=== PATIENT | male | born 1935 | race Caucasian/White ===

== ENCOUNTER → 2016-09-16 | Day surgery (SDC) | payer OTHER ==
[2016-09-14 12:28] VITALS: BMI 28.1
[~2016-09-16] MED LIST: HEPARIN NA (PORCINE) 5,000 UNITS/ML 1ML VIAL ONE; LACTATED RINGERS SOLUTION 1,000 ML IV SCH; LIDOCAINE HCL 1%, 10 MG/ML (20ML VIAL) ONE; LIDOCAINE HCL 1%, 10 MG/ML (50 mL VIAL) IJ ONE; MIDAZOLAM HCL 2 MG/2 ML SINGLE DOSE VIAL ONE; ONDANSETRON 4 MG/2 ML VIAL IVPUSH PRN; PROPOFOL 20 ML ONE; ceFAZolin SODIUM 1 GM VIAL IVPB ONE
--- NOTE | 2016-09-16 15:57 | OP ---
Operative Note - Note: Operative Date: 09/16/16 Pre-Operative Diagnosis: LLE claudication Operation: Aortogram, LLE angiogram, SFA orbital atherectomy, DCB angioplasty , with sfa stent placement Findings: mid sfa occlusion Post-Operative Diagnosis: Same as Pre-op Surgeon: Jerzy Kendrick Anesthesia: Fractional Estimated Blood Loss (mls): 50 Operative Report Dictated: Yes
--- NOTE | 2016-09-16 16:00 | HP ---
Admitting History and Physical - Admission Chief Complaint: LLE claudication - Smoking History Smoking history: Former smoker Have you smoked in the past 12 months: No If you are a former smoker, when did you quit?: 15YRS AGO - Alcohol/Substance Use Hx Alcohol Use: No Home Medications - Allergies Allergies/Adverse Reactions: Allergies Allergy/AdvReac Type Severity Reaction Status Date / Time No Known Allergies Allergy Verified 12/08/15 15:23 - Home Medications Home Medications: Ambulatory Orders Apixaban [Eliquis] 5 mg PO BID 09/14/16 Donepezil HCl [Aricept -] 5 mg PO DAILY 09/14/16 Ipratropium/Albuterol Sulfate [Combivent Respimat Inhal [place]] 4 gm IH QID PRN 09/14/16 Lisinopril/Hydrochlorothiazide [Lisinopril-Hctz 20-25 mg Tab] 1 each PO DAILY Metformin HCl [Metformin HCl ER] 1,000 mg PO BID 09/14/16 Metoprolol Tartrate [Lopressor] 50 mg PO BID 09/14/16 Tamsulosin HCl 0.4 mg PO HS 09/14/16 Physical Examination Vital Signs: Vital Signs Temperature 97.6 F 09/16/16 11:02 Pulse Rate 74 09/16/16 11:02 Respiratory Rate 18 09/16/16 11:02 Blood Pressure 100/58 09/16/16 11:02 O2 Sat by Pulse Oximetry (%) 95 09/16/16 11:02 Constitutional: Yes: Well Nourished Eyes: Yes: WNL HENT: Yes: WNL Neck: Yes: WNL Cardiovascular: Yes: WNL Respiratory: Yes: WNL Gastrointestinal: Yes: WNL Extremities: Yes: WNL Edema: No Peripheral Pulses WNL: No Integumentary: Yes: WNL Neurological: Yes: WNL Assessment/Plan LLE claudication 1. For angiogram left lower ext today
[2016-09-16 16:57] VITALS: TEMP 97.5
[2016-09-16 17:52] VITALS: BP 125/45; PULSE 78
--- NOTE | 2016-09-17 09:43 | OP ---
DATE OF OPERATION: 09/16/2016 PREOPERATIVE DIAGNOSIS: Left lower extremity claudication. POSTOPERATIVE DIAGNOSIS: Left lower extremity claudication. PROCEDURE: Aortogram, left lower extremity angiogram, superficial femoral artery orbital atherectomy, superficial femoral artery drug-coated balloon angioplasty, superficial femoral artery stent placement. SURGEON: Jerzy Borden DO ANESTHESIA: Fractional. BLOOD LOSS: 50 mL. INDICATIONS: The patient is an 81-year-old male who has left lower extremity claudication. 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 It was decided he would need an angiogram. The patient was consented for the procedure understanding all risks, benefits, and alternatives and was then taken to the operating room. DESCRIPTION OF PROCEDURE: Once in the operating room, he was laid on the operating room table in a supine manner. The area of the right and left groin was prepped and draped in a sterile surgical manner. We then went ahead and injected 10 mL of lidocaine 2% over the right common femoral artery. Under ultrasound guidance, we visualized the right common femoral artery, and our micropuncture needle was used, and we punctured the artery. Micropuncture wire was inserted, and a traditional 5-Ch[place]an sheath was inserted. A 0.035 floppy guidewire was inserted into the aorta followed by Omni Flush catheter. We then shot an aortogram via hand injection showing that the aorta and the iliac arteries were without any disease. We then used our 0.035 floppy guidewire up and over to the left common femoral artery, and our Omni Flush catheter followed. We then shot an angiogram of the left lower extremity showing that the common femoral artery, the profunda, and the proximal SFA were patent. The [id number] SFA was heavily calcified, and there was an area of occlusion that filled late. The popliteal artery was patent, and the patient had 1-vessel runoff just PT going into the foot. At this point, we placed a 0.035 stiff guidewire down into the SFA. Omni Flush catheter was removed. A 6 x 45 crossover sheath was placed. Then 5000 units of IV heparin was then administered to the patient. We then using our Quick-Cross catheter were able to navigate across our occlusion in the SFA and place our wire in the posterior tibial artery. We then exchanged the wire for a ViperWire. We then used a [employer] orbital atherectomy device and performed orbital atherectomy of the [id number] SFA. We then shot a completion angiogram showing that the SFA was patent but still stenosed. We then went ahead and used a 6 x 10 drug-coated balloon Lutonix balloon and performed angioplasty of the [id number]-sp-jldroa SFA. Balloon was left up for 2 minutes. We then went ahead and shot a completion angiogram showing that the SFA was patent but had recoil. At this point, we placed a 6 x 10 LifeStent in the SFA. Completion angiogram now showed that the SFA was completely patent and there was good, brisk flow, and the patient had good runoff into the foot with the PT. The patient also now had a palpable PT pulse. At this point, we brought our sheath up and over, and StarClose device was successfully deployed in the right common femoral artery. Areas were wet and dried, and Dermabond was placed. The patient tolerated the procedure with no complication. The patient was transferred to the PACU in stable condition. JERZY BORDEN DO [id number]
--- NOTE | 2016-09-20 10:59 | OP ---
DATE OF OPERATION: 09/16/2016 PREOPERATIVE DIAGNOSIS: Left lower extremity claudication. POSTOPERATIVE DIAGNOSIS: Left lower extremity claudication. PROCEDURE: Aortogram, left lower extremity angiogram, superficial femoral artery athrectomy with drug-coated balloon angioplasty with superficial femoral artery stent placement. SURGEON: Jerzy Borden DO ANESTHESIA: Fractional. BLOOD LOSS: 50 mL. INDICATIONS: The patient is an 81-year-old male who complains of severe lumbar claudication. Preoperative ultrasound in the office done shows that he has SFA stenosis/occlusion. It was decided that he would need an angiogram. The patient came in through ambulatory surgery. The patient was consented for the procedure understanding all risks, benefits, and alternatives and was then taken to the operating room. DESCRIPTION OF PROCEDURE: Once in the operating room, he was laid on the operating room table in a supine manner. The area of the right and left groin was prepped and draped in a sterile surgical manner. We then injected 10 mL of lidocaine 2% over the right common femoral artery. We then went ahead and punctured the right common femoral artery using a micropuncture needle. Micropuncture wire was inserted and a traditional 5-Slovenian sheath was inserted. We then placed a 0.035 floppy guidewire up into the aorta under fluoroscopy followed by an Omni Flush catheter. We then shot an aortogram via hand injection showing that the aorta and the iliac arteries were without any disease. We then took our 0.035 floppy guidewire and brought it over to the left common femoral artery followed by the Omni Flush catheter. We then shot a left lower extremity angiogram showing that the common femoral artery, the profunda, and the proximal SFA were patent. The [id number] SFA had an occlusion. We constituted in the distal SFA from collaterals. The patient had 1-vessel runoff, which was the posterior tibial artery going into the foot. The popliteal artery was patent as well. At this point, we placed a 0.035 stiff guidewire into the SFA. We then took out our Omni Flush catheter. We placed a 6 x 45 crossover sheath then 5000 units of IV heparin was administered to the patient. Using a Quick-Cross catheter, we selectively crossed our occlusion in the SFA, and our wire was then exchanged for a ViperWire. We then went ahead and used a [facility] orbital atherectomy device and performed orbital athrectomy of the SFA. We then went ahead and used a 6 x10 Lutonix drug-coated balloon and performed angioplasty of the SFA. Completion angiogram showed that there was a small dissection in the artery. We then went ahead and used a 6 x 10 LifeStent, and that was deployed. Completion angiogram showed that the SFA was now patent with good brisk flow going down into the foot. Using a 6 x 10 balloon, we ballooned the stent in place as well. At this point, we brought our sheath up and over. The patient now had a palpable PT pulses. We brought our sheath up and over, and StarClose device was successfully deployed in the right common femoral artery. Pressure held for 5 minutes. After there was no bleeding, the area was wet and dried, and Dermabond was placed. The patient tolerated the procedure with no complications. The patient was transferred to the PACU in stable condition. JERZY BORDEN DO NP/[id number]
== END | disposition home or self-care (01) ==
LOC: JASU-SURG 05:10
PROVIDERS: ATTEND Surgery Vascular Surgery
PROC: 047L3D1 Dilation of Left Femoral Artery with Intraluminal Device, using Drug-Coated Balloon, Percutaneous Approach (ICD-10-PCS; principal; 2016-09-16 12:30)
DX: I70.212 Atherosclerosis of native arteries of extremities with intermittent claudication, left leg (principal)
CPT/HCPCS: 37227; C1876; C2623; 76000-TC; 94760; J1644

== ENCOUNTER 2017-01-12 12:20 | Inpatient (IN) | payer OTHER ==
--- NOTE | 2017-01-12 13:34 | PDOC ---
History of Present Illness - General Chief Complaint: Shortness of Breath Stated Complaint: SOB Time Seen by Provider: 01/12/17 13:29 - History of Present Illness Initial Comments: 01/12/17 13:35 81 yo M with h/o HTN, NIDDM, COPD, A-fib (on Eliquis) who presents with SOB. Pt. reports increased SOB, and non productive cough beginning yesterday evening. Denies fevers/chills, N/V, chest pain, Méndez, orthopnea, pleuritic chest pain, hemoptysis, increased swelling, weakness, lightheadedness, sensory changes , abdominal pain, urinary complaints. Symtpoms not relieved with duoneb treatment x 4/day. Tobacco cessation 30 years ago. Denies h/o OH, cardiac stentting, CABG. Past History - Past Medical History Allergies/Adverse Reactions: Allergies Allergy/AdvReac Type Severity Reaction Status Date / Time azithromycin Allergy Verified 01/12/17 16:16 Home Medications: Ambulatory Orders Apixaban [Eliquis] 5 mg PO BID 09/14/16 Donepezil HCl [Aricept -] 5 mg PO DAILY 09/14/16 Lisinopril/Hydrochlorothiazide [Lisinopril-Hctz 20-25 mg Tab] 1 each PO DAILY Metformin HCl [Metformin HCl ER] 1,000 mg PO BID 09/14/16 Metoprolol Tartrate [Lopressor] 25 mg PO BID 09/14/16 Tamsulosin HCl 0.4 mg PO HS 09/14/16 Ipratropium/Albuterol Sulfate [Combivent Respimat Inhal [place]] 1 inh IH QID COPD: No Diabetes: Yes Disorders: Yes (BPH) HTN: Yes Hypercholesterolemia: Yes - Surgical History Appendectomy: Yes - Suicide/Smoking/Psychosocial Hx Smoking History: Never smoked Have you smoked in the past 12 months: No If you are a former smoker, when did you quit?: 15YRS AGO Hx Alcohol Use: No Drug/Substance Use Hx: No Substance Use Type: None Review of Systems - Review of Systems Comments:: 01/12/17 14:14 GENERAL/CONSTITUTIONAL: No fever or chills. No weakness. HEAD, EYES, EARS, NOSE AND THROAT: No change in vision. No ear pain or discharge. No sore throat.- CARDIOVASCULAR: + shortness of breath and non productive cough.No chest pain RESPIRATORY: + wheezing. No cough, or hemoptysis. GASTROINTESTINAL: No nausea, vomiting, diarrhea or constipation. GENITOURINARY: No dysuria, frequency, or change in urination. MUSCULOSKELETAL: No joint or muscle swelling or pain. No neck or back pain. SKIN: No rash NEUROLOGIC: No headache, vertigo, loss of consciousness, or change in strength/ sensation. ENDOCRINE: No increased thirst. No abnormal weight change HEMATOLOGIC/LYMPHATIC: No anemia, easy bleeding, or history of blood clots. ALLERGIC/IMMUNOLOGIC: No hives or skin allergy. *Physical Exam - Vital Signs Last Vital Signs Temp Pulse Resp BP Pulse Ox 97.4 F L 97 H 22 134/84 96 01/12/17 12:21 01/12/17 12:21 01/12/17 12:21 01/12/17 12:21 01/12/17 13:06 - Physical Exam Comments: 01/12/17 14:14 GENERAL: Awake, alert, and fully oriented, in no acute distress HEAD: No signs of trauma, normocephalic, atraumatic EYES: PERRLA, EOMI, sclera anicteric, conjunctiva clear ENT:Hearing grossly normal, nares patent, oropharynx clear without exudates. Moist mucosa NECK: Normal ROM, supple, no lymphadenopathy, JVD, or masses LUNGS: Diffuse inspiraory and expiratory rhonci BL. No distress, speaks full sentences. HEART: Irregular rate and rhythm, normal S1 and S2, no murmurs, rubs or gallops , peripheral pulses normal and equal bilaterally. EXTREMITIES : Normal inspection, Normal range of motion, no edema. No clubbing or cyanosis. SKIN: Warm, Dry, normal turgor, no rashes or lesions noted. Heart Score/ECG Review - History History: Slightly suspicious - Electrocardiogram EKG: Non specific repolarization disturbance - Age Age: >/= 65 - Risk Factors Risk Factors Heart Score: Yes Hx Hypertension Based on the list above the patient has:: 1-2 risk factors - Troponin Troponin: </= normal limit - Score Heart Score - Total: 4 - ST and T Early Repolarization: No Non Specific ST-T Wave changes: No - ECG Impressions Normal ECG: No Non-specific ST Elevation: No Ischemic Changes: No Tachycardia: Afib w/controlled rate ED Treatment Course - LABORATORY CBC & Chemistry Diagram: 01/12/17 13:57 01/12/17 13:30 Medical Decision Making - Medical Decision Making 01/12/17 14:42 81 yo M with h/o HTN, NIDDM, COPD, A-fib (on Eliquis) who arrives with increased SOB, non 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 Denies fevers/chills, N/V, chest pain, Méndez, orthopnea, pleuritic chest pain, hemoptysis, increased swelling , weakness, lightheadedness, sensory changes, abdominal pain, urinary complaints. Symtpoms not relieved with duoneb treatment x 4/day. Tobacco cessation 30 years ago. Denies h/o OH, cardiac stentting, CABG. Physical exam with diffuse insp/exp rhonci and irregular rate and rhythm. Temp 97.4. Patient s /s suggestive of COPD exacerbation of viral etiology vs. PNA. Low suspicion of PE in patient, with low risk PE based on well's criteria. No h/o PE/DVT, recent immobilization, malignancy, or clinical s/s. Will consider D-dimer if patient status not improved with treatment. Patient with cardiac risk factors. ACS/OH r/ o. ED Course : EKG: A-fib with controlled rate, absent NICHOLAS, STD, or TWI. CBC, CMP, Sepsis Protocol. 01/12/17 15:17 INR: 1.24 01/12/17 15:17 CMP/CBC: Unremarkable Trop: Neg 01/12/17 15:18 UA; 1 + Blood, WBC 7, RBC 1, Nitrite Neg 01/12/17 15:19 CXR: No acute pathology. 01/12/17 16:38 Breathing continues to be labored with audible bedside wheezing. Heart score with 13 % risk MACE. 01/12/17 16:51 Microblogged Hospitalist 01/12/17 17:12 Duonebs. Admit to Hospitalist Obs *DC/Admit/Observation/Transfer Diagnosis at time of Disposition: COPD exacerbation - Discharge Dispostion Disposition: HOME Condition at time of disposition: Stable Admit: No - Referrals Referrals: Alessandro Cruz MD [Primary Care Provider] - - Patient Instructions Printed Discharge Instructions: DI for Chronic Obstructive Pulmonary Disease Additional Instructions: Please return to the emergency department with any new or worsening symptoms or concerns. Please follow up with your primary care physician within the next one week. Please take Oral Prednisone once per day and Azithromycin two times per day. - Post Discharge Activity - Attestations Physician Attestion: 01/12/17 15:20 I attest to the information provided in this note.
[2017-01-12] MEDS ORDERED: SODIUM CHLORIDE 0.9% 1000 ML INFUS.BAG IV ONE (13:36)
[2017-01-12] MEDS ORDERED: ALBUTEROL SO4 2.5/IPRATROPIUM 0.5 INH SOL 3 ML VIAL.NEB. NEB PRN (14:08)
[2017-01-12 14:10] LABS: VENOUS BLOOD GAS HCO3 28.7 meq/L (19-25); VENOUS PH 7.42 (7.32-7.42)
[2017-01-12] MEDS ORDERED: ALBUTEROL SO4 2.5/IPRATROPIUM 0.5 INH SOL 3 ML VIAL.NEB. NEB ONE ×3 (14:13→21:18)
[2017-01-12 14:25] LABS: BASOPHIL 0.8 % (0-2.0); MCH 31.5 pg (25.7-33.7); MCHC 33.3 g/dl (32.0-35.9); MEAN CELL VOLUME 94.6 fl (80-96); MEAN PLT VOLUME 11.8 fl (7.5-11.1); NEUTROPHILS 47.8 % (42.8-82.8); PLATELET COUNT 121 K/MM3 (134-434); RDW 14.1 % (11.9-15.9)
[2017-01-12] MEDS ORDERED: predniSONE 20 MG TABLET (UD) PO ONE (14:28)
[2017-01-12 14:33] LABS: PH,URINE 6.5 (5.0-8.0); URINE APPEARANCE CLEAR; URINE BILIRUBIN NEGATIVE (NEGATIVE); URINE BLOOD 1+ (NEGATIVE); URINE COLOR LT. YELLOW; URINE GLUCOSE (UA) NEGATIVE (NEGATIVE); URINE KETONE NEGATIVE (NEGATIVE); URINE NITRITE NEGATIVE (NEGATIVE); URINE PROTEIN NEGATIVE (NEGATIVE); URINE UROBILINOGEN 0.2 mg/dL (0.2-1.0)
--- NOTE | 2017-01-12 14:39 | PDOC ---
Attending Attestation - Resident Resident Name: ApolinarJamaalCristian - ED Attending Attestation I have performed the following: I have examined & evaluated the patient, The case was reviewed & discussed with the resident, I agree w/resident's findings & plan, Exceptions are as noted - HPI HPI: 01/12/17 14:23 81 yo M with h/o HTN, NIDDM, COPD, A-fib (on Eliquis) p/w SOB since 01/05. Pt also reports new cough since last night and this prompted him to come in today. Pt has been using albuterol/atrovent Q4hrs with minimal relief. Denies fevers/ chills. Denies CP, LE edema, abd pain, N/V/D, weakness, dizziness, headache. - Physicial Exam PE: 01/12/17 14:40 GENERAL: Awake, alert, and fully oriented, in no acute distress HEAD: No signs of trauma EYES: PERRLA, EOMI, sclera anicteric, conjunctiva clear ENT: Auricles normal inspection, hearing grossly normal, nares patent, oropharynx clear without exudates. Moist mucosa NECK: Normal ROM, supple, no lymphadenopathy, JVD, or masses LUNGS: moderate air movement, diffuse mild wheezing HEART: Regular rate and rhythm, normal S1 and S2, no murmurs, rubs or gallops ABDOMEN: Soft, nontender, normoactive bowel sounds. No guarding, no rebound. No masses EXTREMITIES: Normal range of motion, no edema. No clubbing or cyanosis. No cords, erythema, or tenderness NEUROLOGICAL: Normal speech, cranial nerves intact, negative pronator drift, 5/ 5 strength in all 4 extremities, normal sensation to light touch in all 4 extremities, normal cerebellar exam, normal gait, normal reflexes and tone SKIN: Warm, Dry, normal turgor, no rashes or lesions noted. - Medical Decision Making 01/12/17 14:40 81-year-old male with multiple medical problems presents with shortness of breath for one week, now associated with a cough. Vitals remarkable initially for very mild hypothermia and slight tachycardia to 97. Sepsis protocol was ordered, however remainder patient's vitals are within normal limits. Patient is well-appearing and has diffuse wheezing on exam with moderate air movement. Findings consistent with likely COPD exacerbation plus or minus pneumonia given new cough and borderline vitals. ACS is also a consideration although his EKG is nonischemic. PE is a possibility however the patient is low risk and we have a better reason for his symptoms. Will consider PE if he does not improve with nebs and steroids.
[2017-01-12] MEDS ORDERED: predniSONE 20 MG TABLET (UD) ONE (14:41)
[2017-01-12 14:46] LABS: INR 1.24 (0.82-1.09)
[2017-01-12 14:49] LABS: ACTIVATED PTT 31.8 SECONDS (26.9-34.4)
[2017-01-12 14:55] LABS: ANION GAP 13 (8-16); BILIRUBIN,TOTAL 0.5 mg/dL (0.2-1.0); CALCIUM 9.3 mg/dL (8.5-10.1); CO2 26 mmol/L (21-32); GLUCOSE,RANDOM 94 mg/dL (74-106); SGOT/AST 11 U/L (15-37); SGPT/ALT 21 U/L (12-78); TOT PROT 7.4 g/dl (6.4-8.2)
[2017-01-12 14:58] LABS: ALK PHOS 55 U/L (45-117); CPK 106 IU/L (39-308); TROPONIN I < 0.02 ng/ml (0.00-0.05)
[2017-01-12 15:10] LABS: URINE MUCUS RARE; URINE RBC 7 /hpf (0-3); URINE WBC 1 /hpf (3-5)
[2017-01-12] MEDS ORDERED: MAGNESIUM SULF 50% (8.12 MEQ/2 ML-1 GM VIAL) IVPB ONE (16:48)
[2017-01-12] MEDS ORDERED: MAGNESIUM SULF 50% (8.12 MEQ/2 ML-1 GM VIAL) ONE (17:30)
--- NOTE | 2017-01-12 18:17 | HP ---
CHIEF COMPLAINT: Shortness of breath PCP: Dr. Alessandro Cruz, [address] [place] [address] Cardiology: [facility] HISTORY OF PRESENT ILLNESS: 81 year-old male with a PMH significant for HTN, NIDDM, COPD, atrial fibrillation on Eliquis, PAD s/p LLE angioplasty and stent placement (10/22/16 Dr. Kendrick). Presents to the ED with SOB, wheezing, and non-productive cough. Per granddaughter, who lives with patient and is excellent historian, patient has had episodes of SOB, audible wheezing, and heavy coughing since , worse over the past 24 hours. These symptoms occur at rest and with exertion , and the cough wakens him from sleep. In the past 24 hours patient nebulized at home 4x without relief of symptoms. Patient was hospitalized at [facility] in November 2016 for similar symptoms and treated with azithromycin to which patient developed hives. Patient denies fever, sweats, chills. Denies nausea, vomiting, diarrhea. Denies chest pain, palpitations, lightheadedness, lower extremity edema, orthopnea. He follows at the [facility], last echo or stress unknown. ER course was notable for: (1) ECG afib @ 85bpm (2) CXR unremarkable (3) Flat walking trial: walked 50 feet in ED, HR to 160s, became dyspneic and developed mild mid-chest pressure; maintained O2 sat at baseline 92-93% Recent Travel: No PAST MEDICAL HISTORY: Hypertension NIDDM COPD Atrial fibrillation on Eliquis PAD PAST SURGICAL HISTORY: LLE stent placement (10/2016) Social History: Smoking: quit 15 years ago Alcohol: no Drugs: no Family History: Allergies azithromycin Allergy (Verified 01/12/17 16:16) HOME MEDICATIONS: Home Medications Medication Instructions Recorded Apixaban [Eliquis] 5 mg PO BID 09/14/16 Donepezil HCl [Aricept -] 5 mg PO DAILY 09/14/16 Lisinopril/Hydrochlorothiazide 1 each PO DAILY 09/14/16 [Lisinopril-Hctz 20-25 mg Tab] Metformin HCl [Metformin HCl ER] 1,000 mg PO BID 09/14/16 Metoprolol Tartrate [Lopressor] 25 mg PO BID 09/14/16 Tamsulosin HCl 0.4 mg PO HS 09/14/16 Ipratropium/Albuterol Sulfate 1 inh IH QID 01/12/17 [Combivent Respimat Inhal [place]] REVIEW OF SYSTEMS CONSTITUTIONAL: Absent: fever, chills, diaphoresis, generalized weakness, malaise, loss of appetite, weight change HEENT: Absent: rhinorrhea, nasal congestion, throat pain, throat swelling, difficulty swallowing, mouth swelling, ear pain, eye pain, visual changes CARDIOVASCULAR: Present: chest pressure with walking Absent: syncope, palpitations, irregular heart rate, lightheadedness, peripheral edema RESPIRATORY: Present: cough, wheezing, SOB, TINAJERO Absent: cough, shortness of breath, dyspnea with exertion, orthopnea, wheezing, stridor, hemoptysis GASTROINTESTINAL: Absent: abdominal pain, abdominal distension, nausea, vomiting, diarrhea, constipation, melena, hematochezia GENITOURINARY: Absent: dysuria, frequency, urgency, hesitancy, hematuria, flank pain, genital pain MUSCULOSKELETAL: Absent: myalgia, arthralgia, joint swelling, back pain, neck pain SKIN: Absent: rash, itching, pallor HEMATOLOGIC/IMMUNOLOGIC: Absent: easy bleeding, easy bruising, lymphadenopathy, frequent infections ENDOCRINE: Absent: unexplained weight gain, unexplained weight loss, heat intolerance, cold intolerance NEUROLOGIC: Absent: headache, focal weakness or paresthesias, dizziness, unsteady gait, seizure, mental status changes, bladder or bowel incontinence PSYCHIATRIC: Absent: anxiety, depression, suicidal or homicidal ideation, hallucinations. PHYSICAL EXAMINATION Vital Signs - 24 hr 01/12/17 01/12/17 12:21 13:06 Temperature 97.4 F L Pulse Rate 97 H Respiratory 22 Rate Blood Pressure 134/84 O2 Sat by Pulse 95 96 Oximetry (%) GENERAL: Awake, alert, and fully oriented, in no acute distress. HEAD: Normal with no signs of trauma. EYES: Pupils equal, round and reactive to light, extraocular movements intact, sclera anicteric, conjunctiva clear. No lid lag. EARS, NOSE, THROAT: Ears normal, nares patent, oropharynx clear without exudates. Moist mucous membranes. NECK: Normal range of motion, supple without lymphadenopathy, JVD, or masses. LUNGS: Inspiratory and expiratory wheezing, prolonged expiratory phase; no rhonchi HEART: Irregular; pulse increased from low 100's to 160's with walking ABDOMEN: Soft, nontender, not distended, normoactive bowel sounds, no guarding, no rebound, no masses. MUSCULOSKELETAL: Normal range of motion at all joints. No bony deformities or tenderness. No CVA tenderness. UPPER EXTREMITIES: 2+ pulses, warm, well-perfused. No cyanosis. No clubbing. No peripheral edema. LOWER EXTREMITIES: 2+ pulses, warm, well-perfused. No calf tenderness. No peripheral edema. Varicosities right ankle. NEUROLOGICAL: Cranial nerves II-XII intact. Normal speech. Normal gait. PSYCHIATRIC: Cooperative. Good eye contact. Appropriate mood and affect. SKIN: Warm, dry, normal turgor. Laboratory Results - last 24 hr 01/12/17 01/12/17 01/12/17 13:30 13:30 13:57 WBC 8.0 RBC 4.75 Hgb 15.0 Hct 44.9 MCV 94.6 MCH 31.5 MCHC 33.3 RDW 14.1 Plt Count 121 L MPV 11.8 H Neutrophils % 47.8 Lymphocytes % 28.8 D Monocytes % 11.6 H Eosinophils % 11.0 H D Basophils % 0.8 PT with INR INR PTT (Actin FS) VBG pH POC VBG pCO2 POC VBG pO2 Mixed VBG HCO3 Sodium 137 Potassium 4.3 Chloride 98 Carbon Dioxide 26 Anion Gap 13 BUN 18 Creatinine 1.0 Creat Clearance w eGFR > 60 Random Glucose 94 Lactic Acid Calcium 9.3 Total Bilirubin 0.5 AST 11 L D ALT 21 Alkaline Phosphatase 55 Creatine Kinase 106 Troponin I < 0.02 < 0.02 B-Natriuretic Peptide Total Protein 7.4 Albumin 4.0 Urine Color Urine Appearance Urine pH Ur Specific [place] Urine Protein Urine Glucose (UA) Urine Ketones Urine Blood Urine Nitrite Urine Bilirubin Urine Urobilinogen Urine WBC (Auto) Urine RBC (Auto) Urine Mucus Blood Type Antibody Screen 01/12/17 01/12/17 01/12/17 13:57 13:57 13:57 WBC RBC Hgb Hct MCV MCH MCHC RDW Plt Count MPV Neutrophils % Lymphocytes % Monocytes % Eosinophils % Basophils % PT with INR 14.00 H INR 1.24 H PTT (Actin FS) 31.8 VBG pH POC VBG pCO2 POC VBG pO2 Mixed VBG HCO3 Sodium Potassium Chloride Carbon Dioxide Anion Gap BUN Creatinine Creat Clearance w eGFR Random Glucose Lactic Acid 2.2 H* Calcium Total Bilirubin AST ALT Alkaline Phosphatase Creatine Kinase Troponin I B-Natriuretic Peptide Total Protein Albumin Urine Color Urine Appearance Urine pH Ur Specific [place] Urine Protein Urine Glucose (UA) Urine Ketones Urine Blood Urine Nitrite Urine Bilirubin Urine Urobilinogen Urine WBC (Auto) Urine RBC (Auto) Urine Mucus Blood Type B POSITIVE Antibody Screen Negative 01/12/17 01/12/17 01/12/17 13:57 14:00 14:00 WBC RBC Hgb Hct MCV MCH MCHC RDW Plt Count MPV Neutrophils % Lymphocytes % Monocytes % Eosinophils % Basophils % PT with INR INR PTT (Actin FS) VBG pH 7.42 POC VBG pCO2 45.4 POC VBG pO2 49.3 H Mixed VBG HCO3 28.7 H Sodium Potassium Chloride Carbon Dioxide Anion Gap BUN Creatinine Creat Clearance w eGFR Random Glucose Lactic Acid Calcium Total Bilirubin AST ALT Alkaline Phosphatase Creatine Kinase Troponin I B-Natriuretic Peptide 425.38 Total Protein Albumin Urine Color Lt. yellow Urine Appearance Clear Urine pH 6.5 Ur Specific [place] 1.020 Urine Protein Negative Urine Glucose (UA) Negative Urine Ketones Negative Urine Blood 1+ H Urine Nitrite Negative Urine Bilirubin Negative Urine Urobilinogen 0.2 Urine WBC (Auto) 1 Urine RBC (Auto) 7 Urine Mucus Rare Blood Type Antibody Screen 01/12/17 17:00 WBC RBC Hgb Hct MCV MCH MCHC RDW Plt Count MPV Neutrophils % Lymphocytes % Monocytes % Eosinophils % Basophils % PT with INR INR PTT (Actin FS) VBG pH POC VBG pCO2 POC VBG pO2 Mixed VBG HCO3 Sodium Potassium Chloride Carbon Dioxide Anion Gap BUN Creatinine Creat Clearance w eGFR Random Glucose Lactic Acid 3.4 H* Calcium Total Bilirubin AST ALT Alkaline Phosphatase Creatine Kinase Troponin I B-Natriuretic Peptide Total Protein Albumin Urine Color Urine Appearance Urine pH Ur Specific [place] Urine Protein Urine Glucose (UA) Urine Ketones Urine Blood Urine Nitrite Urine Bilirubin Urine Urobilinogen Urine WBC (Auto) Urine RBC (Auto) Urine Mucus Blood Type Antibody Screen ASSESSMENT/PLAN 81 year-old male with a PMH significant for HTN, NIDDM, COPD, atrial fibrillation on Eliquis, PAD s/p LLE angioplasty and stent placement (10/22/16 Dr. Kendrick). Presents to the ED with SOB, wheezing, and non-productive cough. Shortness of breath, wheezing, cough --likely mutifactorial, COPD exacerbation v. infectious process v. cardiac asthma related to heart failure v. afib with RVR COPD --possibly COPD exacerbation although CXR is unremarkable and patient is not hypercapneic (ABG 7.41/42/75/26.8/95% on 2L) --duonebs --received prednisone 60mg PO in ED; continue --pulmonary consult r/o Community acquired pneumonia --no fever, no leukocytosis, no antibiotics, no infiltrates/consolidations on CXR --no antibiotics for now Afib with RVR --patient states his PCP recently lowered his dose of metoprolol from 25mg BID to daily --will switch to cardiazem 30mg BID due to respiratory issues --troponins x 3 --echo --cardiology consult f/o Heart Failure --echo --Lasix IV 40mg x 1 PAD s/p LLE stent --patient was taken off ASA when started on Eliquis --not on statin Lactic acidosis --likely Type B from albuterol use NIDDM --Novolog sliding scale coverage FEN Fluids: PO intake adequate Electrolytes: replete as indicated Nutrition: NPO for now for possible stress tomorrow DVT prophylaxis: on Eliquis Dispo: continues to require inpatient care. Visit type - Emergency Visit Emergency Visit: Yes ED Registration Date: 01/12/17 Care time: The patient presented to the Emergency Department on the above date and was hospitalized for further evaluation of their emergent condition. - New Patient This patient is new to me today: Yes Date on this admission: 01/13/17 - Critical Care Critical Care patient: No
[2017-01-12 19:14] LABS: URINE LEUK ESTERASE Negative (NEGATIVE)
[2017-01-12 19:26] LABS: ARTERIAL BLD GAS O2 SATURATION 95.3 % (90-98.9); ARTERIAL BLOOD GAS BASE EXCESS 2.4 meq/l (-2-2); ARTERIAL BLOOD GAS HCO3 26.8 meq/L (22-26); ARTERIAL BLOOD GAS PO2 75.4 mmHg (68-100); ARTERIAL BLOOD GAS pH 7.41 (7.35-7.45)
[2017-01-12 19:27] LABS: ALLENS TEST POSITIVE; ART PUNCT SITE RIGHT RADIAL; LPM/O2% 2L; PT. ON O2? YES; TYPE OF O2 NASAL CANNULA
[2017-01-12] MEDS ORDERED: FUROSEMIDE 40 MG/4 ML INJECTABLE VIAL IVPUSH ONE (20:04)
[2017-01-12] MEDS ORDERED: dilTIAZem HCL 30 MG TABLET (FP) ONE (20:59)
[2017-01-12] MEDS ORDERED: TAMSULOSIN HCL 0.4 MG CAP.ER.24H (FP) ONE (20:59)
[2017-01-12] MEDS ORDERED: INSULIN (NOVOLOG) ASPART 100 UNITS/ML 10ML VIAL ONE (21:00)
[2017-01-12] MEDS ORDERED: FUROSEMIDE 40 MG/4 ML INJECTABLE VIAL ONE (21:00)
[2017-01-12] MEDS: TAMSULOSIN HCL 0.4 MG CAP.ER.24H (FP) PO SCH (21:13)
[2017-01-12] MEDS: dilTIAZem HCL 30 MG TABLET (FP) PO SCH (21:13)
[2017-01-12] MEDS: INSULIN SLIDING SCALE (NOVOLOG) 1 VIAL SQ SCH ×2 (21:13→21:17)
[2017-01-12] MEDS: APIXABAN 5 MG TABLET PO SCH (21:28)
[2017-01-12] MEDS: ALBUTEROL SO4 2.5/IPRATROPIUM 0.5 INH SOL 3 ML VIAL.NEB. NEB SCH (21:28)
[2017-01-12 22:24] LABS: CPK 122 IU/L (39-308); TROPONIN I < 0.02 ng/ml (0.00-0.05)
[2017-01-12 23:50] VITALS: BMI 32.2
[2017-01-13] MEDS: ALBUTEROL SO4 2.5/IPRATROPIUM 0.5 INH SOL 3 ML VIAL.NEB. NEB SCH ×4 (00:14→13:00)
[2017-01-13] MEDS ORDERED: guaiFENesin 200 MG/10 ML 10 ML UNIT-DOSE CUPS PO ONE (03:19)
[2017-01-13] MEDS: INSULIN SLIDING SCALE (NOVOLOG) 1 VIAL SQ SCH ×4 (06:02→21:54)
--- NOTE | 2017-01-13 07:33 | PN ---
Physical Exam: SUBJECTIVE: Patient seen and examined at bedside. Coughing, SOB. Feels he can breathe in but can't get the air out. OBJECTIVE: Vital Signs Period Temp Pulse Resp BP Sys/Redd Pulse Ox Last 24 Hr 97.4 F-98.0 F 93-129 22-24 125-134/60-84 95-96 GENERAL: The patient is awake, alert, and fully oriented, in moderate distress due to coughing and SOB LUNGS: Diffuse inspiratory and expiratory wheezing; coughing HEART: Irregular S1, S2 without murmur, rub or gallop. ABDOMEN: Soft, protuberant, nontender, EXTREMITIES: 2+ pulses, warm, well-perfused, no edema. NEUROLOGICAL: Cranial nerves II through XII grossly intact. Normal speech, steady gait Laboratory Results - last 24 hr 01/12/17 01/12/17 01/12/17 13:30 13:30 13:57 WBC 8.0 RBC 4.75 Hgb 15.0 Hct 44.9 MCV 94.6 MCH 31.5 MCHC 33.3 RDW 14.1 Plt Count 121 L MPV 11.8 H Neutrophils % 47.8 Lymphocytes % 28.8 D Monocytes % 11.6 H Eosinophils % 11.0 H D Basophils % 0.8 PT with INR INR PTT (Actin FS) Anticoagulation Therapy Puncture Site ABG pH ABG pCO2 at Pt Temp ABG pO2 at Pt Temp ABG HCO3 ABG O2 Sat (Measured) ABG O2 Content ABG Base Excess Karan Test VBG pH POC VBG pCO2 POC VBG pO2 Mixed VBG HCO3 O2 Delivery Device Oxygen Flow Rate Vent Mode Vent Rate Mechanical Rate Pressure Support Vent Sodium 137 Potassium 4.3 Chloride 98 Carbon Dioxide 26 Anion Gap 13 BUN 18 Creatinine 1.0 Creat Clearance w eGFR > 60 POC Glucometer Random Glucose 94 Lactic Acid Calcium 9.3 Total Bilirubin 0.5 AST 11 L D ALT 21 Alkaline Phosphatase 55 Creatine Kinase 106 Troponin I < 0.02 < 0.02 B-Natriuretic Peptide Total Protein 7.4 Albumin 4.0 Urine Color Urine Appearance Urine pH Ur Specific [place] Urine Protein Urine Glucose (UA) Urine Ketones Urine Blood Urine Nitrite Urine Bilirubin Urine Urobilinogen Ur Leukocyte Esterase Urine WBC (Auto) Urine RBC (Auto) Urine Mucus Blood Type Antibody Screen 01/12/17 01/12/17 01/12/17 13:57 13:57 13:57 WBC RBC Hgb Hct MCV MCH MCHC RDW Plt Count MPV Neutrophils % Lymphocytes % Monocytes % Eosinophils % Basophils % PT with INR 14.00 H INR 1.24 H PTT (Actin FS) 31.8 Anticoagulation Therapy Puncture Site ABG pH ABG pCO2 at Pt Temp ABG pO2 at Pt Temp ABG HCO3 ABG O2 Sat (Measured) ABG O2 Content ABG Base Excess Karan Test VBG pH POC VBG pCO2 POC VBG pO2 Mixed VBG HCO3 O2 Delivery Device Oxygen Flow Rate Vent Mode Vent Rate Mechanical Rate Pressure Support Vent Sodium Potassium Chloride Carbon Dioxide Anion Gap BUN Creatinine Creat Clearance w eGFR POC Glucometer Random Glucose Lactic Acid 2.2 H* Calcium Total Bilirubin AST ALT Alkaline Phosphatase Creatine Kinase Troponin I B-Natriuretic Peptide Total Protein Albumin Urine Color Urine Appearance Urine pH Ur Specific [place] Urine Protein Urine Glucose (UA) Urine Ketones Urine Blood Urine Nitrite Urine Bilirubin Urine Urobilinogen Ur Leukocyte Esterase Urine WBC (Auto) Urine RBC (Auto) Urine Mucus Blood Type B POSITIVE Antibody Screen Negative 01/12/17 01/12/17 01/12/17 13:57 14:00 14:00 WBC RBC Hgb Hct MCV MCH MCHC RDW Plt Count MPV Neutrophils % Lymphocytes % Monocytes % Eosinophils % Basophils % PT with INR INR PTT (Actin FS) Anticoagulation Therapy Puncture Site ABG pH ABG pCO2 at Pt Temp ABG pO2 at Pt Temp ABG HCO3 ABG O2 Sat (Measured) ABG O2 Content ABG Base Excess Karan Test VBG pH 7.42 POC VBG pCO2 45.4 POC VBG pO2 49.3 H Mixed VBG HCO3 28.7 H O2 Delivery Device Oxygen Flow Rate Vent Mode Vent Rate Mechanical Rate Pressure Support Vent Sodium Potassium Chloride Carbon Dioxide Anion Gap BUN Creatinine Creat Clearance w eGFR POC Glucometer Random Glucose Lactic Acid Calcium Total Bilirubin AST ALT Alkaline Phosphatase Creatine Kinase Troponin I B-Natriuretic Peptide 425.38 Total Protein Albumin Urine Color Lt. yellow Urine Appearance Clear Urine pH 6.5 Ur Specific [place] 1.020 Urine Protein Negative Urine Glucose (UA) Negative Urine Ketones Negative Urine Blood 1+ H Urine Nitrite Negative Urine Bilirubin Negative Urine Urobilinogen 0.2 Ur Leukocyte Esterase Negative Urine WBC (Auto) 1 Urine RBC (Auto) 7 Urine Mucus Rare Blood Type Antibody Screen 01/12/17 01/12/17 01/12/17 17:00 19:14 21:40 WBC RBC Hgb Hct MCV MCH MCHC RDW Plt Count MPV Neutrophils % Lymphocytes % Monocytes % Eosinophils % Basophils % PT with INR INR PTT (Actin FS) Anticoagulation Therapy Y Puncture Site Right radial ABG pH 7.41 ABG pCO2 at Pt Temp 42.7 ABG pO2 at Pt Temp 75.4 ABG HCO3 26.8 H ABG O2 Sat (Measured) 95.3 ABG O2 Content 19.5 ABG Base Excess 2.4 H Karan Test Positive VBG pH POC VBG pCO2 POC VBG pO2 Mixed VBG HCO3 O2 Delivery Device Nasal cannula Oxygen Flow Rate 2l Vent Mode Y Vent Rate Y Mechanical Rate Y Pressure Support Vent Y Sodium Potassium Chloride Carbon Dioxide Anion Gap BUN Creatinine Creat Clearance w eGFR POC Glucometer Random Glucose Lactic Acid 3.4 H* Calcium Total Bilirubin AST ALT Alkaline Phosphatase Creatine Kinase 122 Troponin I < 0.02 B-Natriuretic Peptide Total Protein Albumin Urine Color Urine Appearance Urine pH Ur Specific [place] Urine Protein Urine Glucose (UA) Urine Ketones Urine Blood Urine Nitrite Urine Bilirubin Urine Urobilinogen Ur Leukocyte Esterase Urine WBC (Auto) Urine RBC (Auto) Urine Mucus Blood Type Antibody Screen 01/13/17 01/13/17 01/13/17 02:00 02:00 05:37 WBC RBC Hgb Hct MCV MCH MCHC RDW Plt Count MPV Neutrophils % Lymphocytes % Monocytes % Eosinophils % Basophils % PT with INR INR PTT (Actin FS) Anticoagulation Therapy Puncture Site ABG pH ABG pCO2 at Pt Temp ABG pO2 at Pt Temp ABG HCO3 ABG O2 Sat (Measured) ABG O2 Content ABG Base Excess Karan Test VBG pH POC VBG pCO2 POC VBG pO2 Mixed VBG HCO3 O2 Delivery Device Oxygen Flow Rate Vent Mode Vent Rate Mechanical Rate Pressure Support Vent Sodium Potassium Chloride Carbon Dioxide Anion Gap BUN Creatinine Creat Clearance w eGFR POC Glucometer 110 Random Glucose Lactic Acid 3.4 H* Calcium Total Bilirubin AST ALT Alkaline Phosphatase Creatine Kinase Troponin I < 0.02 B-Natriuretic Peptide Total Protein Albumin Urine Color Urine Appearance Urine pH Ur Specific [place] Urine Protein Urine Glucose (UA) Urine Ketones Urine Blood Urine Nitrite Urine Bilirubin Urine Urobilinogen Ur Leukocyte Esterase Urine WBC (Auto) Urine RBC (Auto) Urine Mucus Blood Type Antibody Screen Active Medications Generic Name Dose Route Start Last Admin Trade Name Freq PRN Reason Stop Dose Admin Albuterol/Ipratropium 1 amp 01/12/17 20:01 01/13/17 07:04 Duoneb - NEB 1 amp Q4H LARRY Administration Apixaban 5 mg 01/12/17 22:00 01/12/17 21:28 Eliquis - PO 5 mg BID LARRY Administration Diltiazem HCl 30 mg 01/12/17 20:30 01/12/17 21:13 Cardizem - PO 30 mg BID LARRY Administration Donepezil HCl 5 mg 01/13/17 10:00 Aricept - PO DAILY LARRY Insulin Aspart 1 vial 01/12/17 22:00 01/13/17 06:02 Novolog Vial Sliding Scale - SQ Not Given ACHS LARRY Protocol Prednisone 60 mg 01/13/17 10:00 Deltasone - PO DAILY LARRY Tamsulosin HCl 0.4 mg 01/12/17 22:00 01/12/17 21:13 Flomax - PO 0.4 mg HS LARRY Administration ASSESSMENT/PLAN 81 year-old male with a PMH significant for HTN, NIDDM, COPD, atrial fibrillation on Eliquis, PAD s/p LLE angioplasty and stent placement (10/22/16 Dr. Kendrick). Admitted for COPD exacerbation. Shortness of breath, wheezing, cough --likely mutifactorial, COPD exacerbation v. afib with RVR v. infectious process Acute COPD exacerbation --wheezing with bronchospasms --Solumedrol 125mg IV x 1; then medrol 40mg q8h --duonebs q4h scheduled and PRN --pulmonary following r/o Community acquired pneumonia --no fever, no leukocytosis, no antibiotics, no infiltrates/consolidations on CXR --no antibiotics for now Afib with RVR --d/c'd home metoprolol due to respiratory issues --rate reasonably well-controlled, continue cardizem BID; switch to long- acting when stable per cardiology --continue Eliquis r/o ACS --troponins x 3 negative --01/13 Echo: LV normal; RV normal; trace TR --Nuclear stress done, pending results PAD s/p LLE stent --patient was taken off ASA by PCP when started on Eliquis --not on statin Lactic acidosis --likely Type B from albuterol use NIDDM --Novolog sliding scale coverage FEN Fluids: PO intake adequate Electrolytes: replete as indicated Nutrition: diabetic DVT prophylaxis: on Eliquis Dispo: continues to require inpatient care. Visit type - Emergency Visit Emergency Visit: Yes ED Registration Date: 01/13/17 Care time: The patient presented to the Emergency Department on the above date and was hospitalized for further evaluation of their emergent condition. - New Patient This patient is new to me today: No - Critical Care Critical Care patient: No
[2017-01-13] MEDS: dilTIAZem HCL 30 MG TABLET (FP) PO SCH ×3 (08:38→21:53)
[2017-01-13] MEDS ORDERED: predniSONE 20 MG TABLET (UD) PO SCH (10:00)
--- NOTE | 2017-01-13 12:57 | EKG ---
Test Reason : Blood Pressure : / mmHG Vent. Rate : 085 BPM Atrial Rate : 187 BPM P-R Int : 000 ms QRS Dur : 084 ms QT Int : 370 ms P-R-T Axes : 000 053 055 degrees QTc Int : 440 ms ATRIAL FIBRILLATION ABNORMAL ECG NO PREVIOUS ECGS AVAILABLE Confirmed by MELLISSA VALERIO MD ([id number]) on 01/13/2017 12:56:56 PM Referred By: Confirmed By:MELLISSA VALERIO MD
--- NOTE | 2017-01-13 13:13 | CON.PULM ---
Consult Consult Specialty:: pulmonology Reason for Consultation:: We were called to evaluate the patient for shortness of breath and cough - History of Present Illness Chief Complaint: Shortness of breath History of Present Illness: The patient is a 81 yo m w/ PMH COPD, HTN, DM, Afib on eliquis, PAD s/p stenting comes into the ED c/o a 1 week history of progressive shortness of breath, wheezing and a cough - Alcohol/Substance Use Hx Alcohol Use: No - Smoking History Smoking history: Former smoker Have you smoked in the past 12 months: No If you are a former smoker, when did you quit?: 15YRS AGO Home Medications - Allergies Allergies/Adverse Reactions: Allergies Allergy/AdvReac Type Severity Reaction Status Date / Time azithromycin Allergy Verified 01/12/17 16:16 - Home Medications Home Medications: Ambulatory Orders Apixaban [Eliquis] 5 mg PO BID 09/14/16 Donepezil HCl [Aricept -] 5 mg PO DAILY 09/14/16 Lisinopril/Hydrochlorothiazide [Lisinopril-Hctz 20-25 mg Tab] 1 each PO DAILY Metformin HCl [Metformin HCl ER] 1,000 mg PO BID 09/14/16 Metoprolol Tartrate [Lopressor] 25 mg PO BID 09/14/16 Tamsulosin HCl 0.4 mg PO HS 09/14/16 Ipratropium/Albuterol Sulfate [Combivent Respimat Inhal [place]] 1 inh IH QID Physical Exam Vital Sings: Vital Signs Temperature 98.3 F 01/13/17 08:36 Pulse Rate 108 H 01/13/17 08:36 Respiratory Rate 20 01/13/17 08:41 Blood Pressure 121/85 01/13/17 08:36 O2 Sat by Pulse Oximetry (%) 96 01/13/17 08:41 Labs: CBC, BMP 01/12/17 13:57 01/12/17 13:30 ABG Results ABG pH 7.41 (7.35-7.45) 01/12/17 19:14 ABG pCO2 at Pt Temp 42.7 mmHg (35-45) 01/12/17 19:14 ABG pO2 at Pt Temp 75.4 mmHg (68-100) 01/12/17 19:14 ABG HCO3 26.8 meq/L (22-26) H 01/12/17 19:14 ABG O2 Sat (Measured) 95.3 % (90-98.9) 01/12/17 19:14 ABG O2 Content 19.5 % vol (15-22) 01/12/17 19:14 ABG Base Excess 2.4 meq/l (-2-2) H 01/12/17 19:14
--- NOTE | 2017-01-13 13:40 | CON.CARD ---
Consult Consult Specialty:: Cardiology Referred by:: Feliz SUBRAMANIAN Reason for Consultation:: sob - History of Present Illness Chief Complaint: sob History of Present Illness: 81 year-old male with a PMH significant for HTN, NIDDM, COPD, atrial fibrillation on Eliquis, PAD s/p LLE angioplasty and stent placement (10/22/16 Dr. Kendrick). Presents to the ED with SOB, wheezing, and non-productive cough. No chest pain or fever, but worsening TINAJERO for the past few days. No orthopnea, pnd or edema. Exercise tolerance is very poor. Echo 01/13/17: normal EF, trace TR. stress test done results pending. - History Source History Provided By: Patient, Medical Record Limitations to Obtaining History: No Limitations - Past Medical History Cardio/Vascular: Yes: AFIB Pulmonary: Yes: COPD - Alcohol/Substance Use Hx Alcohol Use: No - Smoking History Smoking history: Former smoker Have you smoked in the past 12 months: No If you are a former smoker, when did you quit?: 15YRS AGO Home Medications - Allergies Allergies/Adverse Reactions: Allergies Allergy/AdvReac Type Severity Reaction Status Date / Time azithromycin Allergy Verified 01/12/17 16:16 - Home Medications Home Medications: Ambulatory Orders Apixaban [Eliquis] 5 mg PO BID 09/14/16 Donepezil HCl [Aricept -] 5 mg PO DAILY 09/14/16 Lisinopril/Hydrochlorothiazide [Lisinopril-Hctz 20-25 mg Tab] 1 each PO DAILY Metformin HCl [Metformin HCl ER] 1,000 mg PO BID 09/14/16 Metoprolol Tartrate [Lopressor] 25 mg PO BID 09/14/16 Tamsulosin HCl 0.4 mg PO HS 09/14/16 Ipratropium/Albuterol Sulfate [Combivent Respimat Inhal [place]] 1 inh IH QID Vital Signs: Vital Signs Temperature 98.3 F 01/13/17 08:36 Pulse Rate 108 H 01/13/17 08:36 Respiratory Rate 20 01/13/17 08:41 Blood Pressure 121/85 01/13/17 08:36 O2 Sat by Pulse Oximetry (%) 96 01/13/17 08:41 - Other Data Labs, Other Data: CBC, BMP 01/12/17 13:57 01/12/17 13:30 INR, PTT INR 1.24 (0.82-1.09) H 01/12/17 13:57 Troponin, BNP 01/12/17 01/12/17 01/12/17 13:30 13:30 13:57 Troponin I < 0.02 < 0.02 B-Natriuretic Peptide 425.38 01/12/17 01/13/17 21:40 02:00 Troponin I < 0.02 < 0.02 B-Natriuretic Peptide Troponin, BNP 01/12/17 01/12/17 01/12/17 13:30 13:30 13:57 Troponin I < 0.02 < 0.02 B-Natriuretic Peptide 425.38 01/12/17 01/13/17 21:40 02:00 Troponin I < 0.02 < 0.02 B-Natriuretic Peptide Imaging - Results Chest X-ray: Report Reviewed (jero) EKG: Report Reviewed (afib no st changes) Problem List - Problems (1) SOB (shortness of breath) on exertion Assessment/Plan: No evidence of CHF by BNP or on examination or cxr. may be CAD. will follow up on stess test results. echo unremarkable. Code(s): R06.02 - SHORTNESS OF BREATH (2) Chronic a-fib Assessment/Plan: rates are controlled. change dilt to dilt cd 120 mg daily when stable. Continue eliquis for stroke protection. Code(s): I48.2 - CHRONIC ATRIAL FIBRILLATION
[2017-01-13] MEDS: ALBUTEROL SO4 2.5/IPRATROPIUM 0.5 INH SOL 3 ML VIAL.NEB. NEB PRN (14:40)
--- NOTE | 2017-01-13 14:51 | CON.PULM ---
Consult Consult Specialty:: PULMONARY Referred by:: MARILYNN Pipre Reason for Consultation:: shortness of breath - History of Present Illness Chief Complaint: shortness of breath History of Present Illness: 81yo male with h/o HTN, DM, atrial fibrillation, COPD, PAD who was admitted with worsening shortness of breath x 1 week. Reports a mostly nonproductive cough and audible wheezing per family. No fevers, chills or sweats. No chest pain or palpitations. He reports paroxysmal nocturnal dyspnea and orthopnea. No sick contacts. He is a former long time smoker, started at age 15, smoked on average 1 PPD until he was 60. Takes combivent at home 4 times a day. - History Source History Provided By: Patient, Medical Record Limitations to Obtaining History: Language Barrier - Past Medical History Cardio/Vascular: Yes: AFIB Pulmonary: Yes: COPD - Alcohol/Substance Use Hx Alcohol Use: No - Smoking History Smoking history: Former smoker Have you smoked in the past 12 months: No If you are a former smoker, when did you quit?: 15YRS AGO Home Medications - Allergies Allergies/Adverse Reactions: Allergies Allergy/AdvReac Type Severity Reaction Status Date / Time azithromycin Allergy Verified 01/12/17 16:16 - Home Medications Home Medications: Ambulatory Orders Apixaban [Eliquis] 5 mg PO BID 09/14/16 Donepezil HCl [Aricept -] 5 mg PO DAILY 09/14/16 Lisinopril/Hydrochlorothiazide [Lisinopril-Hctz 20-25 mg Tab] 1 each PO DAILY Metformin HCl [Metformin HCl ER] 1,000 mg PO BID 09/14/16 Metoprolol Tartrate [Lopressor] 25 mg PO BID 09/14/16 Tamsulosin HCl 0.4 mg PO HS 09/14/16 Ipratropium/Albuterol Sulfate [Combivent Respimat Inhal [place]] 1 inh IH QID Review of Systems - Review of Systems Constitutional: denies: Chills, Fever Eyes: denies: Recent Change in Vision HENT: denies: Nasal Congestion, Throat Pain Neck: denies: Stiffness, Tenderness Cardiovascular: reports: Shortness of Breath. denies: Chest Pain, Edema, Palpitations Respiratory: reports: Cough, Exercise Intolerance, Orthopnea, PND, SOB, SOB on Exertion, Wheezing Gastrointestinal: denies: Abdominal Pain, Nausea, Vomiting Genitourinary: denies: Dysuria, Hematuria Neurological: denies: Dizziness, Headache Endocrine: denies: Unexplained Weight Loss Physical Exam Vital Sings: Vital Signs Temperature 98.3 F 01/13/17 08:36 Pulse Rate 108 H 01/13/17 08:36 Respiratory Rate 20 01/13/17 08:41 Blood Pressure 121/85 01/13/17 08:36 O2 Sat by Pulse Oximetry (%) 96 01/13/17 08:41 Constitutional: Yes: Other (mildly tachypneic at rest) Eyes: Yes: Conjunctiva Clear, EOM Intact HENT: Yes: Atraumatic, Normocephalic Neck: Yes: Supple, Trachea Midline Cardiovascular: Yes: Regular Rate and Rhythm Respiratory: Yes: Rhonchi, Wheezes ...Clubbing: No Gastrointestinal: Yes: Normal Bowel Sounds, Soft. No: Tenderness Edema: Yes (trace) Labs: CBC, BMP 01/12/17 13:57 01/12/17 13:30 ABG Results ABG pH 7.41 (7.35-7.45) 01/12/17 19:14 ABG pCO2 at Pt Temp 42.7 mmHg (35-45) 01/12/17 19:14 ABG pO2 at Pt Temp 75.4 mmHg (68-100) 01/12/17 19:14 ABG HCO3 26.8 meq/L (22-26) H 01/12/17 19:14 ABG O2 Sat (Measured) 95.3 % (90-98.9) 01/12/17 19:14 ABG O2 Content 19.5 % vol (15-22) 01/12/17 19:14 ABG Base Excess 2.4 meq/l (-2-2) H 01/12/17 19:14 Imaging - Results Chest X-ray: Report Reviewed, Image Reviewed (no infiltrates) Problem List - Problems (1) COPD exacerbation Code(s): J44.1 - CHRONIC OBSTRUCTIVE PULMONARY DISEASE W (ACUTE) EXACERBATION (2) Chronic a-fib Code(s): I48.2 - CHRONIC ATRIAL FIBRILLATION Assessment/Plan Acute COPD Exacerbation Atrial Fibrillation HTN DM - will start medrol 40 mg q8h - inhaled bronchodilators standing and PRN - O2 as needed to keep SpO2 >90% - will need outpt PFTs and follow up - upon discharge, would start LABA/ICS and LAMA with albuterol MDI and d/c combivent - DVT prophylaxis Thank you for this consult Remington Barron MD
[2017-01-13] MEDS ORDERED: ALBUTEROL SO4 0.083% IH SOL 2.5 MG/3 ML VIAL.NEB. NEB PRN (14:52)
[2017-01-13] MEDS: DONEPEZIL HCL 5 MG TABLET (FP) PO SCH (15:02)
[2017-01-13] MEDS: APIXABAN 5 MG TABLET PO SCH ×2 (15:02→21:53)
[2017-01-13] MEDS ORDERED: methylPREDNISolone NA SUCC 125 MG/2 ML VIAL IVPUSH ONE (15:58)
[2017-01-13] MEDS ORDERED: ALBUTEROL SO4 2.5/IPRATROPIUM 0.5 INH SOL 3 ML VIAL.NEB. NEB SCH (18:00)
[2017-01-13] MEDS ORDERED: methylPREDNISolone NA SUCC 40 MG/1 ML VIAL IVPUSH SCH (18:00)
[2017-01-13] MEDS ORDERED: guaiFENesin/CODEINE 10 ML UNIT-DOSE CUPS PO STA (19:15)
[2017-01-13] MEDS ORDERED: guaiFENesin/CODEINE 10 ML UNIT-DOSE CUPS PO PRN (19:18)
[2017-01-13] MEDS: methylPREDNISolone NA SUCC 40 MG/1 ML VIAL IVPUSH SCH (21:53)
[2017-01-13] MEDS: TAMSULOSIN HCL 0.4 MG CAP.ER.24H (FP) PO SCH (21:53)
[2017-01-14] MEDS: methylPREDNISolone NA SUCC 40 MG/1 ML VIAL IVPUSH SCH ×4 (01:02→17:03)
[2017-01-14] MEDS: INSULIN SLIDING SCALE (NOVOLOG) 1 VIAL SQ SCH ×4 (06:30→21:37)
--- NOTE | 2017-01-14 08:45 | PN ---
Physical Exam: SUBJECTIVE: Patient seen and examined by me this AM - Pt sudanese-speaking. States breathing is much better; mild dry cough, improved. Denies any fever/chills, palpitations, SUAZO/dizziness, N/V, abdominal pain, LE edema, no neuro deficits - No major overnight events. Endorses good sleep, energy - Pt endorses mild aphasia/forgetfulness OBJECTIVE: Vital Signs Intake & Output 01/11/17 01/12/17 01/13/17 01/14/17 23:59 23:59 23:59 23:59 Intake Total 1000 100 Output Total 700 700 Balance 300 -700 100 Weight 85.094 kg Period Temp Pulse Resp BP Sys/Redd Pulse Ox Last 24 Hr 97 F-98.2 F 72-100 20-20 122-155/57-78 96 GENERAL: The patient is awake, alert, and fully oriented, in no acute distress. Resting comfortably in chair. HEAD: Normal with no signs of trauma. EYES: PERRL, extraocular movements intact, sclera anicteric, conjunctiva clear. No ptosis. ENT: Ears normal, nares patent, oropharynx clear without exudates, moist mucous membranes. NECK: Trachea midline, full range of motion, supple. LUNGS: Mild expiratory wheeze in upper lung ebll, decreased breath sounds at bases. No crackles, no accessory muscle use. HEART: Distant heart sounds. IRR IRR rhythm, S1, S2 without murmur, rub or gallop. ABDOMEN: Soft, nontender, nondistended, normoactive bowel sounds, no guarding, no rebound, no hepatosplenomegaly, no masses. Upper EXTREMITIES: 2+ pulses, warm, well-perfused, no edema. Lower extremities: 1+ non-pitting edema, WWP, 2+ DP, PT on R. 1+ DP on L, 2+ PT. NEUROLOGICAL: Cranial nerves II through XII grossly intact. Normal speech, gait not observed. PSYCH: Normal mood, normal affect. Slight thought-blocking. SKIN: Warm, dry, normal turgor, no rashes or lesions noted Laboratory Results - last 24 hr CBC, BMP 01/12/17 13:57 01/14/17 08:38 01/13/17 01/13/17 01/14/17 17:00 21:59 05:17 POC Glucometer 105 169 160 Active Medications Generic Name Dose Route Start Last Admin Trade Name Freq PRN Reason Stop Dose Admin Albuterol Sulfate 1 amp 01/13/17 14:52 Ventolin 0.083% Nebulizer Soln - NEB Q4H PRN SHORT OF BREATH/WHEEZING Albuterol/Ipratropium 1 amp 01/13/17 16:00 01/13/17 14:40 Duoneb - NEB 1 amp Q4H PRN Administration Apixaban 5 mg 01/12/17 22:00 01/13/17 21:53 Eliquis - PO 5 mg BID LARRY Administration Diltiazem HCl 30 mg 01/12/17 20:30 01/13/17 21:53 Cardizem - PO 30 mg BID LARRY Administration Donepezil HCl 5 mg 01/13/17 10:00 01/13/17 15:02 Aricept - PO 5 mg DAILY LARRY Administration Guaifenesin/Codeine Phosphate 10 ml 01/13/17 19:18 Robitussin Ac - PO Q8H PRN Insulin Aspart 1 vial 01/12/17 22:00 01/14/17 06:30 Novolog Vial Sliding Scale - SQ Not Given ACHS [facility] Protocol Methylprednisolone Sodium Succinate 40 mg 01/14/17 01:00 01/14/17 01:02 Solu-Medrol - IVPUSH Not Given Q8H [facility] Tamsulosin HCl 0.4 mg 01/12/17 22:00 01/13/17 21:53 Flomax - PO 0.4 mg HS LARRY Administration Microbiology 01/12/17 14:00 Blood - Peripheral Venous Blood Culture - Preliminary NO GROWTH OBTAINED AFTER 24 HOURS, INCUBATION TO CONTINUE FOR 4 DAYS. 01/12/17 13:57 Blood - Peripheral Venous Blood Culture - Preliminary NO GROWTH OBTAINED AFTER 24 HOURS, INCUBATION TO CONTINUE FOR 4 DAYS. 01/12/17 14:00 Urine - Urine Clean Catch Urine Culture - Final NO GROWTH OBTAINED Imaging: CXR 01/12 - Impression : No acute pathology. Degenerative changes. Old right clavicular trauma. CXR 01/14 - Clear. No pathology Nuclear stress test 01/13 - Fixed inferior wall defect with no ischemic changes. No ischemic changes with exercise EKG 01/12 - Irregularly irregular. Rate of 85s. Afib. NAD. QTc 440. ECHO 01/13 - Trace TR. LV/RV normal ASSESSMENT/PLAN: 81 yo male with pmh of NIIDM, COPD, atrial fibrillation (on eliquis), PAD s/p LLE angioplasty/stent (10/22/16), who presented to the ED with worsening SOB, wheezing and dry cough, nonresponsive to home neb tx. Pt has since improved significantly on IV steroids, brochodilators and O2. #Acute on chronic COPD exacerbation - Improved. ABG 7.41/43/75/27 on admission, 01/12. Sat 96% on NC - Pulm consulted. Recs appreciated. - Duoneb Q4H nebs - Medrol 40mg IV Q8h - Started symbicort 2 puff BID today - Ventolin Q4H PRN - Maintain sats >88%. O2 NC 2L. Escalate as needed #Possible CAP - afebrile since admission, WBC of 8 today - F/u blood, urine cx - Trend WBC, fever curve - No consolidations on CXR #Afib - Rate control. Currently on cardizem 30 BID - Switched cardizem to CD 120mg daily PO - BB being held due to respiratory symptoms. - On eliquis for AC, 5mg - Cardiology consulted. Recs appreciated #Suspected CHF - Clinically less likely - D/c diuresis - Normal echo #IDDM - BGM ACHS - novolog SS #PAD -No #MCI - Continue home aricept PPX Eliquis Protonix PPI FEN: Fluids: PO hydration Electrolytes: Daily BMP Nutrition: Cardiac diet Plan discussed with attending, Dr. Tori Caro, PGY1 Visit type - Emergency Visit Emergency Visit: Yes ED Registration Date: 01/13/17 Care time: The patient presented to the Emergency Department on the above date and was hospitalized for further evaluation of their emergent condition. - New Patient This patient is new to me today: Yes Date on this admission: 01/14/17 - Critical Care Critical Care patient: No
[2017-01-14] MEDS ORDERED: PT OWN MED DRAWER 7, Y5N ONE (09:03)
[2017-01-14 09:14] LABS: ANION GAP 7 (8-16); CALCIUM 8.8 mg/dL (8.5-10.1); CO2 29 mmol/L (21-32); GLUCOSE,RANDOM 137 mg/dL (74-106)
[2017-01-14] MEDS: dilTIAZem HCL 30 MG TABLET (FP) PO SCH (09:49)
[2017-01-14] MEDS: DONEPEZIL HCL 5 MG TABLET (FP) PO SCH (09:49)
[2017-01-14] MEDS: APIXABAN 5 MG TABLET PO SCH ×2 (09:49→21:36)
--- NOTE | 2017-01-14 11:27 | PN ---
Progress Note, Physician History of Present Illness: Pulmonology follow up Patient seen and examined at bedside. He states that his breathing is improved today. Patient states he no longer has shortness of breath when getting out of bed. Patient's cough productive of a small amount of sputum. - Current Medication List Current Medications: Active Medications Albuterol Sulfate (Ventolin 0.083% Nebulizer Soln -) 1 amp NEB Q4H PRN PRN Reason: SHORT OF BREATH/WHEEZING Albuterol/Ipratropium (Duoneb -) 1 amp NEB Q4H PRN Last Admin: 01/13/17 14:40 Dose: 1 amp Apixaban (Eliquis -) 5 mg PO BID [facility] Last Admin: 01/14/17 09:49 Dose: 5 mg Budesonide/Formoterol Fumarate (Symbicort 80/4.5mcg -) 2 puff IH BID LARRY Diltiazem HCl (Cardizem Cd -) 120 mg PO DAILY LARRY Donepezil HCl (Aricept -) 5 mg PO DAILY [facility] Last Admin: 01/14/17 09:49 Dose: 5 mg Guaifenesin/Codeine Phosphate (Robitussin Ac -) 10 ml PO Q8H PRN Insulin Aspart (Novolog Vial Sliding Scale -) 1 vial SQ ACHS [facility] PRN Reason: Protocol Last Admin: 01/14/17 06:30 Dose: Not Given Methylprednisolone Sodium Succinate (Solu-Medrol -) 40 mg IVPUSH Q8H [facility] Last Admin: 01/14/17 09:49 Dose: 40 mg Tamsulosin HCl (Flomax -) 0.4 mg PO HS [facility] Last Admin: 01/13/17 21:53 Dose: 0.4 mg - Objective Vital Signs: Vital Signs Temperature 98.1 F 01/14/17 10:00 Pulse Rate 93 H 01/14/17 10:00 Respiratory Rate 20 01/14/17 10:00 Blood Pressure 133/64 01/14/17 10:00 O2 Sat by Pulse Oximetry (%) 96 01/13/17 21:00 Constitutional: Yes: Well Nourished, No Distress, Calm HENT: Yes: Atraumatic, Normocephalic Cardiovascular: Yes: Regular Rate and Rhythm, S1, S2. No: JVD, Gallop, Murmur, Rub, S3, S4 Respiratory: Yes: Regular, Poor Air Entry, Wheezes, Other (prolonged expiratory phase. decreased air movement throughout. expiratory wheezes heard in all lung bell) Edema: Yes Edema: LLE: 2+, RLE: 2+ Labs: CBC, BMP 01/12/17 13:57 01/14/17 08:38 INR, PTT INR 1.24 (0.82-1.09) H 01/12/17 13:57 Assessment/Plan The patient is an 81 yo m w/ PMH HTN, DM, Afib, COPD, PAD c/o progressive SOB for the past week admitted to the hospital for COPD exacerbation. Patient is improving on current treatment #SOB 2/2 COPD exacerbation -albuterol PRN -duonebs PRN -Symbicort 2 puffs BID -solu-medrol 40mg IV Q8H -supplemental o2 as needed; patient not O2 dependent at home -No ABX indicated at this time -Patient will need outpatient f/u -begin LABA/ICS and LAMA on d/c w/ ALbuterol rescue inhaler PRN -advise CT chest
[2017-01-14] MEDS: BUDESONIDE/FORMETEROL FUMARATE 80/4.5 mcg INHALER IH SCH ×2 (12:21→21:37)
--- NOTE | 2017-01-14 12:45 | PN ---
Teaching Attending Note Name of Resident: Clint Weston ATTENDING PHYSICIAN STATEMENT I saw and evaluated the patient. I reviewed the resident's note and discussed the case with the resident. I agree with the resident's findings and plan as documented. PULMONARY ALERT,FEELING BETTER,LESS DYSPNEIC,+COUGH Problem List - Problems (1) COPD exacerbation Code(s): J44.1 - CHRONIC OBSTRUCTIVE PULMONARY DISEASE W (ACUTE) EXACERBATION (2) Chronic a-fib Code(s): I48.2 - CHRONIC ATRIAL FIBRILLATION Assessment/Plan Acute COPD Exacerbation Atrial Fibrillation HTN DM - w medrol 40 mg q8h - inhaled bronchodilators standing and PRN - O2 as needed to keep SpO2 >90% - will need outpt PFTs and follow up - DVT prophylaxis - Chest ct ASSESSMENT AND PLAN:
--- NOTE | 2017-01-14 14:38 | PN ---
Progress Note, Physician Chief Complaint: no complaints tele neg History of Present Illness: 81 year-old male with a PMH significant for HTN, NIDDM, COPD, atrial fibrillation on Eliquis, PAD s/p LLE angioplasty and stent placement (10/22/16 Dr. Kendrick). Presents to the ED with SOB, wheezing, and non-productive cough. No chest pain or fever, but worsening TINAJERO for the past few days. No orthopnea, pnd or edema. Exercise tolerance is very poor. Echo 01/13/17: normal EF, trace TR. stress test normal perfusion - Current Medication List Current Medications: Active Medications Albuterol Sulfate (Ventolin 0.083% Nebulizer Soln -) 1 amp NEB Q4H PRN PRN Reason: SHORT OF BREATH/WHEEZING Albuterol/Ipratropium (Duoneb -) 1 amp NEB Q4H PRN Last Admin: 01/13/17 14:40 Dose: 1 amp Apixaban (Eliquis -) 5 mg PO BID [facility] Last Admin: 01/14/17 09:49 Dose: 5 mg Budesonide/Formoterol Fumarate (Symbicort 80/4.5mcg -) 2 puff IH BID [facility] Last Admin: 01/14/17 12:21 Dose: 2 puff Diltiazem HCl (Cardizem Cd -) 120 mg PO DAILY [facility] Last Admin: 01/14/17 12:18 Dose: 120 mg Donepezil HCl (Aricept -) 5 mg PO DAILY [facility] Last Admin: 01/14/17 09:49 Dose: 5 mg Guaifenesin/Codeine Phosphate (Robitussin Ac -) 10 ml PO Q8H PRN Insulin Aspart (Novolog Vial Sliding Scale -) 1 vial SQ ACHS [facility] PRN Reason: Protocol Last Admin: 01/14/17 12:01 Dose: Not Given Methylprednisolone Sodium Succinate (Solu-Medrol -) 40 mg IVPUSH Q8H [facility] Last Admin: 01/14/17 09:49 Dose: 40 mg Tamsulosin HCl (Flomax -) 0.4 mg PO HS [facility] Last Admin: 01/13/17 21:53 Dose: 0.4 mg - Objective Vital Signs: Vital Signs Temperature 97.9 F 01/14/17 14:30 Pulse Rate 109 H 01/14/17 14:30 Respiratory Rate 20 01/14/17 14:30 Blood Pressure 135/71 01/14/17 14:30 O2 Sat by Pulse Oximetry (%) 96 01/14/17 11:52 Constitutional: Yes: No Distress, Calm Eyes: Yes: Conjunctiva Clear, EOM Intact HENT: Yes: Atraumatic, Normocephalic Neck: Yes: Trachea Midline Cardiovascular: Yes: Regular Rate and Rhythm Respiratory: Yes: CTA Bilaterally Gastrointestinal: Yes: Normal Bowel Sounds, Soft Musculoskeletal: Yes: WNL Extremities: Yes: WNL Edema: No Labs: CBC, BMP 01/12/17 13:57 01/14/17 08:38 INR, PTT INR 1.24 (0.82-1.09) H 01/12/17 13:57 Problem List - Problems (1) SOB (shortness of breath) on exertion Assessment/Plan: No evidence of CHF by BNP or on examination or cxr. echo and stress test unremarkable. will see as outpatient Code(s): R06.02 - SHORTNESS OF BREATH (2) Chronic a-fib Assessment/Plan: rates are controlled. change dilt to dilt cd 120 mg daily when stable. Continue eliquis for stroke protection. Code(s): I48.2 - CHRONIC ATRIAL FIBRILLATION
--- NOTE | 2017-01-14 17:49 | PN ---
Teaching Attending Note Name of Resident: Scooter Caro ATTENDING PHYSICIAN STATEMENT I saw and evaluated the patient. I reviewed the resident's note and discussed the case with the resident. I agree with the resident's findings and plan as documented. SUBJECTIVE: No fever or chills . SOB is better . has CP OBJECTIVE: NAD , pleasant and cooperative MMM Lungs : decreased breath sounds and decreased air movement Ext: 1+ edema on both legs . DP 2+ on R , 1+ on L . CV: irreg irreg ASSESSMENT AND PLAN: 81 y/o lady with h/o HTN, NIDDM, COPD, atrial fibrillation , PAD s/p LLE angioplasty and stent placement who presented with SOB and was found to have acute COPD exacerbation 1- Acute COPD exacerbation : slightly improved. No evidence of PNA - COnt steroids - cont NEbs - add symbicort - cont O2 supplements 2- H/o Exertional TINAJERO : currently has no CP stress with fixed inferior defect and no reversible ischemia - cont to monitor 3- A fib : rate controlled on cardizem BID - switch to CD 120 daily - off BB - cont eliquis 4- DM : on metformin at home - cont SSI here 5- DVT PX : on eliquis add protonic fro GI px
[2017-01-14] MEDS: PANTOPRAZOLE 40 MG TABLET (FP) PO SCH (18:08)
[2017-01-14] MEDS: TAMSULOSIN HCL 0.4 MG CAP.ER.24H (FP) PO SCH (21:36)
[2017-01-14] MEDS: ALBUTEROL SO4 2.5/IPRATROPIUM 0.5 INH SOL 3 ML VIAL.NEB. NEB PRN (21:45)
[2017-01-15] MEDS: methylPREDNISolone NA SUCC 40 MG/1 ML VIAL IVPUSH SCH ×2 (00:06→09:31)
[2017-01-15] MEDS: INSULIN SLIDING SCALE (NOVOLOG) 1 VIAL SQ SCH ×3 (06:30→16:23)
--- NOTE | 2017-01-15 09:08 | PN ---
Physical Exam: SUBJECTIVE: Patient seen and examined by me this AM - No overnight events. Refusing insulin injections. Ambulatory with much better breathing. mild wheezing - Denies fevers/chills, worsening SOB, cp, palpitations, n/v, abdominal pain, diarrhea/constipation, dysuria. Still with very mild dry cough. - Advise on importance of taking medication for glucose control and following up with PCP. - D/c home today given clearance by pulm team (Dr. Guerrero). OBJECTIVE: Vital Signs Intake & Output 01/12/17 01/13/17 01/14/17 01/15/17 23:59 23:59 23:59 23:59 Intake Total 1000 300 235 Output Total 700 700 Balance 300 -700 300 235 Weight 85.094 kg Period Temp Pulse Resp BP Sys/Redd Pulse Ox Last 24 Hr 97.5 F-98.9 F 88-109 20-20 126-145/57-71 96-96 GENERAL: The patient is awake, alert, and fully oriented, in no acute distress. Resting comfortably in chair. HEAD: Normal with no signs of trauma. EYES: PERRL, extraocular movements intact, sclera anicteric, conjunctiva clear. No ptosis. ENT: Ears normal, nares patent, oropharynx clear without exudates, moist mucous membranes. NECK: Trachea midline, full range of motion, supple. LUNGS: Trace expiratory wheeze in upper lung bell, remainder of lungs CTABL. No crackles, no accessory muscle use. HEART: Distant heart sounds. IRR IRR rhythm, S1, S2 without murmur, rub or gallop. ABDOMEN: Soft, nontender, nondistended, normoactive bowel sounds, no guarding, no rebound, no hepatosplenomegaly, no masses. Upper EXTREMITIES: 2+ pulses, warm, well-perfused, no edema. Lower extremities: 1+ non-pitting edema, WWP, 2+ DP, PT on R. 1+ DP on L, 2+ PT. Superficial tortuous veins on anterior shins bl. NEUROLOGICAL: Cranial nerves II through XII grossly intact. Normal speech, gait not observed. PSYCH: Normal mood, normal affect. Slight thought-blocking. SKIN: Warm, dry, normal turgor, no rashes or lesions noted Laboratory Results - last 24 hr 01/12/17 13:57 01/14/17 08:38 01/14/17 01/14/17 01/14/17 08:38 08:38 11:58 Sodium 135 L Potassium 4.2 Chloride 99 Carbon Dioxide 29 Anion Gap 7 L BUN 24 H D Creatinine 1.0 POC Glucometer 138 Random Glucose 137 H D Lactic Acid 1.6 Calcium 8.8 01/14/17 01/14/17 01/15/17 17:04 21:35 06:28 Sodium Potassium Chloride Carbon Dioxide Anion Gap BUN Creatinine POC Glucometer 134 136 152 Random Glucose Lactic Acid Calcium Active Medications Generic Name Dose Route Start Last Admin Trade Name Freq PRN Reason Stop Dose Admin Albuterol Sulfate 1 amp 01/13/17 14:52 Ventolin 0.083% Nebulizer Soln - NEB Q4H PRN SHORT OF BREATH/WHEEZING Albuterol/Ipratropium 1 amp 01/13/17 16:00 01/14/17 21:45 Duoneb - NEB 1 amp Q4H PRN Administration Apixaban 5 mg 01/12/17 22:00 01/14/17 21:36 Eliquis - PO 5 mg BID LARRY Administration Budesonide/Formoterol Fumarate 2 puff 01/14/17 11:00 01/14/17 21:37 Symbicort 80/4.5mcg - IH 2 puff BID LARRY Administration Diltiazem HCl 120 mg 01/14/17 11:00 01/14/17 12:18 Cardizem Cd - PO 120 mg DAILY LARRY Administration Donepezil HCl 5 mg 01/13/17 10:00 01/14/17 09:49 Aricept - PO 5 mg DAILY LARRY Administration Guaifenesin/Codeine Phosphate 10 ml 01/13/17 19:18 Robitussin Ac - PO Q8H PRN Insulin Aspart 1 vial 01/12/17 22:00 01/15/17 06:30 Novolog Vial Sliding Scale - SQ Not Given ACHS [facility] Protocol Methylprednisolone Sodium Succinate 40 mg 01/14/17 01:00 01/15/17 00:06 Solu-Medrol - IVPUSH 40 mg Q8H LARRY Administration Pantoprazole Sodium 40 mg 01/14/17 17:45 01/14/17 18:08 Protonix - PO 40 mg DAILY LARRY Administration Tamsulosin HCl 0.4 mg 01/12/17 22:00 01/14/17 21:36 Flomax - PO 0.4 mg HS LARRY Administration Microbiology 01/12/17 14:00 Blood - Peripheral Venous Blood Culture - Preliminary NO GROWTH OBTAINED AFTER 48 HOURS, INCUBATION TO CONTINUE FOR 3 DAYS. 01/12/17 13:57 Blood - Peripheral Venous Blood Culture - Preliminary NO GROWTH OBTAINED AFTER 48 HOURS, INCUBATION TO CONTINUE FOR 3 DAYS. 01/12/17 14:00 Urine - Urine Clean Catch Urine Culture - Final NO GROWTH OBTAINED Imaging: CXR 01/12 - Impression : No acute pathology. Degenerative changes. Old right clavicular trauma. CXR 01/14 - Clear. No pathology Nuclear stress test 01/13 - Fixed inferior wall defect with no ischemic changes. No ischemic changes with exercise EKG 01/12 - Irregularly irregular. Rate of 85s. Afib. NAD. QTc 440. ECHO 01/13 - Trace TR. LV/RV normal ASSESSMENT/PLAN: 81 yo male with pmh of NIIDM, COPD, atrial fibrillation (on eliquis), PAD s/p LLE angioplasty/stent (10/22/16), who presented to the ED with worsening SOB, wheezing and dry cough, nonresponsive to home neb tx. Pt has since improved significantly on IV steroids, brochodilators and O2. Pt with resolution of symptoms, ambulating w/ sats >90%, able to go home today. Pt counseled about nebulizer use. #Acute on chronic COPD exacerbation - Improved. ABG 7.41/43/75/27 on admission, 01/12. Satting 96% on NC - Satting above 90% pre and post work-out with RT - Pulm consulted. Recs appreciated. - D/c on PO prednisone 50mg, then 10mg taper every four days per Dr. Guerrero, pulm team - symbicort 2 puff BID as outpt - Singulair qHs as outpt - Ventolin IH, neb Q4H PRN - Maintain sats >88%. O2 NC 2L. Escalate as needed - Referred to Dr. Hicks as outpt wild life photographer. F/u in two weeks. - Rx for home nebulizer #Possible CAP - afebrile since admission, WBC of 8 yesterday - Resolved. Not infectious #Afib - Rate control - cardizem to CD 120mg daily PO for rate control on discharge - On eliquis for AC, 5mg. Will continue as outpt #IDDM - glucose well controlled on SS - Advised to continue home hypoglycemic regimen and f/u with PCP #[facility] - Continue home aricept Dispo: Discharge home today given clearance by pulmonary team, f/u with Dr. HICKS as outpt in two weeks. Plan discussed with attending, Dr. Tori Caro, PGY1 Visit type - Emergency Visit Emergency Visit: Yes ED Registration Date: 01/13/17 Care time: The patient presented to the Emergency Department on the above date and was hospitalized for further evaluation of their emergent condition. - New Patient This patient is new to me today: No - Critical Care Critical Care patient: No
[2017-01-15] MEDS ORDERED: PT OWN MED DRAWER 7, Y5N ONE ×2 (09:28→18:54)
[2017-01-15] MEDS: PANTOPRAZOLE 40 MG TABLET (FP) PO SCH (09:31)
[2017-01-15] MEDS: DONEPEZIL HCL 5 MG TABLET (FP) PO SCH (09:31)
[2017-01-15] MEDS: APIXABAN 5 MG TABLET PO SCH (09:31)
[2017-01-15] MEDS: BUDESONIDE/FORMETEROL FUMARATE 80/4.5 mcg INHALER IH SCH (09:33)
--- NOTE | 2017-01-15 12:32 | PN ---
Progress Note, Physician History of Present Illness: pulmonary alert,oob-chair,-c/o sob,-cp - Current Medication List Current Medications: Active Medications Albuterol Sulfate (Ventolin 0.083% Nebulizer Soln -) 1 amp NEB Q4H PRN PRN Reason: SHORT OF BREATH/WHEEZING Albuterol/Ipratropium (Duoneb -) 1 amp NEB Q4H PRN Last Admin: 01/14/17 21:45 Dose: 1 amp Apixaban (Eliquis -) 5 mg PO BID [facility] Last Admin: 01/15/17 09:31 Dose: 5 mg Budesonide/Formoterol Fumarate (Symbicort 80/4.5mcg -) 2 puff IH BID [facility] Last Admin: 01/15/17 09:33 Dose: 2 puff Diltiazem HCl (Cardizem Cd -) 120 mg PO DAILY [facility] Last Admin: 01/15/17 09:31 Dose: 120 mg Donepezil HCl (Aricept -) 5 mg PO DAILY [facility] Last Admin: 01/15/17 09:31 Dose: 5 mg Guaifenesin/Codeine Phosphate (Robitussin Ac -) 10 ml PO Q8H PRN Insulin Aspart (Novolog Vial Sliding Scale -) 1 vial SQ ACHS [facility] PRN Reason: Protocol Last Admin: 01/15/17 11:37 Dose: Not Given Methylprednisolone Sodium Succinate (Solu-Medrol -) 40 mg IVPUSH Q8H [facility] Last Admin: 01/15/17 09:31 Dose: 40 mg Pantoprazole Sodium (Protonix -) 40 mg PO DAILY [facility] Last Admin: 01/15/17 09:31 Dose: 40 mg Tamsulosin HCl (Flomax -) 0.4 mg PO HS [facility] Last Admin: 01/14/17 21:36 Dose: 0.4 mg - Objective Vital Signs: Vital Signs Temperature 98.6 F 01/15/17 10:00 Pulse Rate 89 01/15/17 10:00 Respiratory Rate 19 01/15/17 10:00 Blood Pressure 124/56 01/15/17 10:00 O2 Sat by Pulse Oximetry (%) 96 01/14/17 21:00 Constitutional: Yes: Well Nourished, Calm Eyes: Yes: WNL HENT: Yes: WNL Neck: Yes: WNL Cardiovascular: Yes: Pulse Irregular, S1, S2 Respiratory: Yes: Rales (few bibasilar crackles) Gastrointestinal: Yes: Normal Bowel Sounds, Soft Extremities: Yes: WNL Edema: No Assessment/Plan Problem List - Problems (1) COPD exacerbation Code(s): J44.1 - CHRONIC OBSTRUCTIVE PULMONARY DISEASE W (ACUTE) EXACERBATION (2) Chronic a-fib Code(s): I48.2 - CHRONIC ATRIAL FIBRILLATION Assessment/Plan Acute COPD Exacerbation improving Atrial Fibrillation HTN DM - steroid taper - inhaled bronchodilators standing and PRN - O2 - outpt PFTs and follow up - DVT prophylaxis - Chest ct ASSESSMENT AND PLAN:
[2017-01-15] MEDS ORDERED: TIOTROPIUM BROMIDE 18 MCG/INH (DEVICE W/ 5 CAPSULES) IH SCH (12:45)
[2017-01-15 13:50] VITALS: BP 136/68; TEMP 97.7
[2017-01-15 13:51] VITALS: PULSE 100
--- NOTE | 2017-01-15 15:25 | PN ---
Teaching Attending Note Name of Resident: Scooter Caro ATTENDING PHYSICIAN STATEMENT I saw and evaluated the patient. I reviewed the resident's note and discussed the case with the resident. I agree with the resident's findings and plan as documented. SUBJECTIVE: No fever or chills . has no SOB . no cough. OBJECTIVE: NAD , pleasant and cooperative MMM Lungs: decreased breath sounds and decreased air movement Ext: 1+ edema on both legs. DP 2+ on R , 1+ on L . CV: irreg irreg. ASSESSMENT AND PLAN: 81 y/o lady with h/o HTN, NIDDM, COPD, atrial fibrillation , PAD s/p LLE angioplasty and stent placement who presented with SOB and was found to have acute COPD exacerbation 1- Acute COPD exacerbation : slightly improved. No evidence of PNA - Cont steroids. will d/w with pulm possibility of switching to po steroids - cont NEbs - cont symbicort - cont singular - cont O2 supplements - pre-post ambulatory pulse ox . 2- H/o Exertional TINAJERO: currently has no CP stress with fixed inferior defect and no reversible ischemia - cont to monitor 3- A fib: - cont cardizem CD 120 daily - off BB - cont eliquis 4- DM : on metformin at home - cont SSI here 5- DVT PX : on eliquis protonix for GI prophylaxis can be dc when we switch to po steroids
[2017-01-15] MEDS ORDERED: MONTELUKAST NA 10 MG TABLET PO SCH (17:45)
--- NOTE | 2017-01-15 21:24 | DS ---
Physical Exam: SUBJECTIVE: Patient seen and examined - No overnight events. Refusing insulin injections. Ambulatory with much better breathing. mild wheezing - Denies fevers/chills, worsening SOB, cp, palpitations, n/v, abdominal pain, diarrhea/constipation, dysuria. Still with very mild dry cough. - Advise on importance of taking medication for glucose control and following up with PCP. - D/c home today given clearance by pulm team (Dr. Guerrero). OBJECTIVE: Vital Signs Period Temp Pulse Resp BP Sys/Redd Pulse Ox Last 24 Hr 97.5 F-98.6 F 88-101 19-20 124-136/56-68 90 PHYSICAL EXAM GENERAL: The patient is awake, alert, and fully oriented, in no acute distress. Resting comfortably in chair. HEAD: Normal with no signs of trauma. EYES: PERRL, extraocular movements intact, sclera anicteric, conjunctiva clear. No ptosis. ENT: Ears normal, nares patent, oropharynx clear without exudates, moist mucous membranes. NECK: Trachea midline, full range of motion, supple. LUNGS: Trace expiratory wheeze in upper lung bell, remainder of lungs CTABL. No crackles, no accessory muscle use. HEART: Distant heart sounds. IRR IRR rhythm, S1, S2 without murmur, rub or gallop. ABDOMEN: Soft, nontender, nondistended, normoactive bowel sounds, no guarding, no rebound, no hepatosplenomegaly, no masses. Upper EXTREMITIES: 2+ pulses, warm, well-perfused, no edema. Lower extremities: 1+ non-pitting edema, WWP, 2+ DP, PT on R. 1+ DP on L, 2+ PT. Superficial tortuous veins on anterior shins bl. NEUROLOGICAL: Cranial nerves II through XII grossly intact. Normal speech, gait not observed. PSYCH: Normal mood, normal affect. Slight thought-blocking. SKIN: Warm, dry, normal turgor, no rashes or lesions noted LABS Laboratory Results - last 24 hr 01/12/17 01/14/17 01/15/17 21:12 21:35 06:28 POC Glucometer 171.47510 136 152 01/15/17 01/15/17 11:24 16:20 POC Glucometer 172 140 HOSPITAL COURSE: Date of Admission:01/13/17 Date of Discharge: 01/15/17 81 yo male with pmh of NIIDM, COPD, atrial fibrillation (on eliquis), PAD s/p LLE angioplasty/stent (10/22/16), who presented to the ED with worsening SOB, wheezing and dry cough, nonresponsive to home neb tx. Pt has since improved significantly on IV steroids, brochodilators and O2. Today with resolution of symptoms, ambulating w/ sats >90% when walking with PT. Pt counseled about nebulizer use and need for f/u with PCP about blood glucose monitoring and management, given elevated blood glucose during stay. Micro: Microbiology 01/12/17 14:00 Blood - Peripheral Venous Blood Culture - Preliminary NO GROWTH OBTAINED AFTER 72 HOURS, INCUBATION TO CONTINUE FOR 2 DAYS. 01/12/17 13:57 Blood - Peripheral Venous Blood Culture - Preliminary NO GROWTH OBTAINED AFTER 72 HOURS, INCUBATION TO CONTINUE FOR 2 DAYS. 01/12/17 14:00 Urine - Urine Clean Catch Urine Culture - Final NO GROWTH OBTAINED Imaging/studies: CXR 01/12 - Impression : No acute pathology. Degenerative changes. Old right clavicular trauma. CXR 01/14 - Clear. No pathology Nuclear stress test 01/13 - Fixed inferior wall defect with no ischemic changes. No ischemic changes with exercise EKG 01/12 - Irregularly irregular. Rate of 85s. Afib. NAD. QTc 440. ECHO 01/13 - Trace TR. LV/RV normal Consults: Pulmonology - Seen by Dr. Barron, Dr. Guerrero Plan for outpt follow-up with Dr. Barron in clinic in two weeks Discharge recommendations per pulmonology: - steroid taper - inhaled bronchodilators standing and PRN - O2 - outpt PFTs and follow up - DVT prophylaxis - Chest ct Cardiology - Seen by Dr. Davis Management plan per cardiology: rates are controlled. change dilt to dilt cd 120 mg daily when stable. Continue eliquis for stroke protection. Patient stable and cleared for discharge given significant improvement in pulmonary function with plan for outpt follow-up with Dr. Barron for further management/monitor of COPD. Patient cleared by pulmonary team today (01/15) for discharge, as well. Minutes to complete discharge: 25 Discharge Summary Reason For Visit: OBSTRUCTIVE CHRONIC BRONCHITIS WITH EXACERBATION Condition: Improved - Instructions Diet, Activity, Other Instructions: During your admission you were treated for COPD exacerbation. The following changes/specifications were made regarding your medication regimen : Stop using your Combivent. Take Symbicort 2 puff twice a day Take Singulair 10mg 1 tablet every day. Take Spiriva 1 puff daily Take Prednisone in the following taper: 50mg (5 pills) for the first four days starting tomorrow 01/16/2017 - 01/20/2017 40mg (4 pills) the next four days 01/21 - 01/24 30mg (3 pills) the next four days 01/25 - 01/28 20mg (2 pills) the next four days 01/29 - Finally, take 10mg (1 pill) for the final four days, 02/02- 02/05. your last day will be 02/05 at which point the course will be complete. Take Ventolin inhaler every four hours as needed Follow-ups- Please follow up with your primary care physician, Dr. Cruz within 1 week. Please follow-up with a director patient financial services, contact information for Dr. Barron has been provided for you. Please call the office for an appointment. Please return to the emergency department with any new or worsening symptoms or concerns. Referrals: Alessandro Cruz MD [Primary Care Provider] - 1 Week Remington Barron MD, MD [Staff Physician] - 2 Weeks Disposition: HOME - Home Medications Comprehensive Discharge Medication List: Ambulatory Orders Apixaban [Eliquis] 5 mg PO BID 09/14/16 Donepezil HCl [Aricept -] 5 mg PO DAILY 09/14/16 Lisinopril/Hydrochlorothiazide [Lisinopril-Hctz 20-25 mg Tab] 1 each PO DAILY Metformin HCl [Metformin HCl ER] 1,000 mg PO BID 09/14/16 Tamsulosin HCl 0.4 mg PO HS 09/14/16 Albuterol 0.083% Nebulizer Vane [Ventolin 0.083% Nebulizer Soln -] 1 amp NEB Q4H PRN #1 amp 01/15/17 Albuterol Sulfate [Proair Respiclick] 90 mcg IH Q4H PRN #1 aer.pow.ba 01/15/17 Budesonide/Formeterol Fumarate [SYMBICORT 80/4.5mcg -] 2 puff IH BID #1 inhaler 01/15/17 Diltiazem Cd [Cardizem Cd -] 120 mg PO DAILY #30 cap.cd.24h 01/15/17 Montelukast Na [Singulair -] 10 mg PO HS #30 tab.chew 01/15/17 Nebulizer [Compact Compressor Nebulizer] 1 each MC PRN #1 each 01/15/17 Prednisone [Deltasone -] 10 mg PO DAILY #60 tablet 01/15/17 This patient is new to me today: No Emergency Visit: Yes ED Registration Date: 01/13/17 Care time: The patient presented to the Emergency Department on the above date and was hospitalized for further evaluation of their emergent condition. Critical Care patient: No - Discharge Referral Referred to [facility] Med P.C.: No
[2017-01-15] MEDS ORDERED: methylPREDNISolone NA SUCC 40 MG/1 ML VIAL IVPUSH SCH (22:00)
[2017-01-16] MEDS ORDERED: predniSONE 20 MG TABLET (UD) PO SCH (10:00)
--- NOTE | 2017-01-16 14:52 | HOSP ---
Subjective - Review of Symptoms Events since last encounter: grand daughter called, as one of her grandfather's legs is bigger than the other. it also felt colder. grad daughter was ase to bring Mr. Pulido to ER to be evaluated for any vascular compromise . she stated she would Physical Examination Vital Signs: Vital Signs Temperature 97.7 F 01/15/17 13:49 Pulse Rate 100 H 01/15/17 13:50 Respiratory Rate 20 01/15/17 13:49 Blood Pressure 136/68 01/15/17 13:49 O2 Sat by Pulse Oximetry (%) 90 L 01/15/17 13:50 Labs: CBC, BMP 01/12/17 13:57 01/14/17 08:38
== END 2017-01-15 19:20 | disposition home or self-care (01) | DRG 191 ==
LOC: JER 12:20 → JERBED 17:30 → J4S 22:14 → OBSVTOIN 01-13 15:42
PROVIDERS: ADMIT Internal Medicine; ATTEND Internal Medicine
DX: J44.1 Chronic obstructive pulmonary disease with (acute) exacerbation (principal); E87.2 Acidosis; E11.9 Type 2 diabetes mellitus without complications; I10 Essential (primary) hypertension; I48.2 Chronic atrial fibrillation; Z87.891 Personal history of nicotine dependence
CPT/HCPCS: 36415; 36600; 71010-TC; 78452-TC; 80048; 80053; 81003; 81015; 82550; 82803; 83605; 83880; 84484; 85025; 85610; 85730; 86850; 86900; 86901; 87040; 87086; 93005; 93010; 93017; 93306-TC; 94640; 94761; 97116-GP; 97161-GP; 99285-25; A9502; G0378

== ENCOUNTER → 2017-06-06 | Emergency (ER) | payer OTHER ==
[~2017-06-06] MED LIST changes: +ACETAMINOPHEN 325 MG TABLET (FP) ONE; +ACETAMINOPHEN 325 MG TABLET (FP) PO ONE; -HEPARIN NA (PORCINE) 5,000 UNITS/ML 1ML VIAL ONE; -LACTATED RINGERS SOLUTION 1,000 ML IV SCH; -LIDOCAINE HCL 1%, 10 MG/ML (20ML VIAL) ONE; -LIDOCAINE HCL 1%, 10 MG/ML (50 mL VIAL) IJ ONE; -MIDAZOLAM HCL 2 MG/2 ML SINGLE DOSE VIAL ONE; -ONDANSETRON 4 MG/2 ML VIAL IVPUSH PRN; -PROPOFOL 20 ML ONE; -ceFAZolin SODIUM 1 GM VIAL IVPB ONE
[2017-06-06 20:31] VITALS: BP 141/59; PULSE 99; TEMP 98.7; BMI 31.7
--- NOTE | 2017-06-06 20:31 | PDOC ---
Rapid Medical Evaluation Medical Evaluation: Allergies Allergy/AdvReac Type Severity Reaction Status Date / Time azithromycin Allergy Verified 01/12/17 16:16 06/06/17 20:25 I have performed a brief in-person evaluation of this patient. The patient presents with a chief complaint of: c/o R shoulder/neck pain x 1 week, "got really bad last night", denies CP, SOB. hx of HTN, NIDDM, COPD, atrial fibrillation on Eliquis, PAD s/p LLE angioplasty and stent placement, denies weakness to extremity, per son is at baseline Pertinent physical exam findings: tachy to 99, labored breathing I have ordered the following: labs, CXR The patient will proceed to the ED for further evaluation. Discharge Disposition - Diagnosis Pain - Referrals - Patient Instructions - Post Discharge Activity
[2017-06-06 21:19] LABS: ALBUMIN 3.7 g/dl (3.4-5.0); ANION GAP 6 (8-16); BILIRUBIN,TOTAL 0.7 mg/dL (0.2-1.0); BLOOD UREA NITROGEN 19 mg/dL (7-18); CALCIUM 8.5 mg/dL (8.5-10.1); CHLORIDE 104 mmol/L (98-107); CO2 26 mmol/L (21-32); CREATININE 1.1 mg/dL (0.7-1.3); GLUCOSE,RANDOM 152 mg/dL (74-106); POTASSIUM 3.9 mmol/L (3.5-5.1); SGOT/AST 14 U/L (15-37); SGPT/ALT 15 U/L (12-78); SODIUM 136 mmol/L (136-145)
[2017-06-06 21:21] LABS: ALK PHOS 58 U/L (45-117)
[2017-06-06 21:28] LABS: MAGNESIUM 1.7 mg/dL (1.8-2.4)
[2017-06-06 21:29] LABS: N-TERMINAL BNP 830.75 pg/ml (5-450)
[2017-06-06 21:30] LABS: INR 1.35 (0.82-1.09); PROTHROMBIN TIME (PATIENT) 15.3 SEC (9.7-13.0)
--- NOTE | 2017-06-06 21:46 | PDOC ---
History of Present Illness - General History Source: Patient Exam Limitations: No Limitations - History of Present Illness Initial Comments: 06/07/17 00:22 The patient is a 81 year old male, with a significant past medical history of HTN, NIDDM, COPD, atrial fibrillation on Eliquis, PAD s/p LLE angioplasty and stent placement who presents to the emergency department with gradual onset of R neck and R shoulder pain for the past week. Patient reports pain is 8/10 in severity, radiating to R shoulder exacerbated with movement. Patient denies numbness, tingling or weakness of RUE. Patient denied any injuries, trauma heavy lifting or recent falls. Patient did not take any pain medications and presents to the ED for further evaluation. Patient denies chest pain, palpitations, diaphoresis, headache or dizziness. Patient denies fever, chills, coughing, sob, abdominal pain, nausea, vomit, diarrhea or constipation. Patient denies dysuria, frequency, urgency or hematuria. Patient denies sick contacts or recent travel. Allergies: azithromycin Past surgical history: LLE angioplasty Social history: Former smoker (15 years ago) PCP;: Not on staff <Christina Nielsen - Last Filed: 06/07/17 00:22> <Antelmo Emanuel - Last Filed: 06/07/17 00:51> - General Chief Complaint: Pain Stated Complaint: RIGHT SIDE HEAD PAIN Time Seen by Provider: 06/06/17 20:42 Past History <Christina Nielsen - Last Filed: 06/07/17 00:22> - Past Medical History Anemia: No Asthma: No Cancer: No Cardiac Disorders: Yes (afib) COPD: Yes CHF: No Dementia: No Diabetes: Yes GI Disorders: No Disorders: Yes (BPH) HTN: Yes Hypercholesterolemia: Yes Liver Disease: No Seizures: No Thyroid Disease: No - Surgical History Abdominal Surgery: No Appendectomy: Yes Cardiac Surgery: No Cholecystectomy: No Lung Surgery: No Neurologic Surgery: No Orthopedic Surgery: No - Suicide/Smoking/Psychosocial Hx Smoking History: Former smoker Have you smoked in the past 12 months: No If you are a former smoker, when did you quit?: 2001 Information on smoking cessation initiated: No Hx Alcohol Use: No Drug/Substance Use Hx: No Substance Use Type: None Hx Substance Use Treatment: No <Antelmo Emanuel - Last Filed: 06/07/17 00:51> - Past Medical History Allergies/Adverse Reactions: Allergies Allergy/AdvReac Type Severity Reaction Status Date / Time azithromycin Allergy Verified 06/06/17 20:25 Home Medications: Ambulatory Orders Apixaban [Eliquis] 5 mg PO BID 09/14/16 Donepezil HCl [Aricept -] 5 mg PO DAILY 09/14/16 Tamsulosin HCl 0.4 mg PO HS 09/14/16 Albuterol 0.083% Nebulizer Vane [Ventolin 0.083% Nebulizer Soln -] 1 amp NEB Q4H PRN #1 amp 01/15/17 Albuterol Sulfate [Proair Respiclick] 90 mcg IH Q4H PRN #1 aer.pow.ba 01/15/17 Budesonide/Formeterol Fumarate [SYMBICORT 80/4.5mcg -] 2 puff IH BID #1 inhaler 01/15/17 Montelukast Na [Singulair -] 10 mg PO HS #30 tab.chew 01/15/17 Nebulizer [Compact Compressor Nebulizer] 1 each MC PRN #1 each 01/15/17 Diltiazem Cd [Cardizem Cd -] 180 mg PO DAILY 06/06/17 Review of Systems - Review of Systems Able to Perform ROS?: Yes Comments:: 06/07/17 00:22 All other systems reviewed and are negative except noted in HPI <Christina Nielsen - Last Filed: 06/07/17 00:22> *Physical Exam - Vital Signs Last Vital Signs Temp Pulse Resp BP Pulse Ox 98.7 F 99 H 20 141/59 96 06/06/17 20:29 06/06/17 20:29 06/06/17 20:29 06/06/17 20:29 06/06/17 20:29 - Physical Exam Comments: 06/07/17 00:22 GENERAL: The patient is awake, alert, and fully oriented, Nontoxic - in no acute distress. HEAD: Normocephalic, atraumatic. EYES: extraocular movements intact, sclera anicteric, conjunctiva clear. ENT: Normal voice, Moist mucous membranes. NECK: ROM limited due to pain (able to look R but exacerbates pain), supple neck , TTP R SCM LUNGS: Breath sounds equal, clear to auscultation bilaterally. No wheezes, no rhonchi, no rales. HEART: irregularly irregular, ABDOMEN: Soft, nontender, normoactive bowel sounds. No guarding, no rebound. . No CVA tenderness EXTREMITIES: Normal range of motion, no edema. No clubbing or cyanosis. No cords, erythema, or tenderness. PSYCH: Normal mood, normal affect. SKIN: Warm, Dry, normal turgor, NEURO: Mental status: The patient is oriented x3. Cranial nerves: Cranial nerves II through XII are intact Motor: The upper extremities are 5 over 5 in all muscle groups. The lower extremities are 5 over 5 in all muscle groups. Negative pronator drift Sensation: Sensation is intact to light touch throughout. romberg negative Cerebellar: [id number] is normal in both upper extremities. Gait: Normal. <Christina Nielsen - Last Filed: 06/07/17 00:22> - Vital Signs Last Vital Signs Temp Pulse Resp BP Pulse Ox 98.7 F 99 H 20 141/59 96 06/06/17 20:29 06/06/17 20:29 06/06/17 20:29 06/06/17 20:29 06/06/17 20:29 <Antelmo Emanuel - Last Filed: 06/07/17 00:51> Heart Score/ECG Review - ECG Impressions Comment:: 06/06/17 21:54 Twelve-lead EKG was performed and reviewed by me. Irregularly irregular, rate of [address] changes suggestive of acute ischemia <Antelmo Emanuel - Last Filed: 06/07/17 00:51> ED Treatment Course - LABORATORY CBC & Chemistry Diagram: 06/06/17 23:13 06/06/17 20:44 - ADDITIONAL ORDERS Additional order review: Laboratory Results 06/06/17 06/06/17 06/06/17 21:03 20:44 20:44 PT with INR 15.30 H INR 1.35 H D-Dimer 232 Sodium 136 Potassium 3.9 Chloride 104 Carbon Dioxide 26 Anion Gap 6 L BUN 19 H D Creatinine 1.1 Creat Clearance w eGFR > 60 Random Glucose 152 H Calcium 8.5 Magnesium 1.7 L Total Bilirubin 0.7 D AST 14 L D ALT 15 D Alkaline Phosphatase 58 Creatine Kinase 78 Troponin I < 0.02 B-Natriuretic Peptide 830.75 H Total Protein 7.0 Albumin 3.7 06/06/17 23:13 RBC 4.42 MCV 93.9 MCHC 34.9 RDW 13.4 MPV 12.2 H Neutrophils % 73.7 D Lymphocytes % 13.2 D Monocytes % 12.8 H Eosinophils % 0.1 D Basophils % 0.2 - Medications Given in the ED: ED Medications Discontinued Medications Generic Name Dose Route Start Last Admin Trade Name Adelia PRN Reason Stop Dose Admin Acetaminophen 650 mg 06/06/17 21:45 06/06/17 21:47 Tylenol - PO 06/06/17 21:46 650 mg ONCE ONE Administration <Christina Nielsen - Last Filed: 06/07/17 00:22> - LABORATORY CBC & Chemistry Diagram: 06/06/17 23:13 06/06/17 20:44 - ADDITIONAL ORDERS Additional order review: Laboratory Results 06/06/17 06/06/17 06/06/17 21:03 20:44 20:44 PT with INR 15.30 H INR 1.35 H D-Dimer 232 Sodium 136 Potassium 3.9 Chloride 104 Carbon Dioxide 26 Anion Gap 6 L BUN 19 H D Creatinine 1.1 Creat Clearance w eGFR > 60 Random Glucose 152 H Calcium 8.5 Magnesium 1.7 L Total Bilirubin 0.7 D AST 14 L D ALT 15 D Alkaline Phosphatase 58 Creatine Kinase 78 Troponin I < 0.02 B-Natriuretic Peptide 830.75 H Total Protein 7.0 Albumin 3.7 <Antelmo Emanuel - Last Filed: 06/07/17 00:51> Medical Decision Making - Medical Decision Making 06/06/17 21:46 81y M hx of htn, dm, copd, afib on eliquis, PAD s/p LLE angioplasty presents with R shoulder/neck pain x 1 week, pt notes the pain started gradually, and was intermittently but has worsened significantly last night. no associated cp, sob, palpitations, numbness/tingling/weakness, vision changes, speech changes, no recent trauma/falls/lifting. pt has not taken any medications for pain. pain worse with turning to the right on exam pt has moderate tenderness of R neck strap muscles/SCM no bruits appreciated suspect muscle strain will give tylenol will reassess A portion of this note was documented by scribe services under my direction. I have reviewed the details of the note, within reason, and agree with the documentation with the following case summary and management plan written by 06/06/17 23:29 cxr and shoulder xray neg for acute process 06/07/17 00:51 pt eloped prior to discharge while awaiting cbc but pt feeling improved, requesting to go home will have pt fu with pmd <Antelmo Emanuel - Last Filed: 06/07/17 00:51> *DC/Admit/Observation/Transfer - Attestations Scribe Attestion: 06/07/17 00:23 Documentation prepared by Christina Nielsen, acting as medical charge entry specialist for Antelmo Emanuel MD <Christina Nielsen - Last Filed: 06/07/17 00:22> <Antelmo Emanuel - Last Filed: 06/07/17 00:51> Diagnosis at time of Disposition: Neck muscle spasm - Discharge Dispostion Disposition: ELOPED Condition at time of disposition: Improved - Patient Instructions Printed Discharge Instructions: DI for Neck Pain
[2017-06-06 23:36] LABS: BASO % 0.2 % (0-2.0); EOS % 0.1 % (0-4.5); HEMATOCRIT 41.5 % (35.4-49); HEMOGLOBIN 14.5 GM/dL (11.7-16.9); LYMPH % 13.2 % (8-40); MCH 32.7 pg (25.7-33.7); MCHC 34.9 g/dl (32.0-35.9); MEAN CELL VOLUME 93.9 fl (80-96); MEAN PLT VOLUME 12.2 fl (7.5-11.1); MONO % 12.8 % (3.8-10.2); NEUT % 73.7 % (42.8-82.8); PLATELET COUNT 123 K/MM3 (134-434); RBC 4.42 M/mm3 (4.00-5.60); RDW 13.4 % (11.9-15.9)
--- NOTE | 2017-06-07 10:16 | EKG ---
Test Reason : Blood Pressure : / mmHG Vent. Rate : 081 BPM Atrial Rate : 085 BPM P-R Int : 000 ms QRS Dur : 086 ms QT Int : 360 ms P-R-T Axes : 000 079 067 degrees QTc Int : 418 ms ATRIAL FIBRILLATION ABNORMAL ECG WHEN COMPARED WITH ECG OF 12-JAN-2017 14:29, NO SIGNIFICANT CHANGE WAS FOUND Confirmed by MD JYOTI, SAIRA ([id number]) on 06/07/2017 10:16:21 AM Referred By: Confirmed By:SAIRA MONTES MD
== END | disposition left against medical advice (07) ==
LOC: JER 20:10
DX: M62.838 Other muscle spasm (principal); I10 Essential (primary) hypertension; E11.9 Type 2 diabetes mellitus without complications; J44.9 Chronic obstructive pulmonary disease, unspecified; N40.0 Benign prostatic hyperplasia without lower urinary tract symptoms; I48.91 Unspecified atrial fibrillation; Z79.01 Long term (current) use of anticoagulants; I73.89 Other specified peripheral vascular diseases; Z95.828 Presence of other vascular implants and grafts; Z87.891 Personal history of nicotine dependence
CPT/HCPCS: 36415; 71045-TC-FY; 73030-TC-RT-FY; 80053; 82550; 83735; 83880; 84484; 85025; 85379; 85610; 93005; 93010; 99282-25

== ENCOUNTER 2018-09-30 14:11 | Inpatient (IN) | payer OTHER ==
--- NOTE | 2018-09-30 15:21 | PDOC ---
History of Present Illness - General Chief Complaint: Shortness of Breath Stated Complaint: SHORTNESS OF BREATH Time Seen by Provider: 09/30/18 15:21 - History of Present Illness Initial Comments: 09/30/18 17:59 The patient is an 83 year old male with a history of HTN, HLD, COPD, DM, Afib who presents for evaluation of shortness of breath, itching, and edema. The patient is accompanied by family who assist in providing the history. They report that the patient has been experiencing 3-5 days of worsening shortness of breath with associated non-productive cough. The patient presented to his primary care provider's office 3 days ago and was given decadron, however continued to have worsening symptoms prompting his presentation to the ED for further evaluation. He also notes worsening lower extremity edema with associated itching. He otherwise denies fevers, chills, chest pain, nausea, vomiting, abdominal pain, or changes with urination or bowel movements. Past History - Past Medical History Allergies/Adverse Reactions: Allergies Allergy/AdvReac Type Severity Reaction Status Date / Time azithromycin Allergy Verified 09/30/18 14:23 Home Medications: Ambulatory Orders Apixaban [Eliquis] 5 mg PO BID 09/14/16 Tamsulosin HCl 0.8 mg PO HS 09/14/16 Albuterol 0.083% Nebulizer Vane [Ventolin 0.083% Nebulizer Soln -] 1 amp NEB Q4H PRN #1 amp 01/15/17 Albuterol Sulfate [Proair Respiclick] 90 mcg IH Q4H PRN #1 aer.[email or web address] 01/15/17 Montelukast Na [Singulair -] 10 mg PO HS #30 tab.chew 01/15/17 Diltiazem Cd [Cardizem Cd -] 60 mg PO DAILY 06/06/17 Furosemide [Lasix] 20 mg PO DAILY 09/30/18 Budesonide/Formeterol Fumarate [SYMBICORT 160/4.5mcg -] 2 inh PO BID 10/02/18 Ipratropium/Albuterol Sulfate [Combivent Respimat Inhal Jackson] 4 gm IH DAILY Lisinopril/Hydrochlorothiazide [Lisinopril-Hctz 20-25 mg Tab] 20 - 25 tab PO DAILY 08/19/19 Anemia: No Asthma: No Cancer: No Cardiac Disorders: Yes (afib) COPD: Yes CHF: No Dementia: No Diabetes: Yes GI Disorders: No Disorders: Yes (BPH) HTN: Yes Hypercholesterolemia: Yes Liver Disease: No Seizures: No Thyroid Disease: No - Surgical History Abdominal Surgery: No Appendectomy: Yes Cardiac Surgery: No Cholecystectomy: No Lung Surgery: No Neurologic Surgery: No Orthopedic Surgery: No - Immunization History Immunization Up to Date: Yes - Suicide/Smoking/Psychosocial Hx Smoking History: Never smoked Have you smoked in the past 12 months: No If you are a former smoker, when did you quit?: 2001 Information on smoking cessation initiated: No Hx Alcohol Use: No Drug/Substance Use Hx: No Substance Use Type: None Hx Substance Use Treatment: No Review of Systems - Review of Systems Comments:: 09/30/18 18:06 Constitutional: No fevers, chills, fatigue, malaise HEENT: No Rhinorrhea, nasal congestion, visual changes Cardiovascular: No chest pain, syncope, palpitations, lightheadedness Respiratory: Non-productive cough, SOB. No Hemoptysis, Gastrointestinal: No Abdominal pain, Nausea, Vomiting, Constipation, Diarrhea, Melena Genitourinary: No Dysuria, Frequency, Urgency, Hesitancy, Hematuria, Flank pain Musculoskeletal: No Myalgia, arthralgia Skin: Lower extremity edema, itching. No rashes, bruising, pallor Neurologic: No Headache, Dizziness, Numbness, Weakness, or Tingling Psychiatric: No Hallucinations. No SI or HI *Physical Exam - Vital Signs Last Vital Signs Temp Pulse Resp BP Pulse Ox 113 H 22 H 140/57 L 95 09/30/18 14:23 09/30/18 14:23 09/30/18 14:23 09/30/18 14:23 - Physical Exam Comments: 09/30/18 18:07 General Appearance: Nourished. No Apparent Distress HEENT: No Pharyngeal Erythema, Tonsillar Exudate, Tonsillar Erythema Neck: No Cervical Lymphadenopathy Respiratory/Chest: Normal Breath Sounds. Mild expiratory wheezing noted on exam. No Crackles, Rales, Rhonchi, Cardiovascular: Regular Rhythm, Regular Rate. No Murmur, Gallops, Rubs Gastrointestinal/Abdominal: Normal Bowel Sounds, Soft. No Guarding, Rebound, Tenderness Musculoskeletal: No CVA Tenderness Extremity: 2+ pitting edema in the lower extremities bilaterally. Normal Capillary Refill Integumentary: Normal Color, Dry, Warm Neurologic: Fully Oriented, Alert, Normal Mood/Affect, Normal Response, ED Treatment Course - LABORATORY CBC & Chemistry Diagram: 10/03/18 06:20 10/03/18 06:20 Medical Decision Making - Medical Decision Making 09/30/18 18:08 The patient is an 83 year old male with a history of HTN, HLD, COPD, DM, Afib who presents for evaluation of shortness of breath, itching, and edema. Differential includes but is not limited to: ACS, COPD, CHF, Infectious, Metabolic derangement. Given the patient's history and physical exam, we will obtain a cbc, cmp, troponin, bnp, ekg, chest plain film to evaluate further. We will treat the patient with duonebs, solumedrol and continue to monitor and reassess while here in the ED. 09/30/18 19:41 CBC, cmp, troponin, bnp, are unremarkable. Chest plain film is unremarkable. The patient continues to be symptomatic on exam and we believe he requires admission for further monitoring and management. We discussed the case with the admitting team who accepted the patient for admission. *DC/Admit/Observation/Transfer Diagnosis at time of Disposition: COPD exacerbation, SOB (shortness of breath) on exertion - Discharge Dispostion Condition at time of disposition: Improved Decision to Admit order: Yes - Referrals - Patient Instructions - Post Discharge Activity
[2018-09-30] MEDS ORDERED: ALBUTEROL SO4 2.5/IPRATROPIUM 0.5 INH SOL 3 ML VIAL.NEB. NEB ONE ×3 (15:35→16:12)
[2018-09-30] MEDS ORDERED: methylPREDNISolone NA SUCC 125 MG/2 ML VIAL IVPUSH ONE (15:36)
[2018-09-30] MEDS ORDERED: methylPREDNISolone NA SUCC 125 MG/2 ML VIAL ONE (15:37)
[2018-09-30 16:25] LABS: BASO % 0.3 % (0-2.0); EOS % 8.8 % (0-4.5); HEMATOCRIT 43.2 % (35.4-49); HEMOGLOBIN 14.6 GM/dL (11.7-16.9); LYMPH % 17.9 % (8-40); MCH 32.7 pg (25.7-33.7); MCHC 33.9 g/dl (32.0-35.9); MEAN CELL VOLUME 96.5 fl (80-96); MEAN PLT VOLUME 12.5 fl (7.5-11.1); MONO % 10.4 % (3.8-10.2); NEUT % 62.6 % (42.8-82.8); PLATELET COUNT 167 K/MM3 (134-434); RBC 4.48 M/mm3 (4.00-5.60); RDW 14.3 % (11.9-15.9)
[2018-09-30 16:30] LABS: ALBUMIN 3.4 g/dl (3.4-5.0); BILIRUBIN,TOTAL 0.6 mg/dL (0.2-1); BLOOD UREA NITROGEN 22.2 mg/dL (7-18); CALCIUM 8.8 mg/dL (8.5-10.1); CREATININE 1.2 mg/dL (0.55-1.3); N-TERMINAL BNP 417.8 pg/ml (5-450); TOT PROT 6.7 g/dl (6.4-8.2)
--- NOTE | 2018-09-30 16:46 | PDOC ---
Documentation entered by Flavia Sanchez SCRIBE, acting as scribe for Antelmo Emanuel MD. Antelmo Emanuel MD: This documentation has been prepared by the Laura evans Nirvannie, SCRIBE, under my direction and personally reviewed by me in its entirety. I confirm that the documentation accurately reflects all work, treatment, procedures, and medical decision making performed by me. Attending Attestation - Resident Resident Name: Morales Espinoza - ED Attending Attestation I have performed the following: I have examined & evaluated the patient, The case was reviewed & discussed with the resident, I agree w/resident's findings & plan, Exceptions are as noted - HPI HPI: 09/30/18 16:51 The patient is a 83 year old male, with a significant past medical history of HTN, NIDDM, COPD, atrial fibrillation (on Eliquis), PAD s/p LLE angioplasty and stent placement, who presents to the emergency department with, 3 days of shortness of breath and diffuse itchy, pruritic rash. Patient notes seeing his PCP 3 days ago for his shortness of breath at which time he received Decadron and was put on at home O2. He denies chest pain or palpitations. Allergies: Azithromycin Past surgical history: LLE angioplasty. Social history: Former smoker (+15 years ago) Primary Care Physician: Dr. Alessandro Cruz - Physicial Exam PE: 09/30/18 16:43 GENERAL: The patient is awake, alert, and fully oriented, Nontoxic - in no acute distress. HEAD: Normocephalic, atraumatic. EYES: extraocular movements intact, sclera anicteric, conjunctiva clear. ENT: Normal voice, Moist mucous membranes. NECK: Normal range of motion, supple LUNGS: Bscattered wheezing bilaterally HEART: Regular rate and rhythm, normal S1 and S2 without murmur, rub or gallop. ABDOMEN: Soft, nontender, No guarding, no rebound. No CVA tenderness EXTREMITIES: Normal range of motion, +1 pitting edema b/l, no calf tenderness, negative homans NEUROLOGICAL: No facial assymetry, Normal speech, PSYCH: Normal mood, normal affect. SKIN: Warm, Dry, normal turgor, - Medical Decision Making 09/30/18 16:00 83y M hx of COPD pt presents with worsening sob, nonproductive cough x 3 days +purititis and erythema +edema went to PMD a few days ago and was given decadron, sob/cough worsening, so came to the ED for evaluation +good air movement mild wheeing b/l b/l LE edema neg homans cxr to r/o pna will ck labs will give pt steroids, nebs and reassess 09/30/18 16:01 09/30/18 16:45 suspect copd exacerbation no focal intfiltrates on cxr
--- NOTE | 2018-09-30 19:13 | PN ---
Teaching Attending Note Name of Resident: Joanne Rees ATTENDING PHYSICIAN STATEMENT I saw and evaluated the patient. I reviewed the resident's note and discussed the case with the resident. I agree with the resident's findings and plan as documented. SUBJECTIVE: Patient is an 83 year old man with a PMH of HTN, HLD, COPD, NIDDM, Afib (on Eliquis), LLE angioplasty/stenting and Azithromycin allergy who presents for evaluation of shortness of breath, itching, and edema. The patient is accompanied by family who assisted in providing the history. They report that the patient has been experiencing 3-5 days of worsening shortness of breath with associated non-productive cough. The patient presented to his primary care provider's office 3 days ago and was given decadron, however continued to have worsening symptoms prompting his presentation to the ER for further evaluation. He also notes worsening lower extremity edema with associated itching. He otherwise denies fevers, chills, chest pain, nausea, vomiting, abdominal pain, or changes with urination or bowel movements. Ex-smoker. OBJECTIVE: Alert Vital Signs Period Temp Pulse Resp BP Sys/Redd Pulse Ox Last 24 Hr 97.8 F-97.8 F 98-113 20-22 136-140/57-74 94-95 HEENT: No Jaundice, eye redness or discharge, PERRLA, EOMI. Normocephalic, atraumatic. External ears are normal and hearing is grossly intact. No nasal discharge. Neck: Supple, nontender. No palpable adenopathy or thyromegaly. No JVD Chest: Good effort. Expiratory wheezing. Clear to percussion. Heart: Regular. No S3, rub or murmur Abdomen: Not distended, soft, nontender and no HSM. No rebound or guarding. Normal bowel sounds. Ext: Peripheral pulses intact. Leg edema. Skin: Warm and dry. No petechiae, rash or ecchymosis. Neuro: Alert. Oriented x3. CN 2-12 grossly intact. Sensation grossly intact in all four extremities and DTR are symmetric. Psych: Appropriate mood and affect. Good insight. Current Medications Generic Name Dose Route Start Last Admin Trade Name Freq PRN Reason Stop Dose Admin Insulin Aspart 1 vial 09/30/18 22:00 Novolog Vial Sliding Scale - SQ ACHS [facility] Protocol Home Medications Medication Instructions Recorded Apixaban [Eliquis] 5 mg PO BID 09/14/16 Tamsulosin HCl 0.4 mg PO HS 09/14/16 Albuterol 0.083% Nebulizer Vane 1 amp NEB Q4H PRN #1 amp 01/15/17 [Ventolin 0.083% Nebulizer Soln -] Albuterol Sulfate [Proair 90 mcg IH Q4H PRN #1 aer.[email or web address] 01/15/17 Respiclick] Montelukast Na [Singulair -] 10 mg PO HS #30 tab.chew 01/15/17 Diltiazem Cd [Cardizem Cd -] 180 mg PO DAILY 06/06/17 Abnormal Lab Results 09/30/18 09/30/18 15:30 15:30 MCV 96.5 H MPV 12.5 H Monocytes % 10.4 H Eosinophils % 8.8 H D Anion Gap 7 L BUN 22.2 H ASSESSMENT AND PLAN: 1. New onset CHF/COPD exacerbation -Findings suggest new onset CHF superimposed on COPD exacerbation. CXR shows cardiomegaly, increased interstitial markings, hilar prominence and blunted costophrenic angles. Only ECHO on record from 01/13 was reported as normal. EKG shows Afib with no significant ST-T wave changes. Will treat with Xopenex and solumedrol for COPD and give escalating doses of IV lasix to treat CHF. Will get stat Urinalysis, chest CT and ECHO. Restrict dietary salt intake, get daily standing weight and consult Cardiology. Will continue comprehensive care of all his comorbid conditions including Eliquis for Afib. 2. DM For now, we will hold the home diabetes drugs and implement sliding scale insulin regimen. Provide comprehensive diabetes care with patient teaching and counseling about the importance of adherence to prescribed diabetes regimen, euglycemia, eye care and foot care. 3. Obesity Counseled on the risks associated with obesity. Will provide patient all the necessary assistance, counseling and positive reinforcement to facilitate weight loss. 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 4. Hypertension - Restart suitable outpatient antihypertensive drugs when clinically appropriate. 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 Nonpharmacologic measures to control hypertension like weight loss , salt restriction and exercise discussed. Importance of adherence to treatment regimen and attainment of normotension emphasized. 5. DVT prophylaxis - On Eliquis for Afib 6. Advance directives - Full code
[2018-09-30] MEDS ORDERED: FUROSEMIDE 40 MG/4 ML INJECTABLE VIAL IVPUSH ONE (20:00)
[2018-09-30] MEDS ORDERED: FUROSEMIDE 40 MG/4 ML INJECTABLE VIAL ONE (20:16)
[2018-09-30 21:00] LABS: PH,URINE 6.5 (5.0-8.0); URINE APPEARANCE CLEAR; URINE BILIRUBIN NEGATIVE (NEGATIVE); URINE COLOR YELLOW; URINE GLUCOSE (UA) TRACE (NEGATIVE); URINE KETONE NEGATIVE (NEGATIVE); URINE LEUK ESTERASE NEGATIVE (NEGATIVE); URINE NITRITE NEGATIVE (NEGATIVE); URINE PROTEIN NEGATIVE (NEGATIVE)
[2018-09-30] MEDS ORDERED: ALBUTEROL SO4 0.083% IH SOL 2.5 MG/3 ML VIAL.NEB. NEB PRN (21:24)
[2018-09-30] MEDS ORDERED: dilTIAZem HCL 30 MG TABLET (FP) PO ONE (21:24)
[2018-09-30] MEDS ORDERED: PATIENT'S OWN MEDICATION (NON-FORMULARY) (Albuterol Sulfate [Proair Respiclick] 90 MCG) IH PRN (21:24)
--- NOTE | 2018-09-30 21:34 | HP ---
CHIEF COMPLAINT:shortness of breath, itching PCP:Dr. Cruz HISTORY OF PRESENT ILLNESS: Patient is an 83 year old male with significant past medical history of HTN, HLD , COPD, DM, AFib (on eliquis), PAD s/p LLE angioplasty and stent (2017), presented to the ED due to worsening SOB and bilateral lower extremity edema for 5 days. Patient reported he started experiencing worsening shortness of breath that started 5 days ago, for which she took his home dose of albuterol inhaler. Due to persistence of dyspnea, he saw his PCP 3 days ago for which he was given Decadron injection once. Since then, patient started experiencing generalized pruritus without improvement of his symptoms. Patient denies any fever, chills, headache, dizziness, chest pain, abdominal pain, diarrhea, urinary symptoms. ER course was notable for: (1)IV solumedrol 125mg x1, duonebs x1 (2) (3) Recent Travel:[place] PAST MEDICAL HISTORY: HTN HLD COPD DM AFib (on eliquis) PAD s/p LLE angioplasty and stent (2016) PAST SURGICAL HISTORY: LLE angioplasty and stent groin and umbilical hernia repair Social History: Smoking:previous smoker, quit >15 years ago Alcohol:denies Drugs: denies Family History:none Allergies azithromycin Allergy (Verified 09/30/18 14:23) HOME MEDICATIONS: Home Medications Medication Instructions Recorded Apixaban [Eliquis] 5 mg PO BID 09/14/16 Tamsulosin HCl 0.4 mg PO HS 09/14/16 Albuterol 0.083% Nebulizer Vane 1 amp NEB Q4H PRN #1 amp 01/15/17 [Ventolin 0.083% Nebulizer Soln -] Albuterol Sulfate [Proair 90 mcg IH Q4H PRN #1 aer.[email or web address] 01/15/17 Respiclick] Montelukast Na [Singulair -] 10 mg PO HS #30 tab.chew 01/15/17 Diltiazem Cd [Cardizem Cd -] 30 mg PO DAILY 06/06/17 Furosemide [Lasix] 20 mg PO DAILY 09/30/18 REVIEW OF SYSTEMS CONSTITUTIONAL: Absent: fever, chills, diaphoresis, generalized weakness, malaise, loss of appetite, weight change HEENT: Absent: rhinorrhea, nasal congestion, throat pain, throat swelling, difficulty swallowing, mouth swelling, ear pain, eye pain, visual changes CARDIOVASCULAR: peripheral edema Absent: chest pain, syncope, palpitations, irregular heart rate, lightheadedness RESPIRATORY: shortness of breath Absent: cough, dyspnea with exertion, orthopnea, wheezing, stridor, hemoptysis GASTROINTESTINAL: Absent: abdominal pain, abdominal distension, nausea, vomiting, diarrhea, constipation, melena, hematochezia GENITOURINARY: Absent: dysuria, frequency, urgency, hesitancy, hematuria, flank pain, genital pain MUSCULOSKELETAL: Absent: myalgia, arthralgia, joint swelling, back pain, neck pain SKIN: Absent: rash, itching, pallor HEMATOLOGIC/IMMUNOLOGIC: Absent: easy bleeding, easy bruising, lymphadenopathy, frequent infections ENDOCRINE: Absent: unexplained weight gain, unexplained weight loss, heat intolerance, cold intolerance NEUROLOGIC: Absent: headache, focal weakness or paresthesias, dizziness, unsteady gait, seizure, mental status changes, bladder or bowel incontinence PSYCHIATRIC: Absent: anxiety, depression, suicidal or homicidal ideation, hallucinations. PHYSICAL EXAMINATION Vital Signs - 24 hr 09/30/18 09/30/18 09/30/18 14:23 15:43 18:39 Temperature 97.8 F 97.8 F Pulse Rate 113 H Pulse Rate [ 98 H 105 H Right Radial] Respiratory 22 H 20 Rate Blood Pressure 140/57 L Blood Pressure 136/74 137/73 [Left Arm] O2 Sat by Pulse 95 94 L 95 Oximetry (%) 09/30/18 09/30/18 21:08 21:23 Temperature 99 F Pulse Rate Pulse Rate [ 102 H 118 H Right Radial] Respiratory 22 H Rate Blood Pressure Blood Pressure 137/78 [Left Arm] O2 Sat by Pulse 95 Oximetry (%) GENERAL: Awake, alert, and fully oriented, in no acute distress. HEAD: Normal with no signs of trauma. EYES:PERRLA, EOMI, sclera anicteric, conjunctiva clear. EARS, NOSE, THROAT: Moist mucous membranes. NECK: Normal range of motion, supple. LUNGS: Decreased breath sounds on bilateral bases. +Scattered wheezes HEART: Irregularly irregular, normal S1 and S2 without murmur, rub or gallop. ABDOMEN: Soft, nontender, not distended, normoactive bowel sounds. MUSCULOSKELETAL: Normal range of motion at all joints. No CVA tenderness. UPPER EXTREMITIES: 2+ pulses, warm, well-perfused. No peripheral edema. LOWER EXTREMITIES: 2+ pulses, warm, well-perfused. +1 peripheral edema. NEUROLOGICAL: Cranial nerves II-XII intact. Normal speech. Gait not observed. PSYCHIATRIC: Cooperative. Good eye contact. Appropriate mood and affect. SKIN: Warm, dry, normal turgor, +wound on the right anterior rodriguez Laboratory Results - last 24 hr 09/30/18 09/30/18 09/30/18 15:30 15:30 15:30 WBC 9.0 RBC 4.48 Hgb 14.6 Hct 43.2 MCV 96.5 H MCH 32.7 MCHC 33.9 RDW 14.3 Plt Count 167 D MPV 12.5 H Absolute Neuts (auto) 5.6 Neutrophils % 62.6 Lymphocytes % 17.9 D Monocytes % 10.4 H Eosinophils % 8.8 H D Basophils % 0.3 Nucleated RBC % 0 Sodium 140 Potassium 4.0 Chloride 103 Carbon Dioxide 29 Anion Gap 7 L BUN 22.2 H Creatinine 1.2 Est GFR (CKD-EPI)AfAm 64.42 Est GFR (CKD-EPI)NonAf 55.58 Random Glucose 96 Calcium 8.8 Total Bilirubin 0.6 AST 15 ALT 22 Alkaline Phosphatase 54 Creatine Kinase 115 Troponin I < 0.02 B-Natriuretic Peptide 417.8 Total Protein 6.7 Albumin 3.4 Urine Color Urine Appearance Urine pH Ur Specific [place] Urine Protein Urine Glucose (UA) Urine Ketones Urine Blood Urine Nitrite Urine Bilirubin Urine Urobilinogen Ur Leukocyte Esterase 09/30/18 20:10 WBC RBC Hgb Hct MCV MCH MCHC RDW Plt Count MPV Absolute Neuts (auto) Neutrophils % Lymphocytes % Monocytes % Eosinophils % Basophils % Nucleated RBC % Sodium Potassium Chloride Carbon Dioxide Anion Gap BUN Creatinine Est GFR (CKD-EPI)AfAm Est GFR (CKD-EPI)NonAf Random Glucose Calcium Total Bilirubin AST ALT Alkaline Phosphatase Creatine Kinase Troponin I B-Natriuretic Peptide Total Protein Albumin Urine Color Yellow Urine Appearance Clear Urine pH 6.5 Ur Specific [place] 1.010 Urine Protein Negative Urine Glucose (UA) Trace Urine Ketones Negative Urine Blood Negative Urine Nitrite Negative Urine Bilirubin Negative Urine Urobilinogen 1.0 Ur Leukocyte Esterase Negative ASSESSMENT/PLAN: Patient is an 83 year old male with significant past medical history of HTN, HLD , COPD, DM, AFib (on eliquis), PAD s/p LLE angioplasty and stent (2017), presented to the ED due to worsening SOB and bilateral lower extremity edema for 5 days. #Acute Respiratory distress 2/2 COPD exacerbation, ?new onset CHF -CXR reveals cardiomegaly, increased interstitial marking with blunted costophrenic angles -Echo in 2017 was reported to be normal -Will start IV solu-medrol 40mg q6h for COPD -Duonebs PRN -Continue Montelukast -Pulmonology (Dr. Guerrero) consulted. -Will give Lasix 40mg IV now and monitor UO -On home PO Lasix 20mg, will start Lasix 20mg IV -Echo -daily weights -I&O -Chest CT ordered -Cardiology (Dr. Cisneros) consulted. #Atrial fibrillation -EKG: AFib with no significant St-T wave changes, rate 120s -Will monitor on tele -Cardizem 30mg TID -Continue Eliquis 5mg BID #Hx of DM -As per patient, he was taken off medications since 2 years ago as he was told his diabetes was controlled. -will implement insulin sliding while admitted -BGM ACHS -HBA1c #Hx of PAD -s/p angioplasty in 2017 -will order ultrasound to rule out vascular disease given patient's new onset leg swelling #FEN -Not on any standing fluids -Electrolytes wnl, routine bmp monitoring -Diabetic/sodium restricted diet #Prophylaxis -On Eliquis 5mg BID #Disposition -full code -admit to tele Visit type - Emergency Visit Emergency Visit: Yes ED Registration Date: 09/30/18 Care time: The patient presented to the Emergency Department on the above date and was hospitalized for further evaluation of their emergent condition. - New Patient This patient is new to me today: Yes Date on this admission: 10/01/18 - Critical Care Critical Care patient: No ATTENDING PHYSICIAN STATEMENT I saw and evaluated the patient. I reviewed the resident's note and discussed the case with the resident. I agree with the resident's findings and plan as documented. SUBJECTIVE: OBJECTIVE: ASSESSMENT AND PLAN:
[2018-09-30] MEDS ORDERED: APIXABAN 5 MG TABLET PO SCH (22:00)
[2018-09-30] MEDS ORDERED: MONTELUKAST NA 10 MG TABLET PO SCH (22:00)
[2018-09-30] MEDS ORDERED: TAMSULOSIN HCL 0.4 MG CAP PO SCH (22:00)
[2018-09-30] MEDS: INSULIN SLIDING SCALE (NOVOLOG) 1 VIAL SQ SCH (23:48)
[2018-10-01 00:35] VITALS: BMI 30.5
[2018-10-01] MEDS: methylPREDNISolone NA SUCC 40 MG/1 ML VIAL IVPUSH SCH ×4 (02:19→21:18)
[2018-10-01] MEDS ORDERED: dilTIAZem HCL 30 MG TABLET (FP) PO SCH (06:00)
[2018-10-01] MEDS: INSULIN SLIDING SCALE (NOVOLOG) 1 VIAL SQ SCH ×4 (06:31→23:05)
[2018-10-01] MEDS: ALBUTEROL SO4 2.5/IPRATROPIUM 0.5 INH SOL 3 ML VIAL.NEB. NEB PRN ×2 (06:58)
[2018-10-01 07:42] LABS: HEMATOCRIT 41.2 % (35.4-49); HEMOGLOBIN 14.2 GM/dL (11.7-16.9); LYMPH % 7.6 % (8-40); MCH 33.2 pg (25.7-33.7); MCHC 34.4 g/dl (32.0-35.9); MEAN CELL VOLUME 96.5 fl (80-96); MEAN PLT VOLUME 12.2 fl (7.5-11.1); MONO % 0.8 % (3.8-10.2); NEUT % 91.6 % (42.8-82.8); PLATELET COUNT 166 K/MM3 (134-434); RBC 4.27 M/mm3 (4.00-5.60); RDW 13.9 % (11.9-15.9); WHITE BLOOD COUNT 5.5 K/mm3 (4.0-10.0)
[2018-10-01 08:32] LABS: ALBUMIN 3.3 g/dl (3.4-5.0); BILIRUBIN,TOTAL 0.7 mg/dL (0.2-1); BLOOD UREA NITROGEN 20.5 mg/dL (7-18); CALCIUM 8.9 mg/dL (8.5-10.1); CREATININE 1.2 mg/dL (0.55-1.3); MAGNESIUM 2.1 mg/dL (1.8-2.4); PHOSPHOROUS 3.4 mg/dL (2.5-4.9); POTASSIUM 4.3 mmol/L (3.5-5.1); TOT PROT 6.6 g/dl (6.4-8.2)
[2018-10-01] MEDS: FUROSEMIDE 40 MG/4 ML INJECTABLE VIAL IVPUSH SCH (09:47)
[2018-10-01] MEDS: APIXABAN 5 MG TABLET PO SCH ×2 (09:47→21:17)
[2018-10-01] MEDS ORDERED: FUROSEMIDE 40 MG/4 ML INJECTABLE VIAL IVPUSH SCH (10:00)
--- NOTE | 2018-10-01 11:33 | EKG ---
Test Reason : Blood Pressure : / mmHG Vent. Rate : 098 BPM Atrial Rate : 101 BPM P-R Int : 000 ms QRS Dur : 076 ms QT Int : 348 ms P-R-T Axes : 000 067 060 degrees QTc Int : 444 ms ATRIAL FIBRILLATION ABNORMAL ECG WHEN COMPARED WITH ECG OF 06-JUN-2017 21:52, NO SIGNIFICANT CHANGE WAS FOUND Confirmed by BARAK MENDEZ MD ([id number]) on 10/01/2018 11:33:15 AM Referred By: Confirmed By:BARAK MENDZE MD
[2018-10-01 11:56] LABS: ANISOCYTOSIS 1+; MACROCYTOSIS 0; PLATELET ESTIMATE NORMAL
--- NOTE | 2018-10-01 12:20 | PN ---
Progress Note (short form) - Note Progress Note: SUBJECTIVE: SOB improving. Complains of dry cough - no sputum/hemoptysis. No CP/ palps. No fever/chills. OBJECTIVE: Afebrile, Hemodynamically Stable. Last Vital Signs Temp Pulse Resp BP Pulse Ox 98.1 F 104 H 18 124/66 94 L 10/01/18 09:08 10/01/18 09:08 10/01/18 09:08 10/01/18 09:08 09/30/18 23:30 HEENT - Atramatic, Normocephalic. Heart - S1, S2, RRR Lungs - decreased air entry at bases Abdomen - soft, non-tender. Bowel Sounds normal. Extremities - LE edema+/venous stasis. Laboratory Results - last 24 hr 09/30/18 09/30/18 09/30/18 15:30 15:30 15:30 WBC 9.0 RBC 4.48 Hgb 14.6 Hct 43.2 MCV 96.5 H MCH 32.7 MCHC 33.9 RDW 14.3 Plt Count 167 D MPV 12.5 H Absolute Neuts (auto) 5.6 Neutrophils % 62.6 Neutrophils % (Manual) Band Neutrophils % Lymphocytes % 17.9 D Lymphocytes % (Manual) Monocytes % 10.4 H Monocytes % (Manual) Eosinophils % 8.8 H D Eosinophils % (Manual) Basophils % 0.3 Basophils % (Manual) Myelocytes % (Man) Promyelocytes % (Man) Blast Cells % (Manual) Nucleated RBC % 0 Metamyelocytes Hypochromia Platelet Estimate Polychromasia Poikilocytosis Anisocytosis Microcytosis Macrocytosis Sodium 140 Potassium 4.0 Chloride 103 Carbon Dioxide 29 Anion Gap 7 L BUN 22.2 H Creatinine 1.2 Est GFR (CKD-EPI)AfAm 64.42 Est GFR (CKD-EPI)NonAf 55.58 POC Glucometer Random Glucose 96 Hemoglobin A1c % Calcium 8.8 Phosphorus Magnesium Total Bilirubin 0.6 AST 15 ALT 22 Alkaline Phosphatase 54 Creatine Kinase 115 Troponin I < 0.02 B-Natriuretic Peptide 417.8 Total Protein 6.7 Albumin 3.4 Urine Color Urine Appearance Urine pH Ur Specific Anita Urine Protein Urine Glucose (UA) Urine Ketones Urine Blood Urine Nitrite Urine Bilirubin Urine Urobilinogen Ur Leukocyte Esterase 09/30/18 09/30/18 10/01/18 20:10 23:43 06:22 WBC RBC Hgb Hct MCV MCH MCHC RDW Plt Count MPV Absolute Neuts (auto) Neutrophils % Neutrophils % (Manual) Band Neutrophils % Lymphocytes % Lymphocytes % (Manual) Monocytes % Monocytes % (Manual) Eosinophils % Eosinophils % (Manual) Basophils % Basophils % (Manual) Myelocytes % (Man) Promyelocytes % (Man) Blast Cells % (Manual) Nucleated RBC % Metamyelocytes Hypochromia Platelet Estimate Polychromasia Poikilocytosis Anisocytosis Microcytosis Macrocytosis Sodium Potassium Chloride Carbon Dioxide Anion Gap BUN Creatinine Est GFR (CKD-EPI)AfAm Est GFR (CKD-EPI)NonAf POC Glucometer 222 155 Random Glucose Hemoglobin A1c % Calcium Phosphorus Magnesium Total Bilirubin AST ALT Alkaline Phosphatase Creatine Kinase Troponin I B-Natriuretic Peptide Total Protein Albumin Urine Color Yellow Urine Appearance Clear Urine pH 6.5 Ur Specific Anita 1.010 Urine Protein Negative Urine Glucose (UA) Trace Urine Ketones Negative Urine Blood Negative Urine Nitrite Negative Urine Bilirubin Negative Urine Urobilinogen 1.0 Ur Leukocyte Esterase Negative 10/01/18 10/01/18 10/01/18 06:55 06:55 06:55 WBC 5.5 RBC 4.27 Hgb 14.2 Hct 41.2 MCV 96.5 H MCH 33.2 MCHC 34.4 RDW 13.9 Plt Count 166 MPV 12.2 H Absolute Neuts (auto) 5.0 Neutrophils % 91.6 H D Neutrophils % (Manual) 94.9 H Band Neutrophils % 0.0 Lymphocytes % 7.6 L D Lymphocytes % (Manual) 4.1 L Monocytes % 0.8 L D Monocytes % (Manual) 1 L Eosinophils % 0.0 D Eosinophils % (Manual) 0.0 Basophils % 0.0 Basophils % (Manual) 0.0 Myelocytes % (Man) 0 Promyelocytes % (Man) 0 Blast Cells % (Manual) 0 Nucleated RBC % 0 Metamyelocytes 0 Hypochromia 0 Platelet Estimate Normal Polychromasia 0 Poikilocytosis 0 Anisocytosis 1+ Microcytosis 1+ Macrocytosis 0 Sodium 140 Potassium 4.3 Chloride 101 Carbon Dioxide 29 Anion Gap 9 BUN 20.5 H Creatinine 1.2 Est GFR (CKD-EPI)AfAm 64.42 Est GFR (CKD-EPI)NonAf 55.58 POC Glucometer Random Glucose 196 H Hemoglobin A1c % 6.7 H Calcium 8.9 Phosphorus 3.4 Magnesium 2.1 Total Bilirubin 0.7 AST 14 L ALT 21 Alkaline Phosphatase 51 Creatine Kinase Troponin I B-Natriuretic Peptide Total Protein 6.6 Albumin 3.3 L Urine Color Urine Appearance Urine pH Ur Specific Anita Urine Protein Urine Glucose (UA) Urine Ketones Urine Blood Urine Nitrite Urine Bilirubin Urine Urobilinogen Ur Leukocyte Esterase 10/01/18 11:41 WBC RBC Hgb Hct MCV MCH MCHC RDW Plt Count MPV Absolute Neuts (auto) Neutrophils % Neutrophils % (Manual) Band Neutrophils % Lymphocytes % Lymphocytes % (Manual) Monocytes % Monocytes % (Manual) Eosinophils % Eosinophils % (Manual) Basophils % Basophils % (Manual) Myelocytes % (Man) Promyelocytes % (Man) Blast Cells % (Manual) Nucleated RBC % Metamyelocytes Hypochromia Platelet Estimate Polychromasia Poikilocytosis Anisocytosis Microcytosis Macrocytosis Sodium Potassium Chloride Carbon Dioxide Anion Gap BUN Creatinine Est GFR (CKD-EPI)AfAm Est GFR (CKD-EPI)NonAf POC Glucometer 170 Random Glucose Hemoglobin A1c % Calcium Phosphorus Magnesium Total Bilirubin AST ALT Alkaline Phosphatase Creatine Kinase Troponin I B-Natriuretic Peptide Total Protein Albumin Urine Color Urine Appearance Urine pH Ur Specific Anita Urine Protein Urine Glucose (UA) Urine Ketones Urine Blood Urine Nitrite Urine Bilirubin Urine Urobilinogen Ur Leukocyte Esterase Current Medications Generic Name Dose Route Start Last Admin Trade Name Lucianq PRN Reason Stop Dose Admin Albuterol/Ipratropium 1 amp 09/30/18 21:26 10/01/18 06:58 Duoneb - NEB 1 amp Q6H PRN Administration SHORTNESS OF BREATH Apixaban 5 mg 10/01/18 10:00 10/01/18 09:47 Eliquis - PO 5 mg BID LARRY Administration Diltiazem HCl 30 mg 10/01/18 10:00 Cardizem Cd - PO DAILY LARRY Furosemide 20 mg 10/01/18 10:00 10/01/18 09:47 Lasix Injection - IVPUSH 20 mg DAILY LARRY Administration Insulin Aspart 1 vial 10/01/18 11:00 10/01/18 11:42 Novolog Vial Sliding Scale - SQ 2 units ACHS LARRY Administration Protocol Methylprednisolone Sodium Succinate 40 mg 10/01/18 03:00 10/01/18 09:47 Solu-Medrol - IVPUSH 40 mg Q6H-IV LARRY Administration Montelukast Sodium 10 mg 10/01/18 22:00 Singulair - PO HS LARRY Tamsulosin HCl 0.4 mg 10/01/18 22:00 Flomax - PO HS [facility] Home Medications Medication Instructions Recorded Apixaban [Eliquis] 5 mg PO BID 09/14/16 Tamsulosin HCl 0.4 mg PO HS 09/14/16 Albuterol 0.083% Nebulizer Vane 1 amp NEB Q4H PRN #1 amp 01/15/17 [Ventolin 0.083% Nebulizer Soln -] Albuterol Sulfate [Proair 90 mcg IH Q4H PRN #1 aer.[email or web address] 01/15/17 Respiclick] Montelukast Na [Singulair -] 10 mg PO HS #30 tab.chew 01/15/17 Diltiazem Cd [Cardizem Cd -] 30 mg PO DAILY 06/06/17 Furosemide [Lasix] 20 mg PO DAILY 09/30/18 ASSESSMENT/PLAN: 83 year old male with significant past medical history of HTN, HLD, COPD, DM 2, Atrial Fibrillation (on Eliquis), PAD s/p LLE angioplasty and stent (2016), presented with worsening SOB, dry cough, and bilateral lower extremity edema for 5 days. 1. Acute respiratory Distress secondary to: A. Acute Exacerbation COPD CXR - no clear infiltrate, bibasal atelectasis. Continue Duonebs, Solumedrol. Will add Azithromycin. SpO2 94% on RA, will monitor. CT Chest report pending. B. Acute Diastolic CHF decompensation Echo 2017 - normal EF. BNP/TropI wnl. Given IV Lasix diuresis. LEs more swollen than normal as per patient, will give another dose IV Lasix 20mg today and then revert to home dosing oral lasix 20mg. Cardiology consulted. Repeat Echo pending Daily weight, I/Os. Will monitor Renal Function 2. Atrial Fibrillation Continue Cardizem and Eliquis 3. DM 2 - Diet controlled. A1C 6.7 Will monitor FS and cover with sliding scale Novolog. 4. PAD s/p LLE angioplasty and stent (2017) - on Eliquis 5. HTN - Continue Diltiazem. 6. BPH - Continue Tamsulosin. DVT Px - On Eliquis Visit type - Emergency Visit Emergency Visit: Yes ED Registration Date: 09/30/18 Care time: The patient presented to the Emergency Department on the above date and was hospitalized for further evaluation of their emergent condition. - New Patient This patient is new to me today: Yes Date on this admission: 10/01/18 - Critical Care Critical Care patient: No - Discharge Referral Referred to [facility] No
[2018-10-01] MEDS ORDERED: AZITHROMYCIN IVPB 500 MG in DEXTROSE 5%-WATER - 250 ML IVPB SCH (12:45)
--- NOTE | 2018-10-01 14:05 | CON.PULM ---
Consult Consult Specialty:: PULM/CCM Referred by:: YOLA Reason for Consultation:: SOB - History of Present Illness Chief Complaint: SOB History of Present Illness: 83 F, HTN, HLD, COPD due to previous smoking (stopped 30 years ago), DM, AFib ( on eliquis), PAD s/p LLE angioplasty and stent (2017), no previous diagnosis of OSAS. 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 Admitted via the ER due to progressive worsening of SOB/TINAJERO and bilateral lower extremity edema for 5 days. Breathing did not improve with increase use of his albuterol. No travel history or sick contacts. No hemoptysis or night sweats. CT Chest: moderate centrilobular emphysema - History Source History Provided By: Patient Limitations to Obtaining History: No Limitations - Past Medical History Cardio/Vascular: Yes: AFIB Pulmonary: Yes: COPD - Alcohol/Substance Use Hx Alcohol Use: No - Smoking History Smoking history: Former smoker Have you smoked in the past 12 months: No If you are a former smoker, when did you quit?: 2016 Home Medications - Allergies Allergies/Adverse Reactions: Allergies Allergy/AdvReac Type Severity Reaction Status Date / Time azithromycin Allergy Verified 09/30/18 14:23 - Home Medications Home Medications: Ambulatory Orders Apixaban [Eliquis] 5 mg PO BID 09/14/16 Tamsulosin HCl 0.4 mg PO HS 09/14/16 Albuterol 0.083% Nebulizer Vane [Ventolin 0.083% Nebulizer Soln -] 1 amp NEB Q4H PRN #1 amp 01/15/17 Albuterol Sulfate [Proair Respiclick] 90 mcg IH Q4H PRN #1 aer.pow.ba 01/15/17 Montelukast Na [Singulair -] 10 mg PO HS #30 tab.chew 01/15/17 Diltiazem Cd [Cardizem Cd -] 30 mg PO DAILY 06/06/17 Furosemide [Lasix] 20 mg PO DAILY 09/30/18 Review of Systems - Review of Systems Constitutional: denies: Chills, Fever Eyes: reports: No Symptoms HENT: reports: No Symptoms Neck: reports: No Symptoms Cardiovascular: reports: Edema, Shortness of Breath. denies: Chest Pain, Palpitations Respiratory: reports: Cough, Orthopnea, Snoring, SOB, SOB on Exertion, Wheezing. denies: Hemoptysis Gastrointestinal: reports: No Symptoms Genitourinary: reports: No Symptoms Breasts: reports: No Symptoms Reported Musculoskeletal: reports: No Symptoms Integumentary: reports: No Symptoms Neurological: reports: No Symptoms Endocrine: reports: No Symptoms Hematology/Lymphatic: reports: No Symptoms Psychiatric: reports: No Symptoms Physical Exam Vital Sings: Vital Signs Temperature 98.1 F 10/01/18 09:08 Pulse Rate 104 H 10/01/18 09:08 Respiratory Rate 18 10/01/18 09:08 Blood Pressure 124/66 10/01/18 09:08 O2 Sat by Pulse Oximetry (%) 95 10/01/18 09:10 Constitutional: Yes: No Distress, Calm, Obese Eyes: Yes: Conjunctiva Clear, EOM Intact HENT: Yes: Atraumatic, Normocephalic Neck: Yes: Supple, Trachea Midline Cardiovascular: Yes: Regular Rate and Rhythm Respiratory: Yes: Cough, Diminished, Poor Air Entry, Rhonchi, SOB, SOB on Exertion, Tachypnea, Wheezes. No: Accessory Muscle Use, Rales, Stridor ...Inspection: Yes: WNL ...Clubbing: No Gastrointestinal: Yes: Normal Bowel Sounds, Soft, Abdomen, Obese Renal/: Yes: WNL Musculoskeletal: Yes: WNL Extremities: Yes: WNL Edema: Yes Peripheral Pulses WNL: Yes Integumentary: Yes: WNL Neurological: Yes: WNL, Alert, Oriented ...Motor Strength: WNL Psychiatric: Yes: WNL, Alert, Oriented Labs: CBC, BMP 10/01/18 06:55 10/01/18 06:55 Imaging - Results Chest X-ray: Report Reviewed, Image Reviewed Cat Scan: Report Reviewed, Image Reviewed Problem List - Problems (1) Acute bronchitis Code(s): J20.9 - ACUTE BRONCHITIS, UNSPECIFIED (2) Emphysema of lung Code(s): J43.9 - EMPHYSEMA, UNSPECIFIED (3) COPD exacerbation Code(s): J44.1 - CHRONIC OBSTRUCTIVE PULMONARY DISEASE W (ACUTE) EXACERBATION (4) SOB (shortness of breath) on exertion Code(s): R06.02 - SHORTNESS OF BREATH (5) Chronic a-fib Code(s): I48.2 - CHRONIC ATRIAL FIBRILLATION Assessment/Plan Medrol BD TX standing and PRN Would monitor off ABX Noted Singulair Should have sleep apnea screen as outpatient VTE prophylaxis Continued smoking abstinence discussed Noted Lasix ECHO to rule out Pulmonary HTN O2 as needed to maintain saturation Outpatient PFTs once stable Will follow Thank you. Dr Stover
[2018-10-01] MEDS ORDERED: ALBUTEROL SO4 0.083% IH SOL 2.5 MG/3 ML VIAL.NEB. NEB PRN (14:06)
[2018-10-01] MEDS: DOXYCYCLINE INJECTION 100 MG in DEXTROSE 5%-WATER - 100 ML IVPB SCH ×2 (14:36→22:59)
[2018-10-01] MEDS ORDERED: ARTIFICIAL TEARS (POLYVINYL ALCOHOL) OPTH DROPS OU PRN (16:01)
--- NOTE | 2018-10-01 17:31 | CON.CARD ---
Consult Consult Specialty:: cardiology Reason for Consultation:: SOB - History of Present Illness Chief Complaint: OOB in chair; mildly dyspneic, but able to hold a conversation. Family is at bedside. History of Present Illness: The patient is an 83 year old male, with a significant past medical history of HTN, NIDDM, COPD, atrial fibrillation (on Eliquis), PAD s/p LLE angioplasty and stent placement, who presents to the emergency department with, 3 days of shortness of breath and diffuse itchy, pruritic rash. Patient notes seeing his PCP 3 days ago for his shortness of breath at which time he received Decadron and was put on at home O2. He denies chest pain or palpitations. Allergies: Azithromycin Past surgical history: LLE angioplasty. Social history: Former smoker (+15 years ago) Primary Care Physician: Dr. Alessandro Cruz - History Source History Provided By: Patient, Medical Record Limitations to Obtaining History: No Limitations - Past Medical History Cardio/Vascular: Yes: AFIB Pulmonary: Yes: COPD - Alcohol/Substance Use Hx Alcohol Use: No - Smoking History Smoking history: Former smoker Have you smoked in the past 12 months: No If you are a former smoker, when did you quit?: 2016 Home Medications - Allergies Allergies/Adverse Reactions: Allergies Allergy/AdvReac Type Severity Reaction Status Date / Time azithromycin Allergy Verified 09/30/18 14:23 - Home Medications Home Medications: Ambulatory Orders Apixaban [Eliquis] 5 mg PO BID 09/14/16 Tamsulosin HCl 0.8 mg PO HS 09/14/16 Albuterol 0.083% Nebulizer Vane [Ventolin 0.083% Nebulizer Soln -] 1 amp NEB Q4H PRN #1 amp 01/15/17 Albuterol Sulfate [Proair Respiclick] 90 mcg IH Q4H PRN #1 aer.pow.ba 01/15/17 Montelukast Na [Singulair -] 10 mg PO HS #30 tab.chew 01/15/17 Diltiazem Cd [Cardizem Cd -] 60 mg PO DAILY 06/06/17 Furosemide [Lasix] 20 mg PO DAILY 09/30/18 Budesonide/Formeterol Fumarate [SYMBICORT 160/4.5mcg -] 2 inh PO BID 10/02/18 Ipratropium/Albuterol Sulfate [Combivent Respimat Inhal Wilkinson] 4 gm IH DAILY Lisinopril/Hydrochlorothiazide [Lisinopril-Hctz 20-25 mg Tab] 20 - 25 tab PO DAILY 10/02/18 Review of Systems - Review of Systems Constitutional: reports: Weakness Eyes: reports: No Symptoms HENT: reports: No Symptoms Neck: reports: No Symptoms Cardiovascular: reports: Shortness of Breath Respiratory: reports: SOB Gastrointestinal: reports: No Symptoms Genitourinary: reports: No Symptoms Breasts: reports: No Symptoms Reported Musculoskeletal: reports: Muscle Weakness Integumentary: reports: No Symptoms Neurological: reports: No Symptoms Endocrine: reports: No Symptoms Hematology/Lymphatic: reports: No Symptoms Psychiatric: reports: No Symptoms - Risk Factors Known Risk Factors: Yes: Age, Gender, Hypercholesterolemia, Hypertension, Physical Inactivity, Smoking Vital Signs: Vital Signs Temperature 98.2 F 10/01/18 14:05 Pulse Rate 99 H 10/01/18 14:05 Respiratory Rate 18 10/01/18 14:05 Blood Pressure 128/67 10/01/18 14:05 O2 Sat by Pulse Oximetry (%) 95 10/01/18 09:10 Constitutional: Yes: Calm Eyes: Yes: WNL HENT: Yes: WNL Neck: Yes: WNL Respiratory: Yes: Diminished, Rales, SOB Gastrointestinal: Yes: Soft Renal/: No: Anuria Cardiovascular: Yes: Pulse Irregular JVD: Yes Carotid Bruit: No PMI: Non-Displaced Heart Sounds: Yes: S1 (varies in intensity), S2 Murmur: Yes: Systolic Murmur, Grade 2 Musculoskeletal: Yes: Muscle Weakness Extremities: Yes: Cool Edema: Yes Edema: LLE: 1+, RLE: 1+ Peripheral Pulses WNL: Yes Integumentary: Yes: WNL Neurological: Yes: Alert, Oriented Psychiatric: Yes: WNL - Other Data Labs, Other Data: CBC, BMP 10/01/18 06:55 10/01/18 06:55 Abnormal Lab Results 10/03/18 10/03/18 06:20 06:20 MPV 11.9 H Absolute Neuts (auto) 8.7 H Neutrophils % 92.1 H Lymphocytes % 4.3 L D Monocytes % 3.6 L D BUN 37.0 H Random Glucose 155 H AST 14 L Imaging - Results Chest X-ray: Image Reviewed EKG: Image Reviewed (telemetry: AF; periods of RVR) Problem List - Problems (1) Acute on chronic diastolic CHF (congestive heart failure) Assessment/Plan: Pt 's family says furosemide 20 mg daily was not helping pt's bilateral leg swelling. He, however, does not elevate his legs at home, and is quite sedentary. Start IV furosemide--low dose. On diltiazem for HR, BP control. F/u ECHO (2016 and 03/2017 studies: normal LVEF). F/u BUn/Cr, electrolytes, daily weight, Is and Os. Elevate LEs. Encourage exercise when CHF is stable. Code(s): I50.33 - ACUTE ON CHRONIC DIASTOLIC (CONGESTIVE) HEART FAILURE (2) Emphysema of lung Assessment/Plan: f/u with global regulatory lead. Code(s): J43.9 - EMPHYSEMA, UNSPECIFIED (3) SOB (shortness of breath) on exertion Code(s): R06.02 - SHORTNESS OF BREATH (4) Chronic a-fib Assessment/Plan: On diltiazem CD 60 mg daily at home. On apixaban for anticoagulation. Code(s): I48.2 - CHRONIC ATRIAL FIBRILLATION (5) Memory loss Code(s): R41.3 - OTHER AMNESIA (6) Truncal obesity Assessment/Plan: Pt weighed 160 lbs in his 20s; he is now 195 lbs, most of it abdominal, which is likely exacerbating his CHF and COPD. Pt's family (son, granddaughter) say he has a "terrible" diet, with lots of junk food. They agree a nutritional consult would be of benefit. Code(s): E65 - LOCALIZED ADIPOSITY
[2018-10-01] MEDS: dilTIAZem HCL 30 MG TABLET (FP) PO SCH ×2 (17:56→23:05)
[2018-10-01] MEDS ORDERED: PT OWN MED DRAWER 7, Y5N ONE ×3 (21:08→22:57)
[2018-10-01] MEDS: TAMSULOSIN HCL 0.4 MG CAP PO SCH ×2 (21:17→23:07)
[2018-10-01] MEDS: ALBUTEROL SO4 2.5/IPRATROPIUM 0.5 INH SOL 3 ML VIAL.NEB. NEB SCH (21:38)
[2018-10-01] MEDS: MONTELUKAST NA 5 MG TAB.CHEW PO SCH (22:54)
[2018-10-02] MEDS: INSULIN SLIDING SCALE (NOVOLOG) 1 VIAL SQ SCH ×4 (06:21→21:20)
[2018-10-02] MEDS: dilTIAZem HCL 30 MG TABLET (FP) PO SCH ×3 (06:22→17:12)
[2018-10-02] MEDS: methylPREDNISolone NA SUCC 40 MG/1 ML VIAL IVPUSH SCH ×3 (06:22→17:12)
[2018-10-02] MEDS: ALBUTEROL SO4 2.5/IPRATROPIUM 0.5 INH SOL 3 ML VIAL.NEB. NEB SCH ×3 (07:30→20:41)
--- NOTE | 2018-10-02 08:30 | PN ---
Progress Note, Physician History of Present Illness: The patient is an 83 year old male, with a significant past medical history of HTN, NIDDM, COPD, atrial fibrillation (on Eliquis), PAD s/p LLE angioplasty and stent placement, who presents to the emergency department with, 3 days of shortness of breath and diffuse itchy, pruritic rash. Patient notes seeing his PCP 3 days ago for his shortness of breath at which time he received Decadron and was put on at home O2. He denies chest pain or palpitations. Allergies: Azithromycin Past surgical history: LLE angioplasty. Social history: Former smoker (+15 years ago) Primary Care Physician: Dr. Alessandro Crzu - Current Medication List Current Medications: Active Medications Albuterol Sulfate (Ventolin 0.083% Nebulizer Soln -) 1 amp NEB Q4H PRN PRN Reason: SHORT OF BREATH/WHEEZING Last Admin: 10/01/18 15:07 Dose: 1 amp Albuterol/Ipratropium (Duoneb -) 1 amp NEB RTID [facility] Last Admin: 10/02/18 07:30 Dose: 1 amp Apixaban (Eliquis -) 5 mg PO BID [facility] Last Admin: 10/01/18 21:17 Dose: 5 mg Artificial Tears (Artificial Tears) 1 drop OU Q12H PRN PRN Reason: DRY EYES Diltiazem HCl (Cardizem -) 30 mg PO Q6HPO [facility] Last Admin: 10/02/18 06:22 Dose: 30 mg Furosemide (Lasix Injection -) 20 mg IVPUSH DAILY [facility] Last Admin: 10/01/18 09:47 Dose: 20 mg Doxycycline Hyclate 100 mg/ (Dextrose) 100 mls @ 100 mls/hr IVPB BID [facility] Last Admin: 10/01/18 22:59 Dose: 100 mls/hr Insulin Aspart (Novolog Vial Sliding Scale -) 1 vial SQ ACHS [facility]; Protocol Last Admin: 10/02/18 06:21 Dose: Not Given Methylprednisolone Sodium Succinate (Solu-Medrol -) 40 mg IVPUSH Q6H-IV LARRY Last Admin: 10/02/18 06:22 Dose: 40 mg Montelukast Sodium (Singulair -) 10 mg PO HS [facility] Last Admin: 10/01/18 22:54 Dose: 10 mg Tamsulosin HCl (Flomax -) 0.4 mg PO HS [facility] Last Admin: 10/01/18 23:07 Dose: Not Given - Objective Vital Signs: Vital Signs Temperature 97.1 F L 10/02/18 06:00 Pulse Rate 87 10/02/18 06:00 Respiratory Rate 20 10/02/18 06:00 Blood Pressure 131/68 10/02/18 06:00 O2 Sat by Pulse Oximetry (%) 94 L 10/01/18 20:21 Eyes: Yes: WNL, Conjunctiva Clear, EOM Intact HENT: Yes: WNL, Atraumatic, Normocephalic Neck: Yes: WNL, Supple, Trachea Midline Cardiovascular: Yes: WNL, Regular Rate and Rhythm Respiratory: Yes: WNL, Regular, CTA Bilaterally Gastrointestinal: Yes: WNL, Normal Bowel Sounds Genitourinary: Yes: WNL Musculoskeletal: Yes: WNL Extremities: Yes: WNL Edema: No Integumentary: Yes: WNL Neurological: Yes: WNL, Alert, Oriented ...Motor Strength: WNL Psychiatric: Yes: WNL Labs: CBC, BMP 10/01/18 06:55 10/01/18 06:55 Assessment/Plan - Problems (1) Acute on chronic diastolic CHF (congestive heart failure) Assessment/Plan: Pt 's family says furosemide 20 mg daily was not helping pt's bilateral leg swelling. He, however, does not elevate his legs at home, and is quite sedentary. Start IV furosemide--low dose. On diltiazem for HR, BP control. F/u ECHO (2017 study: normal LVEF). F/u BUn/Cr, electrolytes, daily weight, Is and Os. Elevate LEs. Encourage exercise when CHF is stable. Code(s): I50.33 - ACUTE ON CHRONIC DIASTOLIC (CONGESTIVE) HEART FAILURE (2) Emphysema of lung Assessment/Plan: f/u with social scientist. Code(s): J43.9 - EMPHYSEMA, UNSPECIFIED (3) SOB (shortness of breath) on exertion Code(s): R06.02 - SHORTNESS OF BREATH (4) Chronic a-fib Assessment/Plan: On diltiazem CD 60 mg daily at home. On apixaban for anticoagulation. Code(s): I48.2 - CHRONIC ATRIAL FIBRILLATION (5) Memory loss Code(s): R41.3 - OTHER AMNESIA (6) Truncal obesity Assessment/Plan: Pt weighed 160 lbs in his 20s; he is now 195 lbs, most of it abdominal, which is likely exacerbating his CHF and COPD. Pt's family (son, granddaughter) say he has a "terrible" diet, with lots of junk food. They agree a nutritional consult would be of benefit. Code(s): E65 - LOCALIZED ADIPOSITY
[2018-10-02] MEDS ORDERED: PT OWN MED DRAWER 7, Y5N ONE ×2 (08:42→20:54)
[2018-10-02] MEDS ORDERED: guaiFENesin 200 MG/10 ML 10 ML UNIT-DOSE CUPS PO PRN (10:11)
[2018-10-02] MEDS: APIXABAN 5 MG TABLET PO SCH ×2 (10:40→21:20)
[2018-10-02] MEDS: FUROSEMIDE 40 MG/4 ML INJECTABLE VIAL IVPUSH SCH (10:41)
[2018-10-02] MEDS: DOXYCYCLINE INJECTION 100 MG in DEXTROSE 5%-WATER - 100 ML IVPB SCH (10:42)
[2018-10-02] MEDS ORDERED: FUROSEMIDE 40 MG/4 ML INJECTABLE VIAL IVPUSH SCH (11:25)
--- NOTE | 2018-10-02 11:33 | PN ---
Teaching Attending Note Name of Resident: Fernando Phipps ATTENDING PHYSICIAN STATEMENT I saw and evaluated the patient. I reviewed the resident's note and discussed the case with the resident. I agree with the resident's findings and plan as documented. SUBJECTIVE: SOB improving. Ongoing dry cough - no sputum/hemoptysis. No CP/ palps. No fever/chills. OBJECTIVE: Afebrile, Hemodynamically Stable. SpO2 94% RA Last Vital Signs Temp Pulse Resp BP Pulse Ox 97.1 F L 93 H 16 127/63 94 L 10/02/18 06:00 10/02/18 08:38 10/02/18 08:38 10/02/18 08:38 10/02/18 08:55 Heart - S1, S2, RRR Lungs - decreased air entry at bases with bilateral wheeze. Abdomen - soft, non-tender. Bowel Sounds normal. Extremities - LE edema+/venous stasis. Laboratory Results - last 24 hr 10/01/18 10/01/18 10/01/18 06:55 11:41 16:58 Neutrophils % (Manual) 94.9 H Band Neutrophils % 0.0 Lymphocytes % (Manual) 4.1 L Monocytes % (Manual) 1 L Eosinophils % (Manual) 0.0 Basophils % (Manual) 0.0 Myelocytes % (Man) 0 Promyelocytes % (Man) 0 Blast Cells % (Manual) 0 Metamyelocytes 0 Hypochromia 0 Platelet Estimate Normal Polychromasia 0 Poikilocytosis 0 Anisocytosis 1+ Microcytosis 1+ Macrocytosis 0 POC Glucometer 170 181 Triglycerides Cholesterol Total LDL Cholesterol HDL Cholesterol TSH 10/01/18 10/01/18 18:50 22:53 Neutrophils % (Manual) Band Neutrophils % Lymphocytes % (Manual) Monocytes % (Manual) Eosinophils % (Manual) Basophils % (Manual) Myelocytes % (Man) Promyelocytes % (Man) Blast Cells % (Manual) Metamyelocytes Hypochromia Platelet Estimate Polychromasia Poikilocytosis Anisocytosis Microcytosis Macrocytosis POC Glucometer 148 Triglycerides 82 Cholesterol 160 Total LDL Cholesterol 96 HDL Cholesterol 54 TSH 0.47 Current Medications Generic Name Dose Route Start Last Admin Trade Name Freq PRN Reason Stop Dose Admin Albuterol Sulfate 1 amp 10/01/18 14:06 10/01/18 15:07 Ventolin 0.083% Nebulizer Soln - NEB 1 amp Q4H PRN Administration SHORT OF BREATH/WHEEZING Albuterol/Ipratropium 1 amp 10/01/18 20:00 10/02/18 07:30 Duoneb - NEB 1 amp RTID LARRY Administration Apixaban 5 mg 10/01/18 10:00 10/02/18 10:40 Eliquis - PO 5 mg BID LARRY Administration Artificial Tears 1 drop 10/01/18 16:01 Artificial Tears OU Q12H PRN DRY EYES Diltiazem HCl 30 mg 10/01/18 18:00 10/02/18 11:23 Cardizem - PO 30 mg Q6HPO LARRY Administration Furosemide 40 mg 10/02/18 11:25 Lasix Injection - IVPUSH DAILY LARRY Furosemide 20 mg 10/02/18 11:25 Lasix Injection - IVPUSH 10/02/18 11:26 ONCE ONE Guaifenesin 10 ml 10/02/18 10:11 10/02/18 11:23 Robitussin - PO 10 ml Q6H PRN Administration COUGH Doxycycline Hyclate 100 mg/ 100 mls @ 100 mls/hr 10/01/18 12:43 10/02/18 10: 42 Dextrose IVPB 100 mls/hr BID LARRY Administration Insulin Aspart 1 vial 10/01/18 11:00 10/02/18 11:21 Novolog Vial Sliding Scale - SQ 4 units ACHS LARRY Administration Protocol Methylprednisolone Sodium Succinate 40 mg 10/01/18 03:00 10/02/18 10:40 Solu-Medrol - IVPUSH 40 mg Q6H-IV LARRY Administration Montelukast Sodium 10 mg 10/01/18 22:00 10/01/18 22:54 Singulair - PO 10 mg HS LARRY Administration Tamsulosin HCl 0.4 mg 10/01/18 22:00 10/01/18 23:07 Flomax - PO Not Given HS [facility] Home Medications Medication Instructions Recorded Apixaban [Eliquis] 5 mg PO BID 09/14/16 Tamsulosin HCl 0.4 mg PO HS 09/14/16 Albuterol 0.083% Nebulizer Vane 1 amp NEB Q4H PRN #1 amp 01/15/17 [Ventolin 0.083% Nebulizer Soln -] Albuterol Sulfate [Proair 90 mcg IH Q4H PRN #1 aer.[email or web address] 01/15/17 Respiclick] Montelukast Na [Singulair -] 10 mg PO HS #30 tab.chew 01/15/17 Diltiazem Cd [Cardizem Cd -] 30 mg PO DAILY 06/06/17 Furosemide [Lasix] 20 mg PO DAILY 09/30/18 ASSESSMENT/PLAN: 83 year old male with significant past medical history of HTN, HLD, COPD, DM 2, Atrial Fibrillation (on Eliquis), PAD s/p LLE angioplasty and stent (2016), presented with worsening SOB, dry cough, and bilateral lower extremity edema for 5 days. 1. Acute respiratory Distress secondary to: A. Acute Exacerbation COPD CXR - no clear infiltrate, bibasal atelectasis. CT Chest - moderate centrilobar emphysema/COPD. Continue Duonebs, Solumedrol (will start to taper). Monitor off Abx as per Pulm. SpO2 94% on RA, will monitor. Incentive Spirometry for atelectasis B. Acute Diastolic CHF decompensation Echo 2017 - normal EF. BNP/TropI wnl. Lasix dose increased to 40mg IVP due to ongoing pitting LE edema and no significant change in weight since admission. Cardiology following. Repeat Echo pending Daily weight, I/Os. Will monitor Renal Function 2. Atrial Fibrillation Continue Cardizem and Eliquis 3. DM 2 - Diet controlled. A1C 6.7 Will monitor FS and cover with sliding scale Novolog. 4. PAD s/p LLE angioplasty and stent (2017) - on Eliquis 5. HTN - Continue Diltiazem. 6. BPH - Continue Tamsulosin. 7. Bilateral Upper Pole Renal Cysts - for out-patient urology referral. DVT Px - On Eliquis
[2018-10-02] MEDS ORDERED: FUROSEMIDE 40 MG/4 ML INJECTABLE VIAL IVPUSH ONE (12:00)
--- NOTE | 2018-10-02 12:00 | PN ---
Progress Note, Physician History of Present Illness: pulmonary alert,oob-chair,less dyspneic - Current Medication List Current Medications: Active Medications Albuterol Sulfate (Ventolin 0.083% Nebulizer Soln -) 1 amp NEB Q4H PRN PRN Reason: SHORT OF BREATH/WHEEZING Last Admin: 10/01/18 15:07 Dose: 1 amp Albuterol/Ipratropium (Duoneb -) 1 amp NEB RTID [facility] Last Admin: 10/02/18 07:30 Dose: 1 amp Apixaban (Eliquis -) 5 mg PO BID [facility] Last Admin: 10/02/18 10:40 Dose: 5 mg Artificial Tears (Artificial Tears) 1 drop OU Q12H PRN PRN Reason: DRY EYES Diltiazem HCl (Cardizem -) 30 mg PO Q6HPO [facility] Last Admin: 10/02/18 11:23 Dose: 30 mg Furosemide (Lasix Injection -) 40 mg IVPUSH DAILY [facility] Furosemide (Lasix Injection -) 20 mg IVPUSH ONCE ONE Stop: 10/02/18 12:01 Guaifenesin (Robitussin -) 10 ml PO Q6H PRN PRN Reason: COUGH Last Admin: 10/02/18 11:23 Dose: 10 ml Insulin Aspart (Novolog Vial Sliding Scale -) 1 vial SQ [facility]; Protocol Last Admin: 10/02/18 11:21 Dose: 4 units Methylprednisolone Sodium Succinate (Solu-Medrol -) 40 mg IVPUSH Q8H-IV [facility] Montelukast Sodium (Singulair -) 10 mg PO HS [facility] Last Admin: 10/01/18 22:54 Dose: 10 mg Tamsulosin HCl (Flomax -) 0.4 mg PO HS [facility] Last Admin: 10/01/18 23:07 Dose: Not Given - Objective Vital Signs: Vital Signs Temperature 97.1 F L 10/02/18 06:00 Pulse Rate 93 H 10/02/18 08:38 Respiratory Rate 16 10/02/18 08:38 Blood Pressure 127/63 10/02/18 08:38 O2 Sat by Pulse Oximetry (%) 94 L 10/02/18 08:55 Constitutional: Yes: Well Nourished, Calm Eyes: Yes: WNL HENT: Yes: WNL Neck: Yes: WNL Cardiovascular: Yes: Pulse Irregular, S1, S2 Respiratory: Yes: Rales (few bibasilar rales) Gastrointestinal: Yes: Normal Bowel Sounds, Soft Extremities: Yes: WNL Edema: Yes Labs: CBC, BMP 10/01/18 06:55 Assessment/Plan Problem List - Problems (1) Acute bronchitis Code(s): J20.9 - ACUTE BRONCHITIS, UNSPECIFIED (2) Emphysema of lung Code(s): J43.9 - EMPHYSEMA, UNSPECIFIED (3) COPD exacerbation Code(s): J44.1 - CHRONIC OBSTRUCTIVE PULMONARY DISEASE W (ACUTE) EXACERBATION (4) SOB (shortness of breath) on exertion Code(s): R06.02 - SHORTNESS OF BREATH (5) Chronic a-fib Code(s): I48.2 - CHRONIC ATRIAL FIBRILLATION Assessment/Plan Medrol BD TX standing and PRN Singulair Lasix Should have sleep apnea screen as outpatient VTE prophylaxis ECHO O2 Outpatient PFTs DR YEBOAH
--- NOTE | 2018-10-02 14:07 | PN ---
Physical Exam: SUBJECTIVE: 83 y/o M w PMH HTN, HLD, COPD, DM, A fib. on Eliquis, PAD w LLE stent, and diastolic CHF with PEF whom presented to the hospital w c/o SOB and LE swelling, seen sitting in a chair at bedside today. Pt only c/o cough today. He says the cough is dry, with no hemoptysis, presenting in the day and night, and has no associated/alleviating/exacerbating factors. He reports that his SOB and leg swelling are improving. He reports no h/o weight loss, night sweats, fevers or chills. Pt denies CP, visions change, dizziness, NVD. OBJECTIVE: Vital Signs Temp Pulse Resp BP Pulse Ox 97.1 F L 93 H 16 127/63 94 L 10/02/18 06:00 10/02/18 08:38 10/02/18 08:38 10/02/18 08:38 10/02/18 08:55 GENERAL: The patient is awake, alert, and fully oriented, in no acute distress. HEAD: Normal with no signs of trauma. EYES: LUCIE, EOMI, sclera anicteric, conjunctiva clear. No ptosis. ENT: Ears normal, nares patent, oropharynx clear without exudates, moist mucous membranes. NECK: Trachea midline, full range of motion, supple. LUNGS: Decreased air entry at bases w BL upper lobe wheeze. Breath sounds equal , no crackles, no accessory muscle use. HEART: Regular rate and rhythm, S1, S2 without murmur, rub or gallop. ABDOMEN: Soft, nontender, nondistended, normoactive bowel sounds, no guarding, no rebound, no hepatosplenomegaly, no masses. EXTREMITIES: 1+ pitting edema BL LE, POS venous stasis. 2+ pulses, warm, well- perfused, no edema. NEUROLOGICAL: Cranial nerves III through XII grossly intact. Normal speech, gait not observed. PSYCH: Normal mood, normal affect. SKIN: Warm, dry, normal turgor, no rashes or lesions noted Laboratory Results - last 24 hr 10/01/18 10/01/18 10/01/18 16:58 18:50 22:53 POC Glucometer 181 148 Triglycerides 82 Cholesterol 160 Total LDL Cholesterol 96 HDL Cholesterol 54 TSH 0.47 08/19/19 11:15 POC Glucometer 207 Triglycerides Cholesterol Total LDL Cholesterol HDL Cholesterol TSH Active Medications Albuterol Sulfate (Ventolin 0.083% Nebulizer Soln -) 1 amp NEB Q4H PRN PRN Reason: SHORT OF BREATH/WHEEZING Last Admin: 10/01/18 15:07 Dose: 1 amp Albuterol/Ipratropium (Duoneb -) 1 amp NEB RTID [facility] Last Admin: 10/02/18 13:38 Dose: 1 amp Apixaban (Eliquis -) 5 mg PO BID [facility] Last Admin: 10/02/18 10:40 Dose: 5 mg Artificial Tears (Artificial Tears) 1 drop OU Q12H PRN PRN Reason: DRY EYES Diltiazem HCl (Cardizem -) 30 mg PO Q6HPO [facility] Last Admin: 10/02/18 11:23 Dose: 30 mg Furosemide (Lasix Injection -) 40 mg IVPUSH DAILY [facility] Guaifenesin (Robitussin -) 10 ml PO Q6H PRN PRN Reason: COUGH Last Admin: 10/02/18 11:23 Dose: 10 ml Insulin Aspart (Novolog Vial Sliding Scale -) 1 vial SQ ACHS [facility]; Protocol Last Admin: 10/02/18 11:21 Dose: 4 units Methylprednisolone Sodium Succinate (Solu-Medrol -) 40 mg IVPUSH Q8H-IV [facility]ARR[facility] Montelukast Sodium (Singulair -) 10 mg PO HS [facility] Last Admin: 10/01/18 22:54 Dose: 10 mg Tamsulosin HCl (Flomax -) 0.4 mg PO HS [facility] Last Admin: 10/01/18 23:07 Dose: Not Given ASSESSMENT/PLAN: 83 y/o M w PMH HTN, HLD, COPD, DM, A fib. on Eliquis, PAD w LLE stent, and diastolic CHF with PEF whom presented to the hospital w c/o SOB and LE swelling , admitted for respiratory distress 2/2 COPD and acute diastolic CHF w PEF. Pt receiving solumedrol and duoneb treatment along with lasix. # Acute Respiratory Distress 2/2 acute COPD exacerbation - CXR demonstrates no clear infiltrates but POS for bibasal atelectasis. - CT chest demonstrates moderate centrilobar emphysema consistent w COPD. - Cont. duonebs, solumedrol for one more day & start taper tomorrow - SpO2 94% on RA, will monitor. - Incentive spirometry for atelectasis - Pulm on board - Monitor off abx as per pulm. - Recommended sleep apnea screen as out-pt - o2 as needed to maintain saturation - Outpatient PFTs once stable - Echo to rule out Pulmonary HTN # Acute Respiratory Distress 2/2 acute on chronic diastolic CHF-PEF decompensation - Echo 2017 - normal EF. - BNP/TropI wnl. - Lasix dose increased to 40mg IVP due to ongoing pitting LE edema - Cardiology on board - Repeat Echo pending - Daily weight, I/Os. -Cont. to monitor renal function # Atrial fibrillation - Cont. Cardizem 30mg TID - Cont. Eliquis 5mg BID # DM - BGM 148 today - Diet controlled - HbA1C 6.7 - Monitor FS and cover with ISS # PAD - S/p LLE angioplasty and stent (2017) - Cont. Eliquis # HTN - Cont. Diltiazem # BPH - Cont. tamsulosin # BL Upper pole renal cysts - Seen on imaging - Asymptomatic - F/u out-pt - Urology referral on d/c # F/E/N -No standing fluids -Cont. to monitor electrolytes -Diabetic/sodium restricted diet # DVT prophylaxis - On Eliquis # Disposition - Full code Fernando Phipps MD Visit type - Emergency Visit Emergency Visit: No - New Patient This patient is new to me today: No - Critical Care Critical Care patient: No ATTENDING PHYSICIAN STATEMENT I saw and evaluated the patient. I reviewed the resident's note and discussed the case with the resident. I agree with the resident's findings and plan as documented. SUBJECTIVE: OBJECTIVE: ASSESSMENT AND PLAN:
[2018-10-02] MEDS: MONTELUKAST NA 5 MG TAB.CHEW PO SCH (21:19)
[2018-10-02] MEDS: TAMSULOSIN HCL 0.4 MG CAP PO SCH ×2 (21:20→21:25)
[2018-10-03] MEDS: dilTIAZem HCL 30 MG TABLET (FP) PO SCH ×3 (00:53→06:36)
[2018-10-03] MEDS: methylPREDNISolone NA SUCC 40 MG/1 ML VIAL IVPUSH SCH ×2 (01:26→10:27)
[2018-10-03] MEDS: INSULIN SLIDING SCALE (NOVOLOG) 1 VIAL SQ SCH ×4 (06:36→23:06)
[2018-10-03 07:07] LABS: HEMATOCRIT 42.7 % (35.4-49); HEMOGLOBIN 14.8 GM/dL (11.7-16.9); LYMPH % 4.3 % (8-40); MCH 33.3 pg (25.7-33.7); MCHC 34.7 g/dl (32.0-35.9); MEAN CELL VOLUME 95.9 fl (80-96); MEAN PLT VOLUME 11.9 fl (7.5-11.1); MONO % 3.6 % (3.8-10.2); NEUT % 92.1 % (42.8-82.8); PLATELET COUNT 189 K/MM3 (134-434); RBC 4.45 M/mm3 (4.00-5.60); RDW 13.9 % (11.9-15.9); WHITE BLOOD COUNT 9.5 K/mm3 (4.0-10.0)
[2018-10-03] MEDS: ALBUTEROL SO4 2.5/IPRATROPIUM 0.5 INH SOL 3 ML VIAL.NEB. NEB SCH ×3 (07:25→20:26)
[2018-10-03 07:46] LABS: ALBUMIN 3.4 g/dl (3.4-5.0); BILIRUBIN,TOTAL 0.9 mg/dL (0.2-1); CALCIUM 8.7 mg/dL (8.5-10.1); CREATININE 1.2 mg/dL (0.55-1.3); MAGNESIUM 2.3 mg/dL (1.8-2.4); PHOSPHOROUS 4.1 mg/dL (2.5-4.9); POTASSIUM 3.7 mmol/L (3.5-5.1); TOT PROT 6.8 g/dl (6.4-8.2)
[2018-10-03] MEDS: APIXABAN 5 MG TABLET PO SCH ×2 (09:11→23:05)
--- NOTE | 2018-10-03 10:48 | PN ---
Progress Note, Physician Chief Complaint: Pt A&Ox3; OOB in chair; feels better; no chest pain or palpitations; not tachypneic History of Present Illness: The patient is an 83 year old male, with a significant past medical history of HTN, NIDDM, COPD, atrial fibrillation (on Eliquis), PAD s/p LLE angioplasty and stent placement, who presents to the emergency department with, 3 days of shortness of breath and diffuse itchy, pruritic rash. Patient notes seeing his PCP 3 days ago for his shortness of breath at which time he received Decadron and was put on at home O2. He denies chest pain or palpitations. Allergies: Azithromycin Past surgical history: LLE angioplasty. Social history: Former smoker (+15 years ago) Primary Care Physician: Dr. Alessandro Cruz - Current Medication List Current Medications: Active Medications Albuterol Sulfate (Ventolin 0.083% Nebulizer Soln -) 1 amp NEB Q4H PRN PRN Reason: SHORT OF BREATH/WHEEZING Last Admin: 10/01/18 15:07 Dose: 1 amp Albuterol/Ipratropium (Duoneb -) 1 amp NEB RTID [facility] Last Admin: 10/03/18 07:25 Dose: 1 amp Apixaban (Eliquis -) 5 mg PO BID [facility] Last Admin: 10/03/18 09:11 Dose: 5 mg Artificial Tears (Artificial Tears) 1 drop OU Q12H PRN PRN Reason: DRY EYES Diltiazem HCl (Cardizem -) 30 mg PO Q6HPO [facility] Last Admin: 10/03/18 06:36 Dose: 30 mg Furosemide (Lasix Injection -) 40 mg IVPUSH DAILY [facility] Last Admin: 10/03/18 10:27 Dose: 40 mg Guaifenesin (Robitussin -) 10 ml PO Q6H PRN PRN Reason: COUGH Last Admin: 10/02/18 11:23 Dose: 10 ml Insulin Aspart (Novolog Vial Sliding Scale -) 1 vial SQ [facility]; Protocol Last Admin: 10/03/18 06:36 Dose: 2 units Methylprednisolone Sodium Succinate (Solu-Medrol -) 40 mg IVPUSH Q8H-IV [facility] Last Admin: 10/03/18 10:27 Dose: 40 mg Montelukast Sodium (Singulair -) 10 mg PO HS [facility] Tamsulosin HCl (Flomax -) 0.4 mg PO HS [facility] Last Admin: 10/02/18 21:25 Dose: Not Given - Objective Vital Signs: Vital Signs Temperature 97.6 F 10/03/18 08:17 Pulse Rate 89 10/03/18 08:17 Respiratory Rate 19 10/03/18 08:17 Blood Pressure 119/52 L 10/03/18 08:17 O2 Sat by Pulse Oximetry (%) 95 10/02/18 21:00 Labs: CBC, BMP 10/03/18 06:20 10/03/18 06:20 Problem List - Problems (1) Acute on chronic diastolic CHF (congestive heart failure) Assessment/Plan: On furosemide; will change to PO. Continue diltiazem for HR and BP control. Code(s): I50.33 - ACUTE ON CHRONIC DIASTOLIC (CONGESTIVE) HEART FAILURE (2) Emphysema of lung Assessment/Plan: Plan on changing to PO steroids. Code(s): J43.9 - EMPHYSEMA, UNSPECIFIED (3) SOB (shortness of breath) on exertion Code(s): R06.02 - SHORTNESS OF BREATH (4) Chronic a-fib Assessment/Plan: On diltiazem CD 60 mg daily at home. On apixaban for anticoagulation. Code(s): I48.2 - CHRONIC ATRIAL FIBRILLATION (5) Memory loss Code(s): R41.3 - OTHER AMNESIA (6) Truncal obesity Code(s): E65 - LOCALIZED ADIPOSITY
--- NOTE | 2018-10-03 14:20 | PN ---
Progress Note, Physician History of Present Illness: pulmonary alert,feeling better,dyspnea improving. pt desaturates with ambulation will require home o2 - Current Medication List Current Medications: Active Medications Albuterol Sulfate (Ventolin 0.083% Nebulizer Soln -) 1 amp NEB Q4H PRN PRN Reason: SHORT OF BREATH/WHEEZING Last Admin: 10/01/18 15:07 Dose: 1 amp Albuterol/Ipratropium (Duoneb -) 1 amp NEB RTID [facility] Last Admin: 10/03/18 07:25 Dose: 1 amp Apixaban (Eliquis -) 5 mg PO BID [facility] Last Admin: 10/03/18 09:11 Dose: 5 mg Artificial Tears (Artificial Tears) 1 drop OU Q12H PRN PRN Reason: DRY EYES Diltiazem HCl (Cardizem Cd -) 120 mg PO DAILY [facility] Last Admin: 10/03/18 12:08 Dose: 120 mg Furosemide (Lasix Injection -) 40 mg IVPUSH DAILY [facility] Last Admin: 10/03/18 10:27 Dose: 40 mg Guaifenesin (Robitussin -) 10 ml PO Q6H PRN PRN Reason: COUGH Last Admin: 10/02/18 11:23 Dose: 10 ml Insulin Aspart (Novolog Vial Sliding Scale -) 1 vial SQ [facility]; Protocol Last Admin: 10/03/18 12:08 Dose: 4 units Methylprednisolone Sodium Succinate (Solu-Medrol -) 40 mg IVPUSH Q8H-IV [facility] Last Admin: 10/03/18 10:27 Dose: 40 mg Montelukast Sodium (Singulair -) 10 mg PO [facility] Tamsulosin HCl (Flomax -) 0.4 mg PO HS [facility] Last Admin: 10/02/18 21:25 Dose: Not Given - Objective Vital Signs: Vital Signs Temperature 97.6 F 10/03/18 08:17 Pulse Rate 89 10/03/18 08:17 Respiratory Rate 19 10/03/18 08:17 Blood Pressure 119/52 L 10/03/18 08:17 O2 Sat by Pulse Oximetry (%) 96 10/03/18 09:00 Constitutional: Yes: Well Nourished, Calm Eyes: Yes: WNL HENT: Yes: WNL Neck: Yes: WNL Cardiovascular: Yes: Pulse Irregular, S1, S2 Respiratory: Yes: Diminished Gastrointestinal: Yes: Normal Bowel Sounds, Soft Extremities: Yes: WNL Edema: No Labs: CBC, BMP 10/03/18 06:20 10/03/18 06:20 Assessment/Plan Problem List - Problems (1) Acute bronchitis Code(s): J20.9 - ACUTE BRONCHITIS, UNSPECIFIED (2) Emphysema of lung Code(s): J43.9 - EMPHYSEMA, UNSPECIFIED (3) COPD exacerbation Code(s): J44.1 - CHRONIC OBSTRUCTIVE PULMONARY DISEASE W (ACUTE) EXACERBATION (4) SOB (shortness of breath) on exertion Code(s): R06.02 - SHORTNESS OF BREATH (5) Chronic a-fib Code(s): I48.2 - CHRONIC ATRIAL FIBRILLATION Assessment/Plan Medrol taper, start prednisone 60mg po in am BD TX standing and PRN Singulair Lasix Should have sleep apnea screen as outpatient VTE prophylaxis O2 Outpatient PFTs DR YEBOAH
[2018-10-03 15:16] LABS: ANISOCYTOSIS 0; MACROCYTOSIS 0; PLATELET ESTIMATE NORMAL
--- NOTE | 2018-10-03 16:42 | PN ---
Teaching Attending Note Name of Resident: Fernando Phipps ATTENDING PHYSICIAN STATEMENT I saw and evaluated the patient. I reviewed the resident's note and discussed the case with the resident. I agree with the resident's findings and plan as documented. SUBJECTIVE:feeling much better today. denies Cp, SOB, fever, chills, N/V/C/D OBJECTIVE: Last Vital Signs Temp Pulse Resp BP Pulse Ox 98.7 F 89 20 118/83 95 10/03/18 13:10 10/03/18 14:44 10/03/18 13:10 10/03/18 13:10 10/03/18 14:44 Intake & Output 09/30/18 10/01/18 10/02/18 10/03/18 23:59 23:59 23:59 23:59 Intake Total 130 1130 340 360 Output Total 100 482 Balance 30 648 340 360 Weight 195 lb 3.2 oz 195 lb 12.8 oz 196 lb 4.8 oz 184 lb General NAD CV S1 S2 + no murmur/rub/gallop Lungs scattered wheezing no crackles ASSESSMENT AND PLAN: 83 year old male with significant past medical history of HTN, HLD, COPD, DM 2, Atrial Fibrillation (on Eliquis), PAD s/p LLE angioplasty and stent (2016), presented with worsening SOB, dry cough, and bilateral lower extremity edema for 5 days. 1. Acute respiratory Distress secondary to COPD exacerbation. clinically improved. will decreased solumedrol to BID. check if qualifies for home O2. will need pulm outpatient follow up for PFT. pulnmonary on board 2. Acute diastolic CHF- clinically euvolemic. will switch lasix to po. doppler neg for DVT. cardio on board 3. Afib- rate controlled. on eliquis 4. DM 2 - Diet controlled. A1C 6.7. iss and BGM 5. PAD s/p LLE angioplasty and stent (2017) - on Eliquis 6. HTN - Continue Diltiazem. 7. BPH - Continue Tamsulosin. 8. Bilateral Upper Pole Renal Cysts - for out-patient urology referral. 9. DVT Px - On Eliquis 10. plan for discharge tomorrow if can switch to prednisone in am
--- NOTE | 2018-10-03 16:55 | PN ---
Physical Exam: SUBJECTIVE: 83 y/o M w PMH HTN, HLD, COPD, DM, A fib. on Eliquis, PAD w LLE stent, and diastolic CHF with PEF whom presented to the hospital w c/o SOB and LE swelling, seen sitting in a chair at bedside today ROCÍO 3. He reports that his SOB and leg swelling are improving and states he is at his baseline. Pt no longer c/o cough. He reports no h/o weight loss, night sweats, fevers or chills. Pt denies CP, visions change, dizziness, NVD. OBJECTIVE: Vital Signs Temp Pulse Resp BP Pulse Ox 98.7 F 89 20 118/83 95 10/03/18 13:10 10/03/18 14:44 10/03/18 13:10 10/03/18 13:10 10/03/18 14:44 GENERAL: The patient is awake, alert, and fully oriented, in no acute distress. HEAD: Normal with no signs of trauma. EYES: LUCIE, EOMI, sclera anicteric, conjunctiva clear. No ptosis. ENT: Ears normal, nares patent, oropharynx clear without exudates, moist mucous membranes. NECK: Trachea midline, full range of motion, supple. LUNGS: Decreased air entry at bases w BL upper lobe wheeze. Breath sounds equal , no crackles, no accessory muscle use. HEART: Regular rate and rhythm, S1, S2 without murmur, rub or gallop. ABDOMEN: Soft, nontender, nondistended, normoactive bowel sounds, no guarding, no rebound, no hepatosplenomegaly, no masses. EXTREMITIES: 1+ pitting edema BL LE, POS venous stasis. 2+ pulses, warm, well- perfused, no edema. NEUROLOGICAL: Cranial nerves III through XII grossly intact. Normal speech, gait not observed. PSYCH: Normal mood, normal affect. SKIN: Warm, dry, normal turgor, no rashes or lesions noted Laboratory Results - last 24 hr 10/02/18 10/02/18 10/03/18 17:09 21:19 06:20 WBC 9.5 RBC 4.45 Hgb 14.8 Hct 42.7 MCV 95.9 MCH 33.3 MCHC 34.7 RDW 13.9 Plt Count 189 MPV 11.9 H Absolute Neuts (auto) 8.7 H Neutrophils % 92.1 H Neutrophils % (Manual) 94.0 H Band Neutrophils % 0.0 Lymphocytes % 4.3 L D Lymphocytes % (Manual) 3.0 L D Monocytes % 3.6 L D Monocytes % (Manual) 3 L D Eosinophils % 0.0 Eosinophils % (Manual) 0.0 Basophils % 0.0 Basophils % (Manual) 0.0 Myelocytes % (Man) 0 Promyelocytes % (Man) 0 Blast Cells % (Manual) 0 Nucleated RBC % 0 Metamyelocytes 0 Hypochromia 0 Platelet Estimate Normal Platelet Comment Present Polychromasia 0 Poikilocytosis 0 Anisocytosis 0 Microcytosis 0 Macrocytosis 0 Sodium Potassium Chloride Carbon Dioxide Anion Gap BUN Creatinine Est GFR (CKD-EPI)AfAm Est GFR (CKD-EPI)NonAf POC Glucometer 239 151 Random Glucose Calcium Phosphorus Magnesium Total Bilirubin AST ALT Alkaline Phosphatase Total Protein Albumin 10/03/18 10/03/18 10/03/18 06:20 06:20 12:06 WBC RBC Hgb Hct MCV MCH MCHC RDW Plt Count MPV Absolute Neuts (auto) Neutrophils % Neutrophils % (Manual) Band Neutrophils % Lymphocytes % Lymphocytes % (Manual) Monocytes % Monocytes % (Manual) Eosinophils % Eosinophils % (Manual) Basophils % Basophils % (Manual) Myelocytes % (Man) Promyelocytes % (Man) Blast Cells % (Manual) Nucleated RBC % Metamyelocytes Hypochromia Platelet Estimate Platelet Comment Polychromasia Poikilocytosis Anisocytosis Microcytosis Macrocytosis Sodium 139 Potassium 3.7 Chloride 102 Carbon Dioxide 29 Anion Gap 8 BUN 37.0 H Creatinine 1.2 Est GFR (CKD-EPI)AfAm 64.42 Est GFR (CKD-EPI)NonAf 55.58 POC Glucometer 167 220 Random Glucose 155 H Calcium 8.7 Phosphorus 4.1 Magnesium 2.3 Total Bilirubin 0.9 AST 14 L ALT 26 Alkaline Phosphatase 49 Total Protein 6.8 Albumin 3.4 Active Medications Albuterol Sulfate (Ventolin 0.083% Nebulizer Soln -) 1 amp NEB Q4H PRN PRN Reason: SHORT OF BREATH/WHEEZING Last Admin: 10/01/18 15:07 Dose: 1 amp Albuterol/Ipratropium (Duoneb -) 1 amp NEB RTID [facility] Last Admin: 10/03/18 14:45 Dose: 1 amp Apixaban (Eliquis -) 5 mg PO BID [facility] Last Admin: 10/03/18 09:11 Dose: 5 mg Artificial Tears (Artificial Tears) 1 drop OU Q12H PRN PRN Reason: DRY EYES Diltiazem HCl (Cardizem Cd -) 120 mg PO DAILY [facility] Last Admin: 10/03/18 12:08 Dose: 120 mg Furosemide (Lasix Injection -) 40 mg IVPUSH DAILY [facility] Last Admin: 10/03/18 10:27 Dose: 40 mg Guaifenesin (Robitussin -) 10 ml PO Q6H PRN PRN Reason: COUGH Last Admin: 10/02/18 11:23 Dose: 10 ml Insulin Aspart (Novolog Vial Sliding Scale -) 1 vial SQ ACHS [facility]; Protocol Last Admin: 10/03/18 12:08 Dose: 4 units Methylprednisolone Sodium Succinate (Solu-Medrol -) 40 mg IVPUSH BID [facility] Stop: 10/03/18 23:00 Montelukast Sodium (Singulair -) 10 mg PO HS [facility] Prednisone (Deltasone -) 60 mg PO DAILY [facility] Tamsulosin HCl (Flomax -) 0.4 mg PO HS [facility] Last Admin: 10/02/18 21:25 Dose: Not Given ASSESSMENT/PLAN: 83 y/o M w PMH HTN, HLD, COPD, DM, A fib. on Eliquis, PAD w LLE stent, and diastolic CHF with PEF whom presented to the hospital w c/o SOB and LE swelling , admitted for respiratory distress 2/2 COPD and acute diastolic CHF w PEF. Pt receiving last solumedrol today and will receive prednisone 60 mg tomorrow with taper on d/c. Also receiving duoneb treatment along with lasix. # Acute Respiratory Distress 2/2 acute COPD exacerbation - CXR demonstrates no clear infiltrates but POS for bibasal atelectasis. - CT chest demonstrates moderate centrilobar emphysema consistent w COPD. - Cont. duonebs, solumedrol for one more day & start taper tomorrow starting w prednisone 60 mg - SpO2 94% on RA, will monitor. - Pre/Post demonstrates desat to 88% w exercise off o2 - Home o2 recommended - Incentive spirometry for atelectasis - Pulm on board (Dr. Guerrero) - Recommended sleep apnea screen as out-pt - Outpatient PFTs once stable - Echo to rule out Pulmonary HTN # Acute Respiratory Distress 2/2 acute on chronic diastolic CHF-PEF decompensation - Echo 2017 - normal EF. - BNP/TropI wnl. - Return to Lasix home dose of 20 mg PO - Cardiology on board (Dr. Cisneros) - Repeat Echo pending - Daily weight, I/Os. -Cont. to monitor renal function # Atrial fibrillation - Cont. Cardizem 120mg QD - Cont. Eliquis 5mg BID # DM - BGM 167 today - Diet controlled - HbA1C 6.7 - Monitor FS and cover with ISS # PAD - S/p LLE angioplasty and stent (2017) - Cont. Eliquis # HTN - Cont. Diltiazem # BPH - Cont. tamsulosin # BL Upper pole renal cysts - Seen on imaging - Asymptomatic - F/u out-pt - Urology referral on d/c # F/E/N -No standing fluids -Cont. to monitor electrolytes -Diabetic/sodium restricted diet # DVT prophylaxis - On Eliquis # Disposition - Full code Fernando Phipps MD ATTENDING PHYSICIAN STATEMENT I saw and evaluated the patient. I reviewed the resident's note and discussed the case with the resident. I agree with the resident's findings and plan as documented. SUBJECTIVE: OBJECTIVE: ASSESSMENT AND PLAN:
[2018-10-03] MEDS ORDERED: methylPREDNISolone NA SUCC 40 MG/1 ML VIAL IVPUSH SCH (22:00)
[2018-10-03] MEDS ORDERED: MONTELUKAST NA 10 MG TABLET PO SCH (22:00)
[2018-10-03] MEDS: TAMSULOSIN HCL 0.4 MG CAP PO SCH ×2 (23:05→23:16)
[2018-10-04] MEDS: INSULIN SLIDING SCALE (NOVOLOG) 1 VIAL SQ SCH (06:01)
[2018-10-04] MEDS: ALBUTEROL SO4 2.5/IPRATROPIUM 0.5 INH SOL 3 ML VIAL.NEB. NEB SCH (07:56)
[2018-10-04 08:49] VITALS: BP 119/58; PULSE 77; TEMP 97.9
--- NOTE | 2018-10-04 09:01 | PN ---
Teaching Attending Note Name of Resident: Fernando Phipps ATTENDING PHYSICIAN STATEMENT I saw and evaluated the patient. I reviewed the resident's note and discussed the case with the resident. I agree with the resident's findings and plan as documented. SUBJECTIVE:asymptomatic. deneis Cp, SOB, fever, chills, cough, N/V/C/D OBJECTIVE: Last Vital Signs Temp Pulse Resp BP Pulse Ox 97.9 F 77 19 119/58 L 95 10/04/18 08:48 10/04/18 08:48 10/04/18 08:48 10/04/18 08:48 10/03/18 21:00 General NAD CV S1 S2 + no murmur/rub/gallop Lungs CTA B/L no crackles/wheezing Extremities trace pitting edema ASSESSMENT AND PLAN: 83 year old male with significant past medical history of HTN, HLD, COPD, DM 2, Atrial Fibrillation (on Eliquis), PAD s/p LLE angioplasty and stent (2016), presented with worsening SOB, dry cough, and bilateral lower extremity edema for 5 days. 1. Acute respiratory Distress secondary to COPD exacerbation. clinically improved. switch to pred 60mg with taper. will need home O2 on exertion. outpatient PFT and polysomography. pulmonary on board 2. Acute diastolic CHF- clinically euvolemic. lasix po. daily weigths. 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 doppler neg for DVT. cardio on board 3. Afib- rate controlled. on eliquis 4. DM 2 - Diet controlled. A1C 6.7. iss and BGM 5. PAD s/p LLE angioplasty and stent (2016) - on Eliquis 6. HTN - Continue Diltiazem. 7. BPH - Continue Tamsulosin. 8. Bilateral Upper Pole Renal Cysts - for out-patient urology referral. 9. DVT Px - On Eliquis 10. D/C home
[2018-10-04] MEDS: APIXABAN 5 MG TABLET PO SCH (09:19)
--- NOTE | 2018-10-04 09:48 | PN ---
Progress Note, Physician History of Present Illness: The patient is an 83 year old male, with a significant past medical history of HTN, NIDDM, COPD, atrial fibrillation (on Eliquis), PAD s/p LLE angioplasty and stent placement, who presents to the emergency department with, 3 days of shortness of breath and diffuse itchy, pruritic rash. Patient notes seeing his PCP 3 days ago for his shortness of breath at which time he received Decadron and was put on at home O2. He denies chest pain or palpitations. Allergies: Azithromycin Past surgical history: LLE angioplasty. Social history: Former smoker (+15 years ago) Primary Care Physician: Dr. Alessandro Cruz - Current Medication List Current Medications: Active Medications Albuterol Sulfate (Ventolin 0.083% Nebulizer Soln -) 1 amp NEB Q4H PRN PRN Reason: SHORT OF BREATH/WHEEZING Last Admin: 10/01/18 15:07 Dose: 1 amp Albuterol/Ipratropium (Duoneb -) 1 amp NEB RTID [facility] Last Admin: 10/04/18 07:56 Dose: 1 amp Apixaban (Eliquis -) 5 mg PO BID [facility] Last Admin: 10/04/18 09:19 Dose: 5 mg Artificial Tears (Artificial Tears) 1 drop OU Q12H PRN PRN Reason: DRY EYES Diltiazem HCl (Cardizem Cd -) 120 mg PO DAILY [facility] Last Admin: 10/04/18 09:18 Dose: 120 mg Furosemide (Lasix -) 20 mg PO DAILY [facility] Last Admin: 10/04/18 09:18 Dose: 20 mg Guaifenesin (Robitussin -) 10 ml PO Q6H PRN PRN Reason: COUGH Last Admin: 10/02/18 11:23 Dose: 10 ml Insulin Aspart (Novolog Vial Sliding Scale -) 1 vial SQ [facility]; Protocol Last Admin: 10/04/18 06:01 Dose: 2 units Montelukast Sodium (Singulair -) 10 mg PO [facility] Last Admin: 10/03/18 23:05 Dose: 10 mg Prednisone (Deltasone -) 60 mg PO DAILY [facility] Last Admin: 10/04/18 09:19 Dose: 60 mg Tamsulosin HCl (Flomax -) 0.4 mg PO [facility] Last Admin: 10/03/18 23:16 Dose: Not Given - Objective Vital Signs: Vital Signs Temperature 97.9 F 10/04/18 08:48 Pulse Rate 77 10/04/18 08:48 Respiratory Rate 19 10/04/18 08:48 Blood Pressure 119/58 L 10/04/18 08:48 O2 Sat by Pulse Oximetry (%) 95 10/03/18 21:00 Eyes: Yes: WNL, Conjunctiva Clear, EOM Intact HENT: Yes: WNL, Atraumatic, Normocephalic Neck: Yes: WNL, Supple, Trachea Midline Cardiovascular: Yes: WNL, Regular Rate and Rhythm Respiratory: Yes: WNL, Regular, CTA Bilaterally Gastrointestinal: Yes: WNL, Normal Bowel Sounds Genitourinary: Yes: WNL Musculoskeletal: Yes: WNL Extremities: Yes: WNL Edema: No Integumentary: Yes: WNL Neurological: Yes: WNL, Alert, Oriented ...Motor Strength: WNL Psychiatric: Yes: WNL Labs: CBC, BMP 10/03/18 06:20 10/03/18 06:20 Assessment/Plan - Problems (1) Acute on chronic diastolic CHF (congestive heart failure) Assessment/Plan: On furosemide; will change to PO. Continue diltiazem for HR and BP control. Code(s): I50.33 - ACUTE ON CHRONIC DIASTOLIC (CONGESTIVE) HEART FAILURE (2) Emphysema of lung Assessment/Plan: Plan on changing to PO steroids. Code(s): J43.9 - EMPHYSEMA, UNSPECIFIED (3) SOB (shortness of breath) on exertion Code(s): R06.02 - SHORTNESS OF BREATH (4) Chronic a-fib Assessment/Plan: On diltiazem CD 60 mg daily at home. On apixaban for anticoagulation. Code(s): I48.2 - CHRONIC ATRIAL FIBRILLATION (5) Memory loss Code(s): R41.3 - OTHER AMNESIA (6) Truncal obesity Code(s): E65 - LOCALIZED ADIPOSITY
[2018-10-04] MEDS ORDERED: FUROSEMIDE 20 MG TABLET (FP) PO SCH (10:00)
[2018-10-04] MEDS ORDERED: predniSONE 20 MG TABLET (UD) PO SCH (10:00)
--- NOTE | 2018-10-04 11:54 | PN ---
Progress Note, Physician History of Present Illness: PULMONARY ALERT,OOB-CHAIR,COMFORTABLE,-RESP DISTRESS - Current Medication List Current Medications: Active Medications Albuterol Sulfate (Ventolin 0.083% Nebulizer Soln -) 1 amp NEB Q4H PRN PRN Reason: SHORT OF BREATH/WHEEZING Last Admin: 10/01/18 15:07 Dose: 1 amp Albuterol/Ipratropium (Duoneb -) 1 amp NEB RTID [facility] Last Admin: 10/04/18 07:56 Dose: 1 amp Apixaban (Eliquis -) 5 mg PO BID [facility] Last Admin: 10/04/18 09:19 Dose: 5 mg Artificial Tears (Artificial Tears) 1 drop OU Q12H PRN PRN Reason: DRY EYES Diltiazem HCl (Cardizem Cd -) 120 mg PO DAILY [facility] Last Admin: 10/04/18 09:18 Dose: 120 mg Furosemide (Lasix -) 20 mg PO DAILY [facility] Last Admin: 10/04/18 09:18 Dose: 20 mg Guaifenesin (Robitussin -) 10 ml PO Q6H PRN PRN Reason: COUGH Last Admin: 10/02/18 11:23 Dose: 10 ml Insulin Aspart (Novolog Vial Sliding Scale -) 1 vial SQ [facility]; Protocol Last Admin: 10/04/18 06:01 Dose: 2 units Montelukast Sodium (Singulair -) 10 mg PO [facility] Last Admin: 10/03/18 23:05 Dose: 10 mg Prednisone (Deltasone -) 60 mg PO DAILY [facility] Last Admin: 10/04/18 09:19 Dose: 60 mg Tamsulosin HCl (Flomax -) 0.4 mg PO [facility] Last Admin: 10/03/18 23:16 Dose: Not Given - Objective Vital Signs: Vital Signs Temperature 97.9 F 10/04/18 08:48 Pulse Rate 77 10/04/18 08:48 Respiratory Rate 19 10/04/18 08:48 Blood Pressure 119/58 L 10/04/18 08:48 O2 Sat by Pulse Oximetry (%) 96 10/04/18 09:00 Constitutional: Yes: Well Nourished, Calm Eyes: Yes: WNL HENT: Yes: WNL Neck: Yes: WNL Cardiovascular: Yes: Pulse Irregular, S1, S2 Respiratory: Yes: Diminished Gastrointestinal: Yes: Normal Bowel Sounds, Soft Extremities: Yes: WNL Edema: No Labs: Assessment/Plan Problem List - Problems (1) Acute bronchitis Code(s): J20.9 - ACUTE BRONCHITIS, UNSPECIFIED (2) Emphysema of lung Code(s): J43.9 - EMPHYSEMA, UNSPECIFIED (3) COPD exacerbation Code(s): J44.1 - CHRONIC OBSTRUCTIVE PULMONARY DISEASE W (ACUTE) EXACERBATION (4) SOB (shortness of breath) on exertion Code(s): R06.02 - SHORTNESS OF BREATH (5) Chronic a-fib Code(s): I48.2 - CHRONIC ATRIAL FIBRILLATION Assessment/Plan prednisone 60mg po daily with taper Symbicort 160//4.5 2 puffs bid spiriva 2 puffs daily Singulair Lasix sleep studies outpatient VTE prophylaxis Home O2 Outpatient PFTs outpatient pulmonary rehab DR YEBOAH
--- NOTE | 2018-10-04 13:37 | ECHO ---
Name: CB MELLO Exam:Adult Echocardiogram Study Date: 10/02/2018 09:35 AM Age: 83 yrs Reason For Study: chf Height: 64 in Weight: 195 lb BSA: 1.9 m2 MMode/2D Measurements & Calculations IVSd: 0.89 cm Ao root diam: 3.8 cm LVIDd: 4.5 cm LA dimension: 3.8 cm LVIDs: 3.0 cm ACS: 1.0 cm LVPWd: 0.93 cm IVSs: 1.3 cm LVPWs: 1.3 cm EDV(Teich): 93.4 ml ESV(Teich): 35.7 ml Doppler Measurements & Calculations MV A max kiesha: 137.0 cm/sec Ao V2 max: 137.0 cm/sec Ao max P.5 mmHg Ao V2 mean: 89.9 cm/sec Ao mean P.8 mmHg Ao V2 VTI: 26.9 cm LV V1 max P.5 mmHg PI end-d kiesha: 114.5 cm/sec LV V1 mean P.4 mmHg LV V1 max: 105.3 cm/sec LV V1 mean: 71.8 cm/sec LV V1 VTI: 20.3 cm Left Ventricle The left ventricular size, thickness and function are normal. Ejection Fraction = 60-65%. Right Ventricle The right ventricle is grossly normal size. The right ventricular systolic function is grossly normal . Atria Normal left and right atrial size and function. Mitral Valve The mitral valve is not well visualized. There is mild mitral annular calcification. There is trace m itral regurgitation. Tricuspid Valve The tricuspid valve is not well visualized. There is trace tricuspid regurgitation. There was insuffi cient TR detected to calculate RV systolic pressure. Aortic Valve The aortic valve is not well visualized. There is mild aortic sclerosis.;. No aortic regurgitation is present. Pulmonic Valve The pulmonic valve is not well visualized. Great Vessels Mild aortic root dilatation. Interpretation Summary There is no comparison study available. The left ventricular size, thickness and function are normal Mild aortic root dilatation. Ejection Fraction = 60-65%. There is trace tricuspid regurgitation. The right ventricle is grossly normal size. The right ventricular systolic function is grossly normal. There is trace mitral regurgitation. Cheng Rudd MD 10/04/2018 01:36 PM
--- NOTE | 2018-10-04 15:54 | DS ---
Physical Exam: SUBJECTIVE: 83 y/o M w PMH HTN, HLD, COPD, DM, A fib. on Eliquis, PAD w LLE stent, and diastolic CHF with PEF whom presented to the hospital w c/o SOB and LE swelling, seen sitting in a chair at bedside today. He reports that his SOB and leg swelling are improving and states he is at his baseline. Pt no longer c/ o cough. He reports no h/o weight loss, night sweats, fevers or chills. Pt denies CP, visions change, dizziness, NVD. OBJECTIVE: Vital Signs Temp Pulse Resp BP Pulse Ox 97.9 F 77 19 119/58 L 96 10/04/18 08:48 10/04/18 08:48 10/04/18 08:48 10/04/18 08:48 10/04/18 09:00 PHYSICAL EXAM GENERAL: The patient is awake, alert, and fully oriented, in no acute distress. Preferred language is Mauritanian. HEAD: Normal with no signs of trauma. EYES: LUCIE, EOMI, sclera anicteric, conjunctiva clear. No ptosis. ENT: Ears normal, nares patent, oropharynx clear without exudates, moist mucous membranes. NECK: Trachea midline, full range of motion, supple. LUNGS: Decreased air entry at bases w BL upper lobe wheeze. Breath sounds equal , no crackles, no accessory muscle use. HEART: Regular rate and rhythm, S1, S2 without murmur, rub or gallop. ABDOMEN: Obese, soft, nontender, nondistended, normoactive bowel sounds, no guarding, no rebound, no hepatosplenomegaly, no masses. EXTREMITIES: 1+ pitting edema BL LE, POS venous stasis. 2+ pulses, warm, well- perfused, no edema. NEUROLOGICAL: Cranial nerves III through XII grossly intact. Normal speech, gait not observed. PSYCH: Normal mood, normal affect. SKIN: Warm, dry, normal turgor, no rashes or lesions noted LABS Laboratory Results - last 24 hr 10/03/18 10/03/18 10/04/18 17:16 23:04 05:47 POC Glucometer 205 172 174 HOSPITAL COURSE: Date of Admission:09/30/18 83 y/o M Date of Discharge: 10/04/18 Fernando Phipps MD Discharge Summary Reason For Visit: SHORT OF BREATH ON EXERTION Condition: Improved - Instructions Diet, Activity, Other Instructions: YOUR VISIT You were brought to the hospital because you were experiencing shortness of breath and increased leg swelling. This was likely caused by your COPD and heart failure. You were given inhalers and started on steroids for your COPD and water pills for your heart failure. Your heart rate was also noted to be high, so your Cardizem dose was increased. You will also be sent home on oxygen, please use this as needed. You need to wear this whenever your walking or not at rest. Use 3 liters as needed. Your goal pulse oximeter reading (one can be purchased at any [employer]) goal is >90% . you do NOT need to wear this at rest. Follow up with pulmonary for how long you will need to utilize this. MEDICATIONS Please take note of the following changes to your medications: 1. Please take Cardizem 120mg daily. 2. Continue Lasix 20mg daily. 3. Please take the Prednisone as instructed below: Prednisone 60mg daily for 2 more days starting tomorrow (10/05-10/06) Then Prednisone 50mg daily for 3 days (10/07-10/09) Then Prednisone 40mg daily for 3 days (10/10-10/12) Then Prednisone 30mg daily for 3 days (10/13-10/15) Then Prednisone 20mg daily for 3 days (10/16-10/18) Then Prednisone 10mg daily for 3 days (10/19-10/21) Please continue to take your other home medications as prescribed. - Eliquis 5 mg by mouth twice a day - Symbicort 2 puffs by mouth twice a day - Combivent 4 gm inhaled every day - Lisinopril/hydrochlorthiazide 20-25 tablet by mouth every day - Tamsulosin 0.8 mg by mouth every night - Montelukast 10 mg by mouth every night - Albuterol 90 mcg/one puff as needed ADDITIONAL CARE Please make an appointment with your primary care doctor, Dr. Cruz, 1 week from today. Please make an appointment to see the lung doctor, Dr. 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 Cisneros) within 2 weeks. Please make an appointment with a urologist for finding of kidney cysts, found on this visit. ADDITIONAL INFORMATION Please call 911 or come to the emergency department if you feel short of breath , chest pains, unusual bleeding, headache, loss of alertness, vomiting, diarrhea , or any other alarming symptoms. Referrals: Trevor Guerrero MD [Staff Physician] - Allen Palacios MD., MD [Staff Physician] - Will Cisneros MD [Staff Physician] - Alessandro Cruz MD [Primary Care Provider] - Disposition: HOME - Home Medications Comprehensive Discharge Medication List: Ambulatory Orders Apixaban [Eliquis] 5 mg PO BID 09/14/16 Tamsulosin HCl 0.8 mg PO HS 09/14/16 Albuterol Sulfate [Proair Respiclick] 90 mcg IH Q4H PRN #1 aer.[email or web address] 01/15/17 Montelukast Na [Singulair -] 10 mg PO HS #30 tab.chew 01/15/17 Budesonide/Formeterol Fumarate [SYMBICORT 160/4.5mcg -] 2 inh PO BID 10/02/18 Ipratropium/Albuterol Sulfate [Combivent Respimat 20-100 Mcg] 4 gm IH DAILY Lisinopril/Hydrochlorothiazide [Lisinopril-Hctz 20-25 mg Tab] 20 - 25 tab PO DAILY 10/02/18 Albuterol 0.083% Nebulizer Vane [Ventolin 0.083% Nebulizer Soln -] 1 amp NEB Q4H PRN amp 10/04/18 Albuterol 2.5/Ipratropium 0.5 [Duoneb -] 1 amp NEB RTID amp 10/04/18 Diltiazem Cd [Cardizem Cd -] 120 mg PO DAILY #30 cap.cd.24h 10/04/18 Furosemide [Lasix -] 20 mg PO DAILY #30 tablet 10/04/18 Polyvinyl Alcohol [Artificial Tears] 1 drop OU Q12H PRN drops 10/04/18 Prednisone See Taper PO DAILY #57 tablet 10/04/18 - Discharge Referral Referred to [facility] Med [facility] No ATTENDING PHYSICIAN STATEMENT I saw and evaluated the patient. I reviewed the resident's note and discussed the case with the resident. I agree with the resident's findings and plan as documented. SUBJECTIVE: OBJECTIVE: ASSESSMENT AND PLAN:
== END 2018-10-04 13:37 | disposition home or self-care (01) | DRG 190 ==
LOC: JER 14:11 → JERBED 18:43 → J4S 23:41
PROVIDERS: ADMIT Internal Medicine; ATTEND Internal Medicine
PROC: 3E0F7GC Introduction of Other Therapeutic Substance into Respiratory Tract, Via Natural or Artificial Opening (ICD-10-PCS; principal; 2018-09-30)
DX: J43.9 Emphysema, unspecified (principal); I50.33 Acute on chronic diastolic (congestive) heart failure; J98.11 Atelectasis; I11.0 Hypertensive heart disease with heart failure; E66.9 Obesity, unspecified; I48.2 Chronic atrial fibrillation; E11.51 Type 2 diabetes mellitus with diabetic peripheral angiopathy without gangrene; E65 Localized adiposity; Z68.29 Body mass index [BMI] 29.0-29.9, adult; E11.9 Type 2 diabetes mellitus without complications; Z79.84 Long term (current) use of oral hypoglycemic drugs; Z87.891 Personal history of nicotine dependence; Z79.01 Long term (current) use of anticoagulants; R41.3 Other amnesia; N40.0 Benign prostatic hyperplasia without lower urinary tract symptoms; N28.1 Cyst of kidney, acquired; R06.03 Acute respiratory distress
CPT/HCPCS: 36415; 71045-TC-FY; 71250-TC; 80053; 80061; 81003; 82550; 82962; 83036; 83721; 83735; 83880; 84100; 84443; 84484; 85025; 93005; 93010; 93306-TC; 93970-TC; 94640; 94761; 97116-GP; 97161-GP; 99284-25

== ENCOUNTER 2019-11-21 16:26 | Observation (INO) | payer OTHER ==
[2019-11-21] MEDS ORDERED: FUROSEMIDE 40 MG/4 ML INJECTABLE VIAL IVPUSH ONE (18:16)
--- NOTE | 2019-11-21 18:32 | CON.CARD ---
Consult Consult Specialty:: Cardiology Reason for Consultation:: SOB - History of Present Illness History of Present Illness: SOB PMH Stress treadmill MIBI 12/2016 at [facility]: no myocardial ischemia; poor exercise capacity (walked only 1:41 minutes using Peter; test stopped due to leg fatigue, and HR 162 bpm. ECHO 12/2016: limited study: normal LVEF. Ongoing medical problems PAD-->left LE stent 10/[address] Hans Kendrick AF HTN DM (was on Metformin; now diet-controlled) obesity; r/o sleep apnea sedentary COPD (diagnosed 12/2016); former heavy cigarette smoker, and worked near [employer] in the months after 10/25 ECHO Nov 16, 2019 1. This was a technically difficult study with suboptimal views due to lung tissue interference (COPD). 2. Overall left ventricular systolic function is normal with an EF between 60 - 65 %. 3. Mitral Doppler inflow pattern suggests diastolic filling abnormality. 4. Mild basal ventricular septal hypertrophy. 5. Aortic valve is trileaflet and is moderately calcified. 6. There is moderate aortic valve sclerosis without stenosis. 7. There is mild aortic regurgitation. 8. The mitral valve leaflets are moderately thickened. 9. Moderate mitral annular calcification present. 10. Mild mitral regurgitation is present. 11. Moderate tricuspid regurgitation present with right ventricle systolic pressure of 53.4 mmHg, indicative of moderate to severe pulmonary hypertension. 12. Moderately thickened tricuspid valve leaflets. 13. Mild pulmonic regurgitation. Date 11/21/2019 17:07 Electronically signed off by: Will Cisneros M.D., F.A.[place] . . . . . . . . . . . . . . . . . . . . . . . . . . . . . . . . . . . . . . . . . . . . . . . . . . . . . . . . . . . . . . . . . . . . . . . . . . . . . . . . . . . . . . - History Source History Provided By: Medical Record - Past Medical History Cardio/Vascular: Yes: AFIB Pulmonary: Yes: COPD - Alcohol/Substance Use Hx Alcohol Use: No - Smoking History Smoking history: Never smoked Have you smoked in the past 12 months: No If you are a former smoker, when did you quit?: 2001 Home Medications - Allergies Allergies/Adverse Reactions: Allergies Allergy/AdvReac Type Severity Reaction Status Date / Time azithromycin Allergy Verified 11/21/19 16:36 prednisone Allergy Verified 11/21/19 16:36 - Home Medications Home Medications: Ambulatory Orders Apixaban [Eliquis] 5 mg PO BID 09/14/16 Tamsulosin HCl 0.8 mg PO HS 09/14/16 Ipratropium/Albuterol Sulfate [Combivent Respimat 20-100 Mcg] 4 gm IH DAILY 10/02/18 Albuterol 0.083% Nebulizer Vane [Ventolin 0.083% Nebulizer Soln -] 1 amp NEB Q4H PRN amp 10/04/18 Diltiazem Cd [Cardizem Cd -] 2 tab PO BID 02/26/19 Furosemide [Lasix -] 40 mg PO DAILY 02/26/19 Montelukast Na [Singulair -] 5 mg PO HS 02/26/19 Review of Systems - Review of Systems Constitutional: reports: No Symptoms Eyes: reports: No Symptoms HENT: reports: No Symptoms Neck: reports: No Symptoms Cardiovascular: reports: Edema Respiratory: reports: SOB, SOB on Exertion Gastrointestinal: reports: No Symptoms Genitourinary: reports: No Symptoms Breasts: reports: No Symptoms Reported Musculoskeletal: reports: No Symptoms Integumentary: reports: No Symptoms Neurological: reports: No Symptoms Endocrine: reports: No Symptoms Hematology/Lymphatic: reports: No Symptoms Psychiatric: reports: No Symptoms Vital Signs: Vital Signs Temperature 98.1 F 11/21/19 16:33 Pulse Rate 62 11/21/19 16:33 Respiratory Rate 20 11/21/19 16:33 Blood Pressure 126/55 L 11/21/19 16:33 O2 Sat by Pulse Oximetry (%) 92 L 11/21/19 16:33
--- NOTE | 2019-11-21 18:34 | PDOC ---
Attending Attestation - Resident Resident Name: LaurelIrina - ED Attending Attestation I have performed the following: I have examined & evaluated the patient, The case was reviewed & discussed with the resident, I agree w/resident's findings & plan, Exceptions are as noted - HPI HPI: 11/21/19 18:26 84yo male with hx of pad, afib, dm, & copd who follows with Dr. Guerrero and DR. Cisneros presents for eval of sob. Pt states he saw Dr. Cisneros last tuesday in the office and underwent an echo and was told it was "great". Pt states since that visit he has started to feel sob, lara, and pnd. Pt states he has been waking up at night feeling sob and needed to move to the sofa because of sob. Pt also c/o LE edema. States a few days he felt clammy and weak. - Physicial Exam PE: 11/21/19 18:34 Gen: awake, alert, conversational dyspnea heart: +s1s2 reg lungs: coarse bs, wheezing, rhonchi conversational dyspnea abd: soft, obese, nt/nd ext: 2+ pitting edema, +asterixis on exam 11/21/19 18:39 - Medical Decision Making 11/21/19 18:36 a/p: 84yo male with increasing sob -case discussed with cards - covering Dr. Cisneros - has diastolic dysfunction, EF 55% -has been on lasix recently -concern for chf exacerbation vs combo chf copd -also with asterixis on exam -will send labs, ekg, cxr -also recently more confused, will send for head ct -no cp -pt will need admission -bedside ultrasound shows b-lines b/l in all bell -will give iv lasix now 11/21/19 21:04 congestive changes on cxr bnp 500 iv lasix given trop neg will need admission 11/21/19 21:[address] will microblog ravi for admission Dr. Cruz who recently retired and pt needs new PMD 11/21/19 21:39 resident discussed the case with Ravi who accepts pt to service 11/21/19 22:13 granddaughter and pts daughter have POA pt is unable to make medical decisions on his own Heart Score/ECG Review - ECG Intrepretation Comment:: 11/21/19 21:33 afib at 86, nl axis, pvc, no acute st/t wave findings Discharge - Discharge Information Problems reviewed: Yes Clinical Impression/Diagnosis: Acute on chronic diastolic CHF (congestive heart failure), SOB (shortness of breath) on exertion, Orthopnea Condition: Fair - Admission Yes - Follow up/Referral - Patient Discharge Instructions - Post Discharge Activity
[2019-11-21] MEDS ORDERED: FUROSEMIDE 40 MG/4 ML INJECTABLE VIAL ONE (18:41)
--- NOTE | 2019-11-21 19:59 | PDOC ---
History of Present Illness - General Chief Complaint: Shortness of Breath Stated Complaint: SOB/AMS Time Seen by Provider: 11/21/19 17:51 History Source: Patient, Family (granddaughter) Exam Limitations: Language Barrier - History of Present Illness Initial Comments: 11/21/19 19:54 84y M with PMH of COPD (on O2 PRN), Afib (Eliquis) presenting to the ER for SOB. Per granddaughter pt has been increasingly dyspneic and not able to sleep on his bed, preferring to move to the couch. Endorses mild edema in the lower extremities and TINAJERO. Pt saw his home improvement advisor 5 days ago but states symptoms began after. Denies chest pain, fever, chills, abdominal pain, n/v/d, dysuria, hematuria, back pain, neck pain. He states that he thinks he is seeing things. Per Granddaughter pt is not as oriented as before because he does not remember what day of the week it is when he usually does. PMD: Anthony Cards: Amelia Pulm: Yolanda PMH: see hpi PSH: none Meds: see med rec Allergies: azithromycin, prednisone Past History - Medical History Allergies/Adverse Reactions: Allergies Allergy/AdvReac Type Severity Reaction Status Date / Time azithromycin Allergy Verified 11/21/19 16:36 prednisone Allergy Verified 11/21/19 16:36 Home Medications: Ambulatory Orders Apixaban [Eliquis] 5 mg PO BID 09/14/16 Tamsulosin HCl 0.8 mg PO HS 09/14/16 Ipratropium/Albuterol Sulfate [Combivent Respimat 20-100 Mcg] 4 gm IH DAILY 10/02/18 Albuterol 0.083% Nebulizer Vane [Ventolin 0.083% Nebulizer Soln -] 1 amp NEB Q4H PRN amp 10/04/18 Diltiazem Cd [Cardizem Cd -] 2 tab PO BID 02/26/19 Furosemide [Lasix -] 40 mg PO DAILY 02/26/19 Montelukast Na [Singulair -] 5 mg PO HS 02/26/19 Anemia: No Asthma: No Cancer: No Cardiac Disorders: Yes (afib) COPD: Yes CHF: No Dementia: No Diabetes: Yes GI Disorders: No Disorders: Yes (BPH) HTN: Yes Hypercholesterolemia: Yes Liver Disease: No Seizures: No Thyroid Disease: No - Surgical History Abdominal Surgery: No Appendectomy: Yes Cardiac Surgery: No Cholecystectomy: No Lung Surgery: No Neurologic Surgery: No Orthopedic Surgery: No - Immunization History Immunization Up to Date: Yes - Psycho-Social/Smoking History Smoking History: Never smoked Have you smoked in the past 12 months: No If you are a former smoker, when did you quit?: 2001 Cigars Per Day: 0 Information on smoking cessation initiated: No - Substance Abuse Hx (Audit-C & DAST Scrn) How often the patient has a drink containing alcohol: Never Score: In Men: 4 or > Positive; In Women: 3 or > Positive: 0 Screen Result (Pos requires Nsg. Audit-10AR): Negative In the last yr the pt used illegal drug/Rx for NonMed reason: No Score: Yes response is considered Positive: 0 Screen Result (Positive result requires Nsg. DAST-10): Negative Review of Systems - Review of Systems Constitutional: No: Symptoms Reported HEENTM: No: Symptoms Reported Respiratory: Yes: See HPI Cardiac (ROS): Yes: See HPI ABD/GI: No: Symptoms Reported : No: Symptoms Reported Musculoskeletal: No: Symptoms Reported Integumentary: No: Symptoms Reported Neurological: Yes: See HPI *Physical Exam - Vital Signs Last Vital Signs Temp Pulse Resp BP Pulse Ox 98.1 F 62 20 126/55 L 96 11/21/19 16:33 11/21/19 16:33 11/21/19 16:33 11/21/19 16:33 11/21/19 18:54 - Physical Exam General Appearance: Yes: Nourished, Appropriately Dressed. No: Apparent Distress HEENT: positive: EOMI, GUDELIA, Normal ENT Inspection Neck: positive: Trachea midline, Supple Respiratory/Chest: positive: Rhonchi, Wheezing (at bases bilaterally), Other (SOB with talking). negative: Respiratory Distress, Rapid RR Cardiovascular: positive: Regular Rhythm, Regular Rate, S1, S2. negative: Edema, JVD, Murmur Vascular Pulses: Dorsalis-Pedis (R): 2+, Doralis-Pedis (L): 2+ Gastrointestinal/Abdominal: positive: Normal Bowel Sounds, Soft, Protuberent. negative: Guarding, Rebound Musculoskeletal: negative: CVA Tenderness Extremity: positive: Normal Capillary Refill, Pedal Edema (to ankles bilaterally 1+). negative: Calf Tenderness Integumentary: positive: Normal Color, Dry, Warm Neurologic: positive: battery container tester II-XII NML intact, Fully Oriented, Alert, Normal Mood/Affect, Normal Response, Motor Strength 06/18 ED Treatment Course - LABORATORY CBC & Chemistry Diagram: 11/21/19 16:17 11/21/19 16:17 - Medications Given in the ED: ED Medications Discontinued Medications Generic Name Dose Route Start Last Admin Trade Name Adelia PRN Reason Stop Dose Admin Furosemide 20 mg 11/21/19 18:16 11/21/19 18:37 Lasix Injection - IVPUSH 11/21/19 18:17 20 mg ONCE ONE Administration Medical Decision Making - Medical Decision Making 11/21/19 20:05 84y m with pmh of copd, afib, bph presenting to the ER for sob, tinajero, difficulty sleeping and "seeing things". vitals: 92%RA, afebrile, mildly hypotensive for age ddx includes chf exacerbation, copd exacerbation, pna, acs. low suspicion for pe given AC, low suspicion for COVID given negative testing a few days ago. bedside ultrasound with blines. with pedal edema and orthopnea, high suspicion for chf exacerbation. per home improvement advisor agronomy technician, pt has diastolic failure, EF of 50% in echo done in office last Tuesday. -cardiac labs, ammonia, lact, vbg for ams ct head, cxr ekg admission for chf exacerbation given amount of dyspnea. pending labs, ekg, head CT sign out to night team 11/21/19 20:13 Discharge - Discharge Information Problems reviewed: Yes Clinical Impression/Diagnosis: Acute on chronic diastolic CHF (congestive heart failure), SOB (shortness of breath) on exertion, Orthopnea Condition: Fair - Admission Yes - Follow up/Referral Referrals: Alessandro Cruz MD [Primary Care Provider] - - Patient Discharge Instructions - Post Discharge Activity
[2019-11-21 20:01] LABS: BASO % 0.6 % (0-2.0); EOS % 4.9 % (0-4.5); HEMATOCRIT 43.8 % (35.4-49); HEMOGLOBIN 14.4 GM/dL (11.7-16.9); LYMPH % 27.3 % (8-40); MCH 31.7 pg (25.7-33.7); MEAN CELL VOLUME 96.1 fl (80-96); MEAN PLT VOLUME 12.8 fl (7.5-11.1); NEUT % 52.2 % (42.8-82.8); RBC 4.56 M/mm3 (4.00-5.60); RDW 14.4 % (11.9-15.9); WHITE BLOOD COUNT 6.3 K/mm3 (4.0-10.0)
[2019-11-21 20:08] LABS: INR 1.39 (0.83-1.09); PROTHROMBIN TIME (PATIENT) 16.5 SEC (9.7-13.0)
[2019-11-21 20:10] LABS: ACTIVATED PTT 34.9 SECONDS (25.2-36.5)
[2019-11-21 20:13] LABS: VENOUS BASE EXCESS 3.4 mmol/L (-2-2); VENOUS O2 SATURATION 60.6 % (70-80); VENOUS PCO2 65.7 mmHg (38-52); VENOUS PH 7.304 (7.310-7.410)
--- NOTE | 2019-11-21 20:20 | PDOC ---
*Physical Exam - Vital Signs Last Vital Signs Temp Pulse Resp BP Pulse Ox 98.1 F 62 20 126/55 L 96 11/21/19 16:33 11/21/19 16:33 11/21/19 16:33 11/21/19 16:33 11/21/19 18:54 ED Treatment Course - LABORATORY CBC & Chemistry Diagram: 11/21/19 16:17 11/21/19 16:17 - ADDITIONAL ORDERS Additional order review: Laboratory Results 11/21/19 11/21/19 16:17 16:17 PT with INR 16.50 H INR 1.39 H PTT (Actin FS) 34.9 VBG pH 7.304 L POC VBG pCO2 65.7 H POC VBG pO2 35.5 VBG HCO3 31.9 H VBG O2 Sat (Lucia) 60.6 L VBG Base Excess 3.4 H 11/21/19 16:17 RBC 4.56 MCV 96.1 H MCHC 33.0 RDW 14.4 MPV 12.8 H Neutrophils % 52.2 D Lymphocytes % 27.3 D Monocytes % 15.0 H D Eosinophils % 4.9 H D Basophils % 0.6 D - Medications Given in the ED: ED Medications Discontinued Medications Generic Name Dose Route Start Last Admin Trade Name Freq PRN Reason Stop Dose Admin Furosemide 20 mg 11/21/19 18:16 11/21/19 18:37 Lasix Injection - IVPUSH 11/21/19 18:17 20 mg ONCE ONE Administration Medical Decision Making - Medical Decision Making 11/21/19 20:20 84y m with pmh of copd, afib on AC, bph presenting to the ER for sob, lara, difficulty sleeping and "seeing things". vitals: 92%RA, afebrile, mildly hypotensive for age PE notable for asterixis, awake/alert/oriented (but reports episodic confusion/repetition of questions), coarse bs, wheezing, rhonchi conversational dyspnea, BLE edema ddx includes chf exacerbation, copd exacerbation, pna, acs. low suspicion for pe given AC, low suspicion for COVID given negative testing a few days ago. bedside ultrasound with b-lines. with pedal edema and orthopnea, high suspicion for chf exacerbation. per early morning babysitter travel sales consultant, pt has diastolic failure, EF of 50% in echo done in office last Tuesday. -cardiac labs, ammonia, lact, vbg for ams -ct head -cxr -ekg admission for chf exacerbation given amount of dyspnea. pending labs, ekg, head CT EKG: Afib w/PVCs, vent rate 86bpm, QTc 445ms, no TWIs, no ST elevations or depressions Labs reviewed. Notable for bnp 506, Ammonia 54 11/22/19 00:36 CTH negative Admitted for CHF exacerbation, hyperammonemia Discharge - Discharge Information Problems reviewed: Yes Clinical Impression/Diagnosis: Acute on chronic diastolic CHF (congestive heart failure), SOB (shortness of breath) on exertion, Orthopnea Condition: Fair - Admission Yes - Follow up/Referral - Patient Discharge Instructions - Post Discharge Activity
[2019-11-21 20:32] LABS: ALBUMIN 3.6 g/dl (3.4-5.0); ALK PHOS 81 U/L (45-117); ANION GAP 4 MMOL/L (8-16); BILIRUBIN,TOTAL 0.4 mg/dL (0.2-1); BLOOD UREA NITROGEN 12.4 mg/dL (7-18); CALCIUM 8.6 mg/dL (8.5-10.1); CHLORIDE 100 mmol/L (98-107); CO2 35 mmol/L (21-32); GLUCOSE,RANDOM 109 mg/dL (74-106); MAGNESIUM 2.1 mg/dL (1.8-2.4); N-TERMINAL BNP 506.3 pg/ml (5-450); POTASSIUM 4.6 mmol/L (3.5-5.1); SGOT/AST 15 U/L (15-37); SGPT/ALT 17 U/L (13-61); SODIUM 140 mmol/L (136-145); TOT PROT 7.3 g/dl (6.4-8.2)
[2019-11-21] MEDS ORDERED: LACTULOSE 20 GM/30 ML UDC (FOR ORAL USE ONLY) PO ONE (21:30)
[2019-11-21 21:49] LABS: PLATELET COUNT 106 K/MM3 (134-434); PLATELET ESTIMATE DECREASED
[2019-11-21] MEDS ORDERED: ALBUTEROL SO4 HFA INHALER IH PRN (22:58)
[2019-11-21] MEDS ORDERED: LACTULOSE 20 GM/30 ML UDC (FOR ORAL USE ONLY) ONE (23:16)
[2019-11-21] MEDS ORDERED: APIXABAN 5 MG TABLET ONE (23:16)
[2019-11-21] MEDS ORDERED: MONTELUKAST NA 10 MG TABLET ONE (23:17)
--- NOTE | 2019-11-21 23:28 | HP ---
CHIEF COMPLAINT:shortness of breath, leg swelling, and confusion PCP:Dr. Cruz Ice Skating Instructor: Dr. Cisneros Pulmonary:Dr. Guerrero HISTORY OF PRESENT ILLNESS: 84 year old male with a past medical history of atrial fibrillation ,on eliquis, diabetes mellitus, PAD and COPD who presents for evaluation shortness of breath. He reported he saw Dr. Cisneros last tuesday in the office and underwent an echocardiogram which showed an EF of 60-65% and moderate tricuspid regurgitation. Patient states since that visit he has started to feel sob, lara, orthopnea and pnd. Patient states he has been waking up at night feeling sob and he needed to move to the sofa because of sob. Patient also c/o lower extremity edema. He reports he felt clammy and weak. Daughter at bedside also reported signs of confusion. He denied fever, cough, chills, malaise, chest pain, dizziness, abdominal pain, nasuea or vomiting. Daughter also reported he stopped taking his oral lasix at home. ER course notable for: elevated BNP 506, normal troponin CXR: minimal congestive changes elevated ammonia level (54) thrombocytopenia (platelets 106,000) EKG- atrial fibrillation heart rate 80's CT scan of head- moderate atrophy, no acute intracranial bleed In the ER he received IV lasix 40mg once. He diuresed 2 full urinal bottles. Patient is unable to make decisions on his own. Daughter and granddaughter have POA. Recent Travel: no PAST MEDICAL HISTORY: atrial fibrillation diabetes mellitus PAD COPD PAST SURGICAL HISTORY: none Social History: Smoking:no Alcohol:no Drugs: no Allergies azithromycin Allergy (Verified 11/21/19 16:36) prednisone Allergy (Verified 11/21/19 16:36) HOME MEDICATIONS: Home Medications Medication Instructions Recorded Apixaban [Eliquis] 5 mg PO BID 09/14/16 Tamsulosin HCl 0.8 mg PO HS 09/14/16 Ipratropium/Albuterol Sulfate 4 gm IH DAILY 10/02/18 [Combivent Respimat 20-100 Mcg] Albuterol 0.083% Nebulizer Vane 1 amp NEB Q4H PRN amp 10/04/18 [Ventolin 0.083% Nebulizer Soln -] Diltiazem Cd [Cardizem Cd -] 2 tab PO BID 02/26/19 Furosemide [Lasix -] 40 mg PO DAILY 02/26/19 Montelukast Na [Singulair -] 5 mg PO HS 02/26/19 REVIEW OF SYSTEMS CONSTITUTIONAL: Absent: fever, chills, diaphoresis, generalized weakness, malaise, loss of appetite, weight change HEENT: Absent: rhinorrhea, nasal congestion, throat pain, throat swelling, difficulty swallowing, mouth swelling, ear pain, eye pain, visual changes CARDIOVASCULAR: Absent: chest pain, syncope, palpitations, irregular heart rate, lightheadedness, peripheral edema RESPIRATORY: Absent: cough, shortness of breath, dyspnea with exertion, orthopnea, wheezing, stridor, hemoptysis GASTROINTESTINAL: Absent: abdominal pain, abdominal distension, nausea, vomiting, diarrhea, constipation, melena, hematochezia GENITOURINARY: Absent: dysuria, frequency, urgency, hesitancy, hematuria, flank pain, genital pain MUSCULOSKELETAL: Absent: myalgia, arthralgia, joint swelling, back pain, neck pain SKIN: Absent: rash, itching, pallor HEMATOLOGIC/IMMUNOLOGIC: Absent: easy bleeding, easy bruising, lymphadenopathy, frequent infections ENDOCRINE: Absent: unexplained weight gain, unexplained weight loss, heat intolerance, cold intolerance NEUROLOGIC: Absent: headache, focal weakness or paresthesias, dizziness, unsteady gait, seizure, mental status changes, bladder or bowel incontinence PSYCHIATRIC: Absent: anxiety, depression, suicidal or homicidal ideation, hallucinations. PHYSICAL EXAMINATION Vital Signs - 24 hr 11/21/19 11/21/19 16:33 18:54 Temperature 98.1 F Pulse Rate 62 Respiratory 20 Rate Blood Pressure 126/55 L O2 Sat by Pulse 92 L 96 Oximetry (%) General no acute distress Vital signs reviewed afebrile Neck no JVD Neuro awake alert oriented to person place and time follow commands appropriately Lungs coarse BS nonlabored breathing effort no wheezing Heart s1s2 rate regular no murmurs Abdomen soft nontender Extremities warm to palpation 2+ pitting edema present bilaterally Skin lower extremities warm on palpation Mood calm Laboratory Results - last 24 hr 11/21/19 11/21/19 11/21/19 16:17 16:17 16:17 WBC 6.3 RBC 4.56 Hgb 14.4 Hct 43.8 MCV 96.1 H MCH 31.7 MCHC 33.0 RDW 14.4 Plt Count 106 L D MPV 12.8 H Absolute Neuts (auto) 3.3 Neutrophils % 52.2 D Lymphocytes % 27.3 D Monocytes % 15.0 H D Eosinophils % 4.9 H D Basophils % 0.6 D Nucleated RBC % 0 Platelet Estimate Decreased Platelet Comment Large platelets PT with INR 16.50 H INR 1.39 H PTT (Actin FS) 34.9 VBG pH 7.304 L POC VBG pCO2 65.7 H POC VBG pO2 35.5 VBG HCO3 31.9 H VBG O2 Sat (Lucia) 60.6 L VBG Base Excess 3.4 H Sodium Potassium Chloride Carbon Dioxide Anion Gap BUN Creatinine Est GFR (CKD-EPI)AfAm Est GFR (CKD-EPI)NonAf Random Glucose Lactic Acid Calcium Magnesium Total Bilirubin AST ALT Alkaline Phosphatase Ammonia Creatine Kinase Troponin I B-Natriuretic Peptide Total Protein Albumin 11/21/19 11/21/19 11/21/19 16:17 16:17 16:17 WBC RBC Hgb Hct MCV MCH MCHC RDW Plt Count MPV Absolute Neuts (auto) Neutrophils % Lymphocytes % Monocytes % Eosinophils % Basophils % Nucleated RBC % Platelet Estimate Platelet Comment PT with INR INR PTT (Actin FS) VBG pH POC VBG pCO2 POC VBG pO2 VBG HCO3 VBG O2 Sat (Lucia) VBG Base Excess Sodium 140 Potassium 4.6 Chloride 100 Carbon Dioxide 35 H Anion Gap 4 L BUN 12.4 Creatinine 1.0 Est GFR (CKD-EPI)AfAm 79.75 Est GFR (CKD-EPI)NonAf 68.81 Random Glucose 109 H Lactic Acid 1.1 Calcium 8.6 Magnesium 2.1 Total Bilirubin 0.4 AST 15 ALT 17 Alkaline Phosphatase 81 Ammonia 54.30 H Creatine Kinase 108 Troponin I < 0.02 B-Natriuretic Peptide 506.3 H Total Protein 7.3 Albumin 3.6 DIAGNOSTICS; ECHO Nov 16, 2019 1. This was a technically difficult study with suboptimal views due to lung tissue interference (COPD). 2. Overall left ventricular systolic function is normal with an EF between 60 - 65 %. 3. Mitral Doppler inflow pattern suggests diastolic filling abnormality. 4. Mild basal ventricular septal hypertrophy. 5. Aortic valve is trileaflet and is moderately calcified. 6. There is moderate aortic valve sclerosis without stenosis. 7. There is mild aortic regurgitation. 8. The mitral valve leaflets are moderately thickened. 9. Moderate mitral annular calcification present. 10. Mild mitral regurgitation is present. 11. Moderate tricuspid regurgitation present with right ventricle systolic pressure of 53.4 mmHg, indicative of moderate to severe pulmonary hypertension. 12. Moderately thickened tricuspid valve leaflets. 13. Mild pulmonic regurgitation. ASSESSMENT/PLAN: Mr. Pulido is an 84 year old male with a past medical history of atrial fibrillation ,on eliquis, diabetes mellitus, PAD and COPD who presented with symptoms of shortness of breath, orthopnea, LARA, PND, abdominal distention and bilateral lower extremity swelling. BNP was 506 and CXR showed minimal congestive changes. His findings are consistent with acute on chronic diastolic congestive heart failure in the setting of medication noncompliance. 1. acute on chronic diastolic congestive heart failure likely in the setting of medication noncompliance symptomatic and overloaded on clinical exam BNP 506, echo results as above- EF 60-65% CXR with minimal congestive changes received IV lasix 40 mg once and diuresing well added IV lasix 40 mg BID monitor strict I&O's, daily weights, renal function and electrolytes Cardiology- Dr. Yates consulted 2. AMS/ Hyperamonemia mental status resolved to baseline CT scan of head with moderate atrophy and no acute intracranial findings, no hemorrhage Lactulose 30mg once given repeat ammonia level in am 3. Atrial Fibrillation rate controlled c/w Cardizem 240 mg daily (EF normal by echo) c/w eliquis for anticoagulation( has low platelets 103,000) 4. COPD diagnosed 12/2016; former heavy cigarette smoker, and worked near [employer] in the months after 10/25 no acute exacerbation on exam and findings more consistent with acute CHF PCO2 65.7 on admission c/w manishaolin and yeni Pulmonary- Dr. Guerrero consulted 5. Hx of PAD left LE stent 10/[address] Hans Kendrick 6. Diabetes Mellitus previously on metformin, now diet controlled BGM achs ISS check HgbA1c 7. Rule Out COVID follow up on COVID results maintain strict droplet/airborne precautions maintain o2 sat >90% DVT Prophylaxis SCD's c/w eliquis FEN avoid IVF to prevent acute pulmonary edema BMP daily and replete electrolytes as needed low sodium diet Family Medical History Family History: Unable to Obtain Visit type - Medication Review Med list reviewed for High Risk Meds patients 65 and older: Yes - Emergency Visit Emergency Visit: Yes ED Registration Date: 11/21/19 Care time: The patient presented to the Emergency Department on the above date and was hospitalized for further evaluation of their emergent condition. - New Patient This patient is new to me today: Yes Date on this admission: 11/22/19 - Critical Care Critical Care patient: No
[2019-11-21] MEDS: APIXABAN 5 MG TABLET PO SCH (23:39)
[2019-11-21] MEDS: MONTELUKAST NA 5 MG TAB.CHEW PO SCH (23:39)
[2019-11-22] MEDS: FUROSEMIDE 40 MG/4 ML INJECTABLE VIAL IVPUSH SCH ×2 (06:38→14:03)
[2019-11-22 07:07] LABS: BLOOD UREA NITROGEN 11.4 mg/dL (7-18); CALCIUM 8.8 mg/dL (8.5-10.1); MAGNESIUM 2.1 mg/dL (1.8-2.4)
[2019-11-22 07:11] LABS: HEMATOCRIT 46.5 % (35.4-49); HEMOGLOBIN 15.5 GM/dL (11.7-16.9); MCH 31.9 pg (25.7-33.7); MCHC 33.4 g/dl (32.0-35.9); MEAN CELL VOLUME 95.7 fl (80-96); MEAN PLT VOLUME 12.7 fl (7.5-11.1); PLATELET COUNT 105 K/MM3 (134-434); RBC 4.86 M/mm3 (4.00-5.60); RDW 14.3 % (11.9-15.9); WHITE BLOOD COUNT 6.2 K/mm3 (4.0-10.0)
[2019-11-22] MEDS: INSULIN SLIDING SCALE (NOVOLOG) 1 VIAL SQ SCH ×4 (08:08→21:54)
[2019-11-22] MEDS: TAMSULOSIN HCL 0.4 MG CAP PO SCH (08:30)
[2019-11-22] MEDS ORDERED: APIXABAN 5 MG TABLET ONE (09:58)
[2019-11-22] MEDS ORDERED: TAMSULOSIN HCL 0.4 MG CAP ONE (09:58)
[2019-11-22] MEDS ORDERED: PATIENT'S OWN MEDICATION (NON-FORMULARY) (Ipratropium/Albuterol Sulfate 4 GM) IH SCH (10:00)
[2019-11-22] MEDS: APIXABAN 5 MG TABLET PO SCH ×2 (10:09→21:54)
--- NOTE | 2019-11-22 11:46 | CON.PULM ---
Consult Consult Specialty:: PULMONARY Referred by:: Dr Francois Reason for Consultation:: shortness of breath - History of Present Illness Chief Complaint: shortness of breath History of Present Illness: 84yo male with h/o DM, atrial fibrillation, COPD, PAD who was admitted with worsening shortness of breath x 5 days. No chest pain or palpitations. No fevers, chills or sweats. No cough or wheezing. Reports increase in leg swelling and orthopnea. No nausea, vomiting, abdominal pain. Reportedly had stopped his lasix at home. CXR showing mild pulmonary vascular congestion. He is a remote smoker, denies history of asthma or COPD. - History Source History Provided By: Patient, Medical Record Limitations to Obtaining History: No Limitations - Past Medical History Cardio/Vascular: Yes: AFIB Pulmonary: Yes: COPD - Alcohol/Substance Use Hx Alcohol Use: No - Smoking History Smoking history: Never smoked Have you smoked in the past 12 months: No If you are a former smoker, when did you quit?: 2001 Home Medications - Allergies Allergies/Adverse Reactions: Allergies Allergy/AdvReac Type Severity Reaction Status Date / Time azithromycin Allergy Verified 11/21/19 16:36 prednisone Allergy Verified 11/21/19 16:36 - Home Medications Home Medications: Ambulatory Orders Apixaban [Eliquis] 5 mg PO BID 09/14/16 Tamsulosin HCl 0.8 mg PO HS 09/14/16 Ipratropium/Albuterol Sulfate [Combivent Respimat 20-100 Mcg] 4 gm IH DAILY 10/02/18 Albuterol 0.083% Nebulizer Vane [Ventolin 0.083% Nebulizer Soln -] 1 amp NEB Q4H PRN amp 10/04/18 Diltiazem Cd [Cardizem Cd -] 2 tab PO BID 02/26/19 Furosemide [Lasix -] 40 mg PO DAILY 02/26/19 Montelukast Na [Singulair -] 5 mg PO HS 02/26/19 Review of Systems - Review of Systems Constitutional: denies: Chills, Fever Eyes: denies: Recent Change in Vision HENT: denies: Nasal Congestion, Throat Pain Neck: denies: Stiffness, Tenderness Cardiovascular: reports: Shortness of Breath Respiratory: reports: SOB on Exertion. denies: Cough, Hemoptysis, Wheezing Gastrointestinal: denies: Abdominal Pain, Nausea, Vomiting Genitourinary: denies: Dysuria Neurological: denies: Dizziness, Headache Endocrine: denies: Unexplained Weight Loss Physical Exam Vital Sings: Vital Signs Temperature 97.7 F 11/22/19 10:13 Pulse Rate 90 11/22/19 10:13 Respiratory Rate 22 H 11/22/19 10:13 Blood Pressure 134/69 11/22/19 10:13 O2 Sat by Pulse Oximetry (%) 99 11/22/19 07:45 Constitutional: Yes: No Distress, Calm Eyes: Yes: Conjunctiva Clear, EOM Intact HENT: Yes: Atraumatic, Normocephalic Neck: Yes: Supple, Trachea Midline Cardiovascular: Yes: Regular Rate and Rhythm Respiratory: Yes: Rales ...Clubbing: No Gastrointestinal: Yes: Normal Bowel Sounds, Soft. No: Tenderness Edema: Yes Neurological: Yes: Alert, Oriented Labs: CBC, BMP 11/22/19 06:23 11/22/19 06:00 Imaging - Results Chest X-ray: Report Reviewed, Image Reviewed (pulmonary vascular congestion) Assessment/Plan Acute on Chronic Diastolic Heart Failure Atrial Fibrillation COPD PAD DM - continue lasix - monitor urine output, creatinine - daily weights - O2 to keep SpO2 >90% - rate controlled - continue anticoagulation Thank you for this consult Remington Barron MD
[2019-11-22] MEDS ORDERED: dilTIAZem HCL 60 MG TABLET ONE (12:29)
[2019-11-22] MEDS: dilTIAZem HCL 60 MG TABLET PO SCH (12:35)
--- NOTE | 2019-11-22 13:22 | EKG ---
Test Reason : Blood Pressure : / mmHG Vent. Rate : 086 BPM Atrial Rate : 357 BPM P-R Int : 000 ms QRS Dur : 086 ms QT Int : 372 ms P-R-T Axes : 000 075 070 degrees QTc Int : 445 ms ATRIAL FIBRILLATION WITH PREMATURE VENTRICULAR OR ABERRANTLY CONDUCTED COMPLEXES ABNORMAL ECG WHEN COMPARED WITH ECG OF 30-SEP-2018 15:33, NO SIGNIFICANT CHANGE WAS FOUND Confirmed by MELLISSA VALERIO MD ([id number]) on 11/22/2019 1:22:28 PM Referred By: Confirmed By:MELLISSA VALERIO MD
[2019-11-22] MEDS ORDERED: FUROSEMIDE 40 MG/4 ML INJECTABLE VIAL ONE (14:05)
--- NOTE | 2019-11-22 15:09 | PN ---
Physical Exam: SUBJECTIVE: Patient seen and examined today. Spoken w/ via traveling sales representative. Ability to participate in interview limited 2/2 difficulty with memory. States unsure about medication compliance, and whether he has taken his medications since his last hospitalization. Endorses no positive symptoms, states he is completely fine. Denies F/C, SUAZO, changes in vision, CP, SoB, N/V/D, urinary/bowel incontinence. OBJECTIVE: Vital Signs Period Temp Pulse Resp BP Sys/Redd Pulse Ox Last 24 Hr 97.7 F-98.1 F 62-90 18-22 126-160/55-77 92-99 GENERAL: The patient is awake, alert, and fully oriented, in no acute distress. HEAD: Normal with no signs of trauma. EYES: PERRL, extraocular movements intact, sclera anicteric, conjunctiva clear. No ptosis. ENT: Ears normal, nares patent, oropharynx clear without exudates, moist mucous membranes. NECK: Trachea midline, full range of motion, supple. LUNGS: Wheezing heard bilaterally, no crackles, no accessory muscle use. HEART: Afib, no murmurs. ABDOMEN: Soft, nontender, nondistended, normoactive bowel sounds UPPER EXTREMITIES: 2+ pulses, warm, well-perfused, no edema. LOWER EXTREMITIES: 2+ pitting edema bilaterally. R LE shows speckled black spots on the ankle NEUROLOGICAL: Normal speech, gait not observed. PSYCH: Normal mood, normal affect, mentation is questionable SKIN: Warm, dry, normal turgor, no rashes or lesions noted, except as otherwise noted Laboratory Results - last 24 hr CBC, BMP 11/22/19 06:23 11/22/19 06:00 Active Medications Generic Name Dose Route Start Last Admin Trade Name Freq PRN Reason Stop Dose Admin Albuterol Sulfate 1 amp 11/21/19 21:30 Ventolin 0.083% Nebulizer Soln - NEB Q4H PRN SHORT OF BREATH/WHEEZING Albuterol Sulfate 2 puff 11/21/19 22:58 Ventolin Hfa Inhaler - IH Q4H PRN SHORTNESS OF BREATH Apixaban 5 mg 11/21/19 22:00 11/22/19 10:09 Eliquis - PO 5 mg BID LARRY Administration Diltiazem HCl 240 mg 11/22/19 11:45 11/22/19 12:35 Cardizem - PO 240 mg DAILY [facility] Administration Furosemide 40 mg 11/22/19 06:00 11/22/19 14:03 Lasix Injection - IVPUSH 40 mg BID@0600,1400 [facility] Administration Insulin Aspart 1 vial 11/22/19 07:00 11/22/19 11:10 Novolog Vial Sliding Scale - SQ Not Given ACHS [facility] Protocol Montelukast Sodium 5 mg 11/21/19 22:00 11/21/19 23:39 Singulair - PO 5 mg HS LARR[facility] Administration Non-Formulary Medication 4 gm 11/22/19 10:00 Ipratropium/Albuterol Sulfate IH DAILY [facility] Tamsulosin HCl 0.8 mg 11/22/19 08:30 11/22/19 08:30 Flomax - PO 0.8 mg DAILY@0830 [facility] Administration ASSESSMENT/PLAN: 84 yo M (who gives questionable history due to memory) w/ PMHx of atrial fibril lation (unsure if compliant w/ eliquis), DM, PAD (left LE stent 10/2016) and COPD presented with SoB and bilateral lower extremity for 1 month. Ptn states he has not taken his medication including his lasix for at least 1 month. Denies any current F/C, SUAZO, changes in vision, CP, N/V/D, or changes in urinary/bowel habits. ACUTE ON CHRONIC DIASTOLIC HEART FAILURE 2/2 MEDICATION NON-COMPLIANCE -Medication non-compliance at least 1 Month -2+ Pitting Edema LE b/l -ECHO (11/16/2019): EF 60-65% Diastolic filling abnormality. Mild basal ventricular septal hypertorphy. Mild AR, Mild MR, Moderate TR. RV sys presure 53.4 indicitive of moderate to severe Pulm HTN. Mild Pulmonic regurg. -CXR: Minimal atelectatic changes at the bases. Congestive changes since XR on 09/30/2018 -BNP 506 -Cardiology Consulted -Pulmonology Consulted -c/w Lasix 40mg IV BID HISTORY OF COPD -Diagnosed 12/2016. Hx of heavy smoking (former). Hx of WTC exposure s/p 10/25 -Wheezing heard on exam b/l -VB.3/65/35/31 -c/w Ventolin Q4 PRN -c/w Ipratropium/Albuterol 4mg Qdaily -c/w Singulair 5mg daily -FU Pulm Recs: ALTERED MENTATION r/o ACUTE TOXIC METABOLIC ENCEPHALOPATHY 2/2 HYPERAMMONEMIA -Ptn unable to give concise history -CT Head: Moderate volume loss and ventricular dilatation. Moderate chronic microvascular ischemic changes are present No mass lesion, gross acute infarct or intracranial hemorrhage are identified. 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 No acute findings -Ammonia Level: 54 --> 46 -Repeat ammonia level tomorrow ATRIAL FIBRILLATION NOT COMPLIANT WITH ELIQUIS -Ptn non-compliant with medication -c/w Cardizem 240 mg daily -c/w eliquis 5mg BID -Monitor platelets and bleeding PERIPHERAL ARTERY DISEASE -Left LE stent placed 10/[address] 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 - New Patient This patient is new to me today: Yes Date on this admission: 11/22/19 - Critical Care Critical Care patient: No - Discharge Referral Referred to [facility] Med P.C.: No - Medication Review Med list reviewed for High Risk Meds patients 65 and older: Yes ATTENDING PHYSICIAN STATEMENT I saw and evaluated the patient. I reviewed the resident's note and discussed the case with the resident. I agree with the resident's findings and plan as documented. SUBJECTIVE: OBJECTIVE: ASSESSMENT AND PLAN:
--- NOTE | 2019-11-22 16:46 | PN ---
Teaching Attending Note Name of Resident: Tervor Wong ATTENDING PHYSICIAN STATEMENT I saw and evaluated the patient. I reviewed the resident's note and discussed the case with the resident. I agree with the resident's findings and plan as documented. SUBJECTIVE: Patient is feeling better but continues to have shortness of breath, on oxygen, daughter at bedside. OBJECTIVE: Vital Signs Temperature 97.7 F 11/22/19 10:13 Pulse Rate 90 11/22/19 10:13 Respiratory Rate 22 H 11/22/19 10:13 Blood Pressure 134/69 11/22/19 10:13 O2 Sat by Pulse Oximetry (%) 99 11/22/19 07:45 PE:per resident's note Chest: decreased Air entry BL , no accessory muscle use Ext: 2+ edema CBCD WBC 6.2 K/mm3 (4.0-10.0) 11/22/19 06:23 RBC 4.86 M/mm3 (4.00-5.60) 11/22/19 06:23 Hgb 15.5 GM/dL (11.7-16.9) 11/22/19 06:23 Hct 46.5 % (35.4-49) 11/22/19 06:23 MCV 95.7 fl (80-96) 11/22/19 06:23 MCHC 33.4 g/dl (32.0-35.9) 11/22/19 06:23 RDW 14.3 % (11.9-15.9) 11/22/19 06:23 Plt Count 105 K/MM3 (134-434) L 11/22/19 06:23 MPV 12.7 fl (7.5-11.1) H 11/22/19 06:23 CMP Sodium 140 mmol/L (136-145) 11/22/19 06:00 Potassium 4.0 mmol/L (3.5-5.1) 11/22/19 06:00 Chloride 100 mmol/L (98-107) 11/22/19 06:00 Carbon Dioxide 34 mmol/L (21-32) H 11/22/19 06:00 Anion Gap 5 MMOL/L (8-16) L 11/22/19 06:00 BUN 11.4 mg/dL (7-18) 11/22/19 06:00 Creatinine 1.0 mg/dL (0.55-1.3) 11/22/19 06:00 Random Glucose 120 mg/dL (74-106) H 11/22/19 06:00 Calcium 8.8 mg/dL (8.5-10.1) 11/22/19 06:00 Total Bilirubin 0.4 mg/dL (0.2-1) 11/21/19 16:17 AST 15 U/L (15-37) 11/21/19 16:17 ALT 17 U/L (13-61) 11/21/19 16:17 Alkaline Phosphatase 81 U/L (45-117) 11/21/19 16:17 Total Protein 7.3 g/dl (6.4-8.2) 11/21/19 16:17 Albumin 3.6 g/dl (3.4-5.0) 11/21/19 16:17 CARDIAC ENZYMES Creatine Kinase 108 U/L (26-308) 11/21/19 16:17 Troponin I < 0.02 ng/ml (0.00-0.05) 11/21/19 16:17 Current Medications Generic Name Dose Route Start Last Admin Trade Name Freq PRN Reason Stop Dose Admin Albuterol Sulfate 1 amp 11/21/19 21:30 Ventolin 0.083% Nebulizer Soln - NEB Q4H PRN SHORT OF BREATH/WHEEZING Albuterol Sulfate 2 puff 11/21/19 22:58 Ventolin Hfa Inhaler - IH Q4H PRN SHORTNESS OF BREATH Apixaban 5 mg 11/21/19 22:00 11/22/19 10:09 Eliquis - PO 5 mg BID LARRY Administration Diltiazem HCl 240 mg 11/22/19 11:45 11/22/19 12:35 Cardizem - PO 240 mg DAILY LARRY Administration Furosemide 40 mg 11/22/19 06:00 11/22/19 14:03 Lasix Injection - IVPUSH 40 mg BID@0600,1400 LARRY Administration Influenza Virus Vaccine 60 mcg 11/22/19 16:28 Flulaval Quad [id number] Syr IM 11/22/19 16:29 .ONCE ONE Insulin Aspart 1 vial 11/22/19 07:00 11/22/19 11:10 Novolog Vial Sliding Scale - SQ Not Given ACHS [facility] Protocol Montelukast Sodium 5 mg 11/21/19 22:00 11/21/19 23:39 Singulair - PO 5 mg HS [facility] Administration Non-Formulary Medication 4 gm 11/22/19 10:00 Ipratropium/Albuterol Sulfate IH DAILY [facility] Tamsulosin HCl 0.8 mg 11/22/19 08:30 11/22/19 08:30 Flomax - PO 0.8 mg DAILY@0830 [facility] Administration Home Medications Medication Instructions Recorded Apixaban [Eliquis] 5 mg PO BID 09/14/16 Tamsulosin HCl 0.8 mg PO HS 09/14/16 Ipratropium/Albuterol Sulfate 4 gm IH DAILY 10/02/18 [Combivent Respimat 20-100 Mcg] Albuterol 0.083% Nebulizer Vane 1 amp NEB Q4H PRN amp 10/04/18 [Ventolin 0.083% Nebulizer Soln -] Diltiazem Cd [Cardizem Cd -] 2 tab PO DAILY 02/26/19 Furosemide [Lasix -] 40 mg PO DAILY 02/26/19 Montelukast Na [Singulair -] 5 mg PO HS 02/26/19 Budesonide/Formeterol Fumarate 2 inh PO BID 11/22/19 [SYMBICORT 160/4.5mcg -] Laboratory Tests 11/21/19 11/21/19 11/22/19 16:17 16:17 06:00 Hemoglobin A1c % 6.7 H Ammonia 54.30 H B-Natriuretic Peptide 506.3 H 11/22/19 06:00 Hemoglobin A1c % Ammonia 46.20 H B-Natriuretic Peptide CXR: minimal congestive changes, sclerotic knob, slightly prominent saúl and enlarged heart. soft tissues are intact. CT scan of the head without IV contrast: moderate atrophy, no gross evidence of a focal Intracranial lesion or hemorrhage is seen. ECHO (11/16/2019): EF 60-65% Diastolic filling abnormality. Mild basal ventricular septal hypertorphy. Mild AR, Mild MR, Moderate TR. RV sys presure 53.4 indicitive of moderate to severe Pulm HTN. Mild Pulmonic regurg. ASSESSMENT AND PLAN: This patient is an 84yom with Pmhx of atrial fibrillation (on Eliquis at home) , DM, PAD (left LE stent 10/2016) and COPD presented with SoB and bilateral lower extremity swelling x 1 month. As per patient has not taken his home lasix for at least 1 month. Was admitted for acute on chronic diastolic CHF. #Acute on chronic diastolic CHF: BNP 506, cardio consulted, on IV Lasix 40mg IV Bid #Hx of COPD stable: continue -nebs, Singulair 5mg daily , pulmonary consult , maintain o2 sat >90% #Acute Change of mental status with elevated ammonia level due to TOXIC METABOLIC ENCEPHALOPATHY , Ammonia level is trending down #A-FIBRILLATION on ELIQUIS will continue , cardizem 240mg CD, Ptn non-compliant with medication # PAD with Left LE stent placed 10/[address] Hans Kendrick #T2DM on SS with coverage , A1c is 6.7 #bph CONTINUE Tamulosin 0.8mg hs home dose continue #e/o COVID DVT px: SCDs, Jose Maria
[2019-11-22 16:47] VITALS: BMI 31.4
[2019-11-22] MEDS ORDERED: PT OWN MED DRAWER 7, Y5N ONE (21:19)
[2019-11-22] MEDS: MONTELUKAST NA 5 MG TAB.CHEW PO SCH (21:59)
[2019-11-23] MEDS: FUROSEMIDE 40 MG/4 ML INJECTABLE VIAL IVPUSH SCH ×2 (06:06→13:48)
[2019-11-23] MEDS: INSULIN SLIDING SCALE (NOVOLOG) 1 VIAL SQ SCH ×2 (06:06→11:57)
--- NOTE | 2019-11-23 07:35 | PN ---
Progress Note, Physician History of Present Illness: pulmonary alert,comfortable,sob improving - Current Medication List Current Medications: Active Medications Albuterol Sulfate (Ventolin 0.083% Nebulizer Soln -) 1 amp NEB Q4H PRN PRN Reason: SHORT OF BREATH/WHEEZING Albuterol Sulfate (Ventolin Hfa Inhaler -) 2 puff IH Q4H PRN PRN Reason: SHORTNESS OF BREATH Apixaban (Eliquis -) 5 mg PO BID [facility] Last Admin: 11/22/19 21:54 Dose: 5 mg Documented by: Diltiazem HCl (Cardizem -) 240 mg PO DAILY [facility] Last Admin: 11/22/19 12:35 Dose: 240 mg Documented by: Furosemide (Lasix Injection -) 40 mg IVPUSH BID@0600,1400 [facility] Last Admin: 11/23/19 06:06 Dose: 40 mg Documented by: Influenza Virus Vaccine (Flulaval Quad [id number] Syr) 60 mcg IM .ONCE ONE Stop: 11/22/19 16:29 Insulin Aspart (Novolog Vial Sliding Scale -) 1 vial SQ [facility]; Protocol Last Admin: 11/23/19 06:06 Dose: Not Given Documented by: Montelukast Sodium (Singulair -) 5 mg PO HS [facility] Last Admin: 11/22/19 21:59 Dose: 5 mg Documented by: Non-Formulary Medication (Ipratropium/Albuterol Sulfate) 4 gm IH DAILY [facility] Tamsulosin HCl (Flomax -) 0.8 mg PO DAILY@0830 [facility] Last Admin: 11/22/19 08:30 Dose: 0.8 mg Documented by: - Objective Vital Signs: Vital Signs Temperature 98.0 F 11/23/19 06:00 Pulse Rate 80 11/23/19 06:00 Respiratory Rate 18 11/23/19 06:00 Blood Pressure 144/71 11/23/19 06:00 O2 Sat by Pulse Oximetry (%) 96 11/22/19 21:57 Constitutional: Yes: Well Nourished, Calm Eyes: Yes: WNL HENT: Yes: WNL Neck: Yes: WNL Cardiovascular: Yes: Pulse Irregular, S1, S2 Respiratory: Yes: Diminished Gastrointestinal: Yes: Normal Bowel Sounds, Soft Extremities: Yes: WNL Edema: Yes Labs: INR Assessment/Plan Assessment/Plan Acute on Chronic Diastolic Heart Failure clinically improving Atrial Fibrillation COPD PAD DM - continue lasix - monitor urine output, creatinine - daily weights - O2 to keep SpO2 >90% - rate controlled - anticoagulation DR YEBOAH
[2019-11-23 07:51] LABS: BASO % 0.3 % (0-2.0); EOS % 4.1 % (0-4.5); HEMATOCRIT 46.3 % (35.4-49); HEMOGLOBIN 15.6 GM/dL (11.7-16.9); LYMPH % 23.1 % (8-40); MCH 32.2 pg (25.7-33.7); MCHC 33.6 g/dl (32.0-35.9); MEAN CELL VOLUME 95.8 fl (80-96); MEAN PLT VOLUME 12.8 fl (7.5-11.1); MONO % 13.5 % (3.8-10.2); PLATELET COUNT 115 K/MM3 (134-434); RBC 4.83 M/mm3 (4.00-5.60); RDW 14.2 % (11.9-15.9); WHITE BLOOD COUNT 7.4 K/mm3 (4.0-10.0)
--- NOTE | 2019-11-23 08:04 | PN ---
Progress Note, Physician Chief Complaint: Pt A&Ox3; ambulates in room; no chest pain; +dsypnea on mild exertion. History of Present Illness: Mr. Pulido is an 84 yr old man with PMHx diastolic CHF, HTN, AF, HTN, DM, PAD-->left LE stent 2016 (Dr. Kendrick), COPD, overweight, sedentary, now admitted with shortness of breath x several days. H Stress treadmill MIBI 12/2016 at [facility]: no myocardial ischemia; poor exercise capacity (walked only 1:41 minutes using Peter; test stopped due to leg fatigue, and HR 162 bpm. ECHO Nov 16, 2019 1. This was a technically difficult study with suboptimal views due to lung tissue interference (COPD). 2. Overall left ventricular systolic function is normal with an EF between 60 - 65 %. 3. Mitral Doppler inflow pattern suggests diastolic filling abnormality. 4. Mild basal ventricular septal hypertrophy. 5. Aortic valve is trileaflet and is moderately calcified. 6. There is moderate aortic valve sclerosis without stenosis. 7. There is mild aortic regurgitation. 8. The mitral valve leaflets are moderately thickened. 9. Moderate mitral annular calcification present. 10. Mild mitral regurgitation is present. 11. Moderate tricuspid regurgitation present with right ventricle systolic pressure of 53.4 mmHg, indicative of moderate to severe pulmonary hypertension. 12. Moderately thickened tricuspid valve leaflets. 13. Mild pulmonic regurgitation. . . . . . . . . . . . . . . . . . . . . . . . . . . . . . . . . . . . . . . . . . . . . . . . . . . . . . . . . . . . . . . . . . . . . . . . . . . . . . . . . . . . . . . - History Source History Provided By: Medical Record - Past Medical History - Current Medication List Current Medications: Active Medications Albuterol Sulfate (Ventolin 0.083% Nebulizer Soln -) 1 amp NEB Q4H PRN PRN Reason: SHORT OF BREATH/WHEEZING Albuterol Sulfate (Ventolin Hfa Inhaler -) 2 puff IH Q4H PRN PRN Reason: SHORTNESS OF BREATH Apixaban (Eliquis -) 5 mg PO BID [facility] Last Admin: 11/22/19 21:54 Dose: 5 mg Documented by: Diltiazem HCl (Cardizem -) 240 mg PO DAILY [facility] Last Admin: 11/22/19 12:35 Dose: 240 mg Documented by: Furosemide (Lasix Injection -) 40 mg IVPUSH BID@0600,1400 [facility] Last Admin: 11/23/19 06:06 Dose: 40 mg Documented by: Influenza Virus Vaccine (Flulaval Quad [id number] Syr) 60 mcg IM .ONCE ONE Stop: 11/22/19 16:29 Insulin Aspart (Novolog Vial Sliding Scale -) 1 vial SQ [facility]; Protocol Last Admin: 11/23/19 06:06 Dose: Not Given Documented by: Montelukast Sodium (Singulair -) 5 mg PO HS [facility] Last Admin: 11/22/19 21:59 Dose: 5 mg Documented by: Non-Formulary Medication (Ipratropium/Albuterol Sulfate) 4 gm IH DAILY [facility] Tamsulosin HCl (Flomax -) 0.8 mg PO DAILY@0830 [facility] Last Admin: 11/22/19 08:30 Dose: 0.8 mg Documented by: - Objective Vital Signs: Vital Signs Temperature 98.0 F 11/23/19 06:00 Pulse Rate 80 11/23/19 06:00 Respiratory Rate 18 11/23/19 06:00 Blood Pressure 144/71 11/23/19 06:00 O2 Sat by Pulse Oximetry (%) 96 11/22/19 21:57 Labs: INR, PTT INR 1.39 (0.83-1.09) H 11/21/19 16:17 Assessment/Plan 84 yr old man with PMHx diastolic CHF, HTN, AF, HTN, DM, PAD-->left LE stent 2016 (Dr. Kendrick), COPD, overweight, sedentary, now admitted with shortness of breath x several days. TNI < 0.02 EKG: AF with controlled VR CXR: minimal congestive changes Rec: COVID pending. Continue diltiazem for HR and BP control On apixaban for anticoagulation (AF) F/u TSH and lipids f/u BUN/Cr, electrolytes, daily weight, Is and Os.
[2019-11-23 08:05] LABS: ALBUMIN 3.8 g/dl (3.4-5.0); BILIRUBIN,TOTAL 0.9 mg/dL (0.2-1); BLOOD UREA NITROGEN 21.1 mg/dL (7-18); CALCIUM 8.9 mg/dL (8.5-10.1); CREATININE 1.2 mg/dL (0.55-1.3); PHOSPHOROUS 2.9 mg/dL (2.5-4.9); POTASSIUM 4.6 mmol/L (3.5-5.1); TOT PROT 7.8 g/dl (6.4-8.2)
--- NOTE | 2019-11-23 08:41 | PN ---
Progress Note, Physician History of Present Illness: SOB PMH Stress treadmill MIBI 12/2016 at [facility]: no myocardial ischemia; poor exercise capacity (walked only 1:41 minutes using Peter; test stopped due to leg fatigue, and HR 162 bpm. ECHO 12/2016: limited study: normal LVEF. Ongoing medical problems PAD-->left LE stent 10/[address] Hans Kendrick AF HTN DM (was on Metformin; now diet-controlled) obesity; r/o sleep apnea sedentary COPD (diagnosed 12/2016); former heavy cigarette smoker, and worked near [employer] in the months after 10/25 ECHO Nov 16, 2019 1. This was a technically difficult study with suboptimal views due to lung tissue interference (COPD). 2. Overall left ventricular systolic function is normal with an EF between 60 - 65 %. 3. Mitral Doppler inflow pattern suggests diastolic filling abnormality. 4. Mild basal ventricular septal hypertrophy. 5. Aortic valve is trileaflet and is moderately calcified. 6. There is moderate aortic valve sclerosis without stenosis. 7. There is mild aortic regurgitation. 8. The mitral valve leaflets are moderately thickened. 9. Moderate mitral annular calcification present. 10. Mild mitral regurgitation is present. 11. Moderate tricuspid regurgitation present with right ventricle systolic pressure of 53.4 mmHg, indicative of moderate to severe pulmonary hypertension. 12. Moderately thickened tricuspid valve leaflets. 13. Mild pulmonic regurgitation. Date 11/21/2019 17:07 Electronically signed off by: Will Cisneros M.D., F.A.C.C. . . . . . . . . . . . . . . . . . . . . . . . . . . . . . . . . . . . . . . . . . . . . . . . . . . . . . . . . . . . . . . . . . . . . . . . . . . . . . . . . . . . . . . - Current Medication List Current Medications: Active Medications Albuterol Sulfate (Ventolin 0.083% Nebulizer Soln -) 1 amp NEB Q4H PRN PRN Reason: SHORT OF BREATH/WHEEZING Albuterol Sulfate (Ventolin Hfa Inhaler -) 2 puff IH Q4H PRN PRN Reason: SHORTNESS OF BREATH Apixaban (Eliquis -) 5 mg PO BID LARRY Last Admin: 11/22/19 21:54 Dose: 5 mg Documented by: Diltiazem HCl (Cardizem -) 240 mg PO DAILY [facility] Last Admin: 11/22/19 12:35 Dose: 240 mg Documented by: Furosemide (Lasix Injection -) 40 mg IVPUSH BID@0600,1400 [facility] Last Admin: 11/23/19 06:06 Dose: 40 mg Documented by: Influenza Virus Vaccine (Flulaval Quad [id number] Syr) 60 mcg IM .ONCE ONE Stop: 11/22/19 16:29 Insulin Aspart (Novolog Vial Sliding Scale -) 1 vial SQ [facility]; Protocol Last Admin: 11/23/19 06:06 Dose: Not Given Documented by: Montelukast Sodium (Singulair -) 5 mg PO HS [facility] Last Admin: 11/22/19 21:59 Dose: 5 mg Documented by: Non-Formulary Medication (Ipratropium/Albuterol Sulfate) 4 gm IH DAILY [facility] Tamsulosin HCl (Flomax -) 0.8 mg PO DAILY@0830 [facility] Last Admin: 11/22/19 08:30 Dose: 0.8 mg Documented by: - Objective Vital Signs: Vital Signs Temperature 98.0 F 11/23/19 06:00 Pulse Rate 80 11/23/19 06:00 Respiratory Rate 18 11/23/19 06:00 Blood Pressure 144/71 11/23/19 06:00 O2 Sat by Pulse Oximetry (%) 96 11/22/19 21:57 Eyes: Yes: WNL, Conjunctiva Clear, EOM Intact HENT: Yes: WNL, Atraumatic, Normocephalic Neck: Yes: WNL, Supple, Trachea Midline Cardiovascular: Yes: Pulse Irregular Respiratory: Yes: WNL, Regular, CTA Bilaterally Gastrointestinal: Yes: WNL, Normal Bowel Sounds Genitourinary: Yes: WNL Musculoskeletal: Yes: WNL Extremities: Yes: WNL Edema: No Integumentary: Yes: WNL Neurological: Yes: WNL, Alert, Oriented ...Motor Strength: WNL Psychiatric: Yes: WNL Labs: CBC, BMP 11/23/19 06:50 11/23/19 06:50 INR, PTT INR 1.39 (0.83-1.09) H 11/21/19 16:17 Assessment/Plan 84 yr old man with PMHx diastolic CHF, HTN, AF, HTN, DM, PAD-->left LE stent 2017 (Dr. Kendrick), COPD, overweight, sedentary, now admitted with shortness of breath x several days. TNI < 0.02 EKG: AF with controlled VR CXR: minimal congestive changes Rec: COVID pending. Continue diltiazem for HR and BP control On apixaban for anticoagulation (AF) F/u TSH and lipids f/u BUN/Cr, electrolytes, daily weight, Is and Os. Cardiac mendez stable, change Lasix to PO . Will f/u as outpatient.
[2019-11-23] MEDS: TAMSULOSIN HCL 0.4 MG CAP PO SCH (09:35)
[2019-11-23] MEDS: APIXABAN 5 MG TABLET PO SCH ×2 (09:36→10:46)
[2019-11-23] MEDS: dilTIAZem HCL 60 MG TABLET PO SCH ×2 (09:36→10:46)
[2019-11-23 13:47] VITALS: BP 125/61; PULSE 73; TEMP 98.2
[2019-11-23] MEDS ORDERED: ALBUTEROL SO4 0.083% IH SOL 2.5 MG/3 ML VIAL.NEB. NEB PRN (14:31)
--- NOTE | 2019-11-23 15:23 | PN ---
Teaching Attending Note Name of Resident: Trevor Wong ATTENDING PHYSICIAN STATEMENT I saw and evaluated the patient. I reviewed the resident's note and discussed the case with the resident. I agree with the resident's findings and plan as documented. SUBJECTIVE: Patient is feeling better with NAD , wants to go home. NAD, no shortness of breath, on 5liter oxygen at home OBJECTIVE: Vital Signs Temperature 98.2 F 11/23/19 13:26 Pulse Rate 73 11/23/19 13:26 Respiratory Rate 19 11/23/19 13:26 Blood Pressure 125/61 11/23/19 13:26 O2 Sat by Pulse Oximetry (%) 93 L 11/23/19 13:26 PE: per resident's note LE: trace edema now CBCD WBC 7.4 K/mm3 (4.0-10.0) 11/23/19 06:50 RBC 4.83 M/mm3 (4.00-5.60) 11/23/19 06:50 Hgb 15.6 GM/dL (11.7-16.9) 11/23/19 06:50 Hct 46.3 % (35.4-49) 11/23/19 06:50 MCV 95.8 fl (80-96) 11/23/19 06:50 MCHC 33.6 g/dl (32.0-35.9) 11/23/19 06:50 RDW 14.2 % (11.9-15.9) 11/23/19 06:50 Plt Count 115 K/MM3 (134-434) L 11/23/19 06:50 MPV 12.8 fl (7.5-11.1) H 11/23/19 06:50 CMP Sodium 139 mmol/L (136-145) 11/23/19 06:50 Potassium 4.6 mmol/L (3.5-5.1) 11/23/19 06:50 Chloride 96 mmol/L (98-107) L 11/23/19 06:50 Carbon Dioxide 40 mmol/L (21-32) H 11/23/19 06:50 Anion Gap 3 MMOL/L (8-16) L 11/23/19 06:50 BUN 21.1 mg/dL (7-18) H 11/23/19 06:50 Creatinine 1.2 mg/dL (0.55-1.3) 11/23/19 06:50 Random Glucose 125 mg/dL (74-106) H 11/23/19 06:50 Calcium 8.9 mg/dL (8.5-10.1) 11/23/19 06:50 Total Bilirubin 0.9 mg/dL (0.2-1) 11/23/19 06:50 AST 15 U/L (15-37) 11/23/19 06:50 ALT 17 U/L (13-61) 11/23/19 06:50 Alkaline Phosphatase 66 U/L (45-117) 11/23/19 06:50 Total Protein 7.8 g/dl (6.4-8.2) 11/23/19 06:50 Albumin 3.8 g/dl (3.4-5.0) 11/23/19 06:50 CARDIAC ENZYMES Creatine Kinase 108 U/L (26-308) 11/21/19 16:17 Troponin I < 0.02 ng/ml (0.00-0.05) 11/21/19 16:17 Current Medications Generic Name Dose Route Start Last Admin Trade Name Freq PRN Reason Stop Dose Admin Albuterol Sulfate 1 amp 11/23/19 14:31 Ventolin 0.083% Nebulizer Soln - NEB Q4H PRN SHORT OF BREATH/WHEEZING Apixaban 5 mg 11/21/19 22:00 11/23/19 10:46 Eliquis - PO 5 mg BID LARRY Administration Diltiazem HCl 240 mg 11/22/19 11:45 11/23/19 10:46 Cardizem - PO 120 mg DAILY LARRY Administration Furosemide 40 mg 11/22/19 06:00 11/23/19 13:48 Lasix Injection - IVPUSH 40 mg BID@0600,1400 LARRY Administration Influenza Virus Vaccine 60 mcg 11/23/19 16:00 Flulaval Quad [id number] Syr IM 11/23/19 16:01 .ONCE ONE Insulin Aspart 1 vial 11/22/19 07:00 11/23/19 11:57 Novolog Vial Sliding Scale - SQ Not Given ACHS LARRY Protocol Montelukast Sodium 5 mg 11/21/19 22:00 11/22/19 21:59 Singulair - PO 5 mg HS LARRY Administration Non-Formulary Medication 4 gm 10/08/20 10:00 Ipratropium/Albuterol Sulfate IH DAILY [facility] Tamsulosin HCl 0.8 mg 11/22/19 08:30 11/23/19 09:35 Flomax - PO 0.8 mg DAILY@0830 [facility] Administration Home Medications Medication Instructions Recorded Apixaban [Eliquis] 5 mg PO BID 09/14/16 Tamsulosin HCl 0.8 mg PO HS 09/14/16 Ipratropium/Albuterol Sulfate 4 gm IH DAILY 10/02/18 [Combivent Respimat 20-100 Mcg] Albuterol 0.083% Nebulizer Vane 1 amp NEB Q4H PRN amp 10/04/18 [Ventolin 0.083% Nebulizer Soln -] Diltiazem Cd [Cardizem Cd -] 2 tab PO DAILY 02/26/19 Furosemide [Lasix -] 40 mg PO DAILY 02/26/19 Montelukast Na [Singulair -] 5 mg PO HS 02/26/19 Budesonide/Formeterol Fumarate 2 inh PO BID 11/22/19 [SYMBICORT 160/4.5mcg -] CXR: minimal congestive changes, sclerotic knob, slightly prominent saúl and enlarged heart. soft tissues are intact. CT scan of the head without IV contrast: moderate atrophy, no gross evidence of a focal Intracranial lesion or hemorrhage is seen. ECHO (11/16/2019): EF 60-65% Diastolic filling abnormality. Mild basal ventricular septal hypertorphy. Mild AR, Mild MR, Moderate TR. RV sys presure 53.4 indicative of moderate to severe Pulm HTN. Mild Pulmonic regurg. ASSESSMENT AND PLAN: This patient is an 84yom with Pmhx of atrial fibrillation (on Eliquis at home) , DM, PAD (left LE stent 10/2016) and COPD presented with SoB and bilateral lower extremity swelling x 1 month. As per patient has not taken his home lasix for at least 1 month. was admitted for acute on chronic diastolic CHF. #Acute on chronic diastolic CHF: BNP 506, cardio consulted, s/p IV Lasix 40mg IV Bid , now lasix 40mg po daily on dc, since patient stopped taking his home lasix for a while. #Hx of COPD stable: continue -nebs, Singulair 5mg daily , pulmonary consult , maintain o2 sat >90% , conitnue home oxygen #Acute Change of mental status with elevated ammonia level due to TOXIC METABOLIC ENCEPHALOPATHY , Ammonia level is trending down, improved , comfortable now #A-FIBRILLATION on ELIQUIS will continue , cardizem 240mg CD, Ptn non-compliant with medication , continue home meds # PAD with Left LE stent placed 10/[address] Hans Kendrick #T2DM on SS with coverage , A1c is 6.7 , continue home meds #bph CONTINUE Tamulosin 0.8mg hs home dose continue #e/o COVID DVT px: SCDs, Elliquis continue all the home meds. dc patient home.
--- NOTE | 2019-11-23 15:33 | DS ---
Physical Exam: SUBJECTIVE: Patient seen and examined this morning, in no acute distress, denies any CP, SoB, states LE swelling decreased. Wants to go home. OBJECTIVE: Vital Signs Period Temp Pulse Resp BP Sys/Redd Pulse Ox Last 24 Hr 97.6 F-98.4 F 57-80 18-19 125-149/46-71 93-96 PHYSICAL EXAM GENERAL: The patient is awake, alert, and fully oriented, in no acute distress. HEAD: Normal with no signs of trauma. EYES: PERRL, extraocular movements intact, sclera anicteric, conjunctiva clear. No ptosis. ENT: Ears normal, nares patent, oropharynx clear without exudates, moist mucous membranes. NECK: Trachea midline, full range of motion, supple. LUNGS: Wheezing heard bilaterally, no crackles, no accessory muscle use. HEART: Afib, no murmurs. ABDOMEN: Soft, nontender, nondistended, normoactive bowel sounds UPPER EXTREMITIES: 2+ pulses, warm, well-perfused, no edema. LOWER EXTREMITIES: Edema greatly decreased s/p diuresis NEUROLOGICAL: Normal speech, gait not observed. PSYCH: Normal mood, normal affect, mentation is questionable SKIN: Warm, dry, normal turgor, no rashes or lesions noted, except as otherwise noted LABS Laboratory Results - last 24 hr 11/22/19 11/22/19 11/23/19 02:13 17:07 06:00 WBC RBC Hgb Hct MCV MCH MCHC RDW Plt Count MPV Absolute Neuts (auto) Neutrophils % Lymphocytes % Monocytes % Eosinophils % Basophils % Nucleated RBC % Sodium Potassium Chloride Carbon Dioxide Anion Gap BUN Creatinine Est GFR (CKD-EPI)AfAm Est GFR (CKD-EPI)NonAf POC Glucometer 148 145 Random Glucose Calcium Phosphorus Magnesium Total Bilirubin AST ALT Alkaline Phosphatase Ammonia Total Protein Albumin Triglycerides Cholesterol Total LDL Cholesterol HDL Cholesterol TSH COVID-19 (THADDEUS) Not detected 11/23/19 11/23/19 11/23/19 06:50 06:50 06:50 WBC 7.4 RBC 4.83 Hgb 15.6 Hct 46.3 MCV 95.8 MCH 32.2 MCHC 33.6 RDW 14.2 Plt Count 115 L MPV 12.8 H Absolute Neuts (auto) 4.4 Neutrophils % 59.0 Lymphocytes % 23.1 Monocytes % 13.5 H Eosinophils % 4.1 Basophils % 0.3 Nucleated RBC % 0 Sodium 139 Potassium 4.6 Chloride 96 L Carbon Dioxide 40 H Anion Gap 3 L BUN 21.1 H Creatinine 1.2 Est GFR (CKD-EPI)AfAm 63.97 Est GFR (CKD-EPI)NonAf 55.20 POC Glucometer Random Glucose 125 H Calcium 8.9 Phosphorus 2.9 Magnesium 2.0 Total Bilirubin 0.9 AST 15 ALT 17 Alkaline Phosphatase 66 Ammonia 24.80 Total Protein 7.8 Albumin 3.8 Triglycerides 74 Cholesterol 148 Total LDL Cholesterol 98 HDL Cholesterol 45 TSH 3.10 D COVID-19 (THADDEUS) 11/23/19 11:55 WBC RBC Hgb Hct MCV MCH MCHC RDW Plt Count MPV Absolute Neuts (auto) Neutrophils % Lymphocytes % Monocytes % Eosinophils % Basophils % Nucleated RBC % Sodium Potassium Chloride Carbon Dioxide Anion Gap BUN Creatinine Est GFR (CKD-EPI)AfAm Est GFR (CKD-EPI)NonAf POC Glucometer 110 Random Glucose Calcium Phosphorus Magnesium Total Bilirubin AST ALT Alkaline Phosphatase Ammonia Total Protein Albumin Triglycerides Cholesterol Total LDL Cholesterol HDL Cholesterol TSH COVID-19 (THADDEUS) HOSPITAL COURSE: Date of Admission:11/23/19 CXR: minimal congestive changes, sclerotic knob, slightly prominent saúl and enlarged heart. soft tissues are intact. CT scan of the head without IV contrast: moderate atrophy, no gross evidence of a focal Intracranial lesion or hemorrhage is seen. ECHO (11/16/2019): EF 60-65% Diastolic filling abnormality. Mild basal ventricular septal hypertorphy. Mild AR, Mild MR, Moderate TR. RV sys presure 53.4 indicitive of moderate to severe Pulm HTN. Mild Pulmonic regurg. Date of Discharge: 11/23/19 84 yo M w/ PMHx of CHF, atrial fibrillation (unsure if compliant w/ eliquis), diabetes mellitus, PAD and COPD presented for shortness of breath. Ptn stated he had stopped taking his lasix x1 month ago. He saw Dr. Cisneros last Tuesday in the office and underwent an echocardiogram which showed an EF of 60-65% and moderate tricuspid regurgitation. Patient stated since that visit he has started to feel sob Patient also c/o lower extremity edema. He reports he felt clammy and weak. Daughter at bedside also reported signs of confusion. He denied F/C, CP, N/V/D. ER course notable for: 1.)EKG- atrial fibrillation heart rate 80's 2.)CT scan of head- moderate atrophy, no acute intracranial bleed 3.) Elevated BNP 506, normal troponin 4.) CXR: minimal congestive changes 5.) Elevated ammonia level (54) 6.) Thrombocytopenia (platelets 106,000) 7.)IV Lasix x1 Dose Ptn was admitted to the floors for acute on chronic diastolic CHF exacerbation 2/2 medication non-compliance, as well as AMS 2/2 Acute Toxic Metabolic encephalopathy 2/2 Ammonemia. Cardiology was consulted. Pulm was consulted. Ptn was restarted on eliquis for his Afib, lasix, and ammonia levels were trended until normal. Home dose of Diltiazem was also continued as per Cardiology. Ptn's edema greatly improved 2/2 diuresis, and swelling resolved. At the time of DC, patient was medically stable. Minutes to complete discharge: 36 Discharge Summary Problems reviewed: Yes Reason For Visit: SHORT OF BREATH ON EXERTION, ACUTE ON CHRONIC Current Active Problems Acute on chronic diastolic CHF (congestive heart failure) (Chronic) Orthopnea (Chronic) Condition: Stable - Instructions Diet, Activity, Other Instructions: YOUR VISIT You came to the hospital because you were experiencing swelling of your legs and shortness of breath for 1 month after not having taken your medication. You were admitted to the hospital for a condition called "heart failure," and you were given medication for care of these symptoms. You are now stable and may return home. 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 MEDICATIONS -Please continue to take your home medications as prescribed. -It is very important that you take your medication as prescribed to prevent any further problems. Please buy a daily pill box for your medication so that you do not miss a dose. ADDITIONAL CARE Please make an appointment to see Dr. Alessandro Cruz (Primary Care) for evaluation after your recent hospitalization. Please make an appointment to see Dr. Kwaku Atwood (Cardiology) for evaluation of your heart failure and atrial fibrillation Please make an appointment to see Dr. Remington Barron (Pulmonology) for evaluation of your lung disease Please make an appointment to see Dr. Tim Bartlett (ENT) for evaluation of your sinuses. ADDITIONAL INFORMATION Please call 911 or come directly to the emergency department if you experience recurrence of the symptoms that brought you to the hospital, unusual headache, vision change, shortness of breath, chest pain, numbness, tingling, loss of alertness/awareness, loss of function, unusual bleeding or any alarming symptoms. Referrals: Tim Bartlett MD [Staff Physician] - 1 Week Kwaku Atwood MD [Staff Physician] - 1 Week Alessandro Cruz MD [Primary Care Provider] - 2 Weeks Remington Barron MD, MD [Staff Physician] - 1 Week Disposition: HOME - Home Medications Comprehensive Discharge Medication List: Ambulatory Orders Apixaban [Eliquis] 5 mg PO BID 09/14/16 Tamsulosin HCl 0.8 mg PO HS 09/14/16 Ipratropium/Albuterol Sulfate [Combivent Respimat 20-100 Mcg] 4 gm IH DAILY 10/02/18 Albuterol 0.083% Nebulizer Vane [Ventolin 0.083% Nebulizer Soln -] 1 amp NEB Q4H PRN amp 10/04/18 Diltiazem Cd [Cardizem Cd -] 2 tab PO DAILY 02/26/19 Furosemide [Lasix -] 40 mg PO DAILY 02/26/19 Montelukast Na [Singulair -] 5 mg PO HS 02/26/19 Budesonide/Formeterol Fumarate [SYMBICORT 160/4.5mcg -] 2 inh PO BID 11/22/19 This patient is new to me today: No Emergency Visit: No Critical Care patient: No - Discharge Referral Referred to [facility] No ATTENDING PHYSICIAN STATEMENT I saw and evaluated the patient. I reviewed the resident's note and discussed the case with the resident. I agree with the resident's findings and plan as documented. SUBJECTIVE: OBJECTIVE: ASSESSMENT AND PLAN:
[2019-11-23] MEDS ORDERED: ACETAMINOPHEN 325 MG TABLET (FP) PO ONE (15:34)
[2019-11-23] MEDS ORDERED: FLU VACCINE (FLULAVAL) PF 60 MCG/0.5 ML SYRINGE 2020-2021 IM ONE (16:00)
== END 2019-11-23 18:49 | disposition home or self-care (01) ==
LOC: JER 16:26 → JERBED 20:09 → INTOOBSV 20:09 → UNDOADMOB 20:09 → JERBED 11-22 15:50 → J4S 11-22 15:50 → JERBED 11-23 13:26
PROVIDERS: ADMIT Hospitalist; ATTEND Internal Medicine
PROC: 3E033GC Introduction of Other Therapeutic Substance into Peripheral Vein, Percutaneous Approach (ICD-10-PCS; principal; 2019-11-23)
PROC: 3E0234Z Introduction of Serum, Toxoid and Vaccine into Muscle, Percutaneous Approach (ICD-10-PCS; 2019-11-23)
DX: I48.91 Unspecified atrial fibrillation (principal); E11.9 Type 2 diabetes mellitus without complications; I73.9 Peripheral vascular disease, unspecified; Z79.01 Long term (current) use of anticoagulants; Z87.891 Personal history of nicotine dependence; R60.0 Localized edema; J44.9 Chronic obstructive pulmonary disease, unspecified; Z88.1 Allergy status to other antibiotic agents; Z88.8 Allergy status to other drugs, medicaments and biological substances; I10 Essential (primary) hypertension; E66.3 Overweight; Z68.28 Body mass index [BMI] 28.0-28.9, adult; Z72.3 Lack of physical exercise; Z23 Encounter for immunization
CPT/HCPCS: 36415; 70450-TC; 71045-TC-FY; 80048; 80053; 80061; 82140; 82550; 82803; 82962; 83036; 83605; 83721; 83735; 83880; 84100; 84443; 84484; 85025; 85027; 85610; 85730; 93005; 93010; 96372; 96374; 96376; 97116-GP; 97161-GP; 99285-25; C9803; G0378; Q2036; U0003

== ENCOUNTER 2020-08-22 11:38 | Emergency (ER) | payer OTHER ==
[2020-08-22 11:43] VITALS: BMI 39.1
[2020-08-22] MEDS ORDERED: LIDOCAINE 5% TOPICAL PATCH TP ONE ×3 (12:44→14:50)
[2020-08-22] MEDS ORDERED: METHOCARBAMOL 750 MG TABLET PO SCH (13:00)
[2020-08-22] MEDS ORDERED: METHOCARBAMOL 500 MG TABLET ONE (13:07)
[2020-08-22] MEDS ORDERED: LIDOCAINE 5% TOPICAL PATCH ONE ×3 (13:09→14:57)
[2020-08-22] MEDS ORDERED: ACETAMINOPHEN 1000 MG/100 ML VIAL (NON FORMULARY) IVPB ONE (14:50)
[2020-08-22] MEDS ORDERED: ACETAMINOPHEN INJECTION 100 ML IVPB ONE (14:54)
[2020-08-22 17:17] VITALS: BP 134/86; PULSE 89; TEMP 98.3
[2020-08-22] MEDS ORDERED: LIDOCAINE PATCH REMOVAL MC SCH ×2 (22:00)
[2020-08-22] MEDS ORDERED: LIDOCAINE PATCH REMOVAL MC ONE (22:00)
== END 2020-08-22 17:17 | disposition home or self-care (01) ==
LOC: JER 11:38
PROC: 3E0333Z Introduction of Anti-inflammatory into Peripheral Vein, Percutaneous Approach (ICD-10-PCS; principal; 2020-08-22)
DX: M48.02 Spinal stenosis, cervical region (principal)
CPT/HCPCS: 72125-TC; 96374; 99284-25; J0131

== ENCOUNTER 2020-08-24 05:59 | Emergency (ER) | payer OTHER ==
[2020-08-24 06:50] VITALS: BMI 31.0
[2020-08-24 08:26] VITALS: BP 121/52; PULSE 68; TEMP 98
[2020-08-24] MEDS ORDERED: LIDOCAINE 5% TOPICAL PATCH TP ONE (09:01)
[2020-08-24] MEDS ORDERED: METHOCARBAMOL 500 MG TABLET PO ONE (09:01)
[2020-08-24] MEDS ORDERED: ACETAMINOPHEN 500 MG TABLET (FP) PO ONE (09:01)
[2020-08-24] MEDS ORDERED: ACETAMINOPHEN 325 MG TABLET (FP) ONE (09:16)
[2020-08-24] MEDS ORDERED: LIDOCAINE 5% TOPICAL PATCH ONE (09:16)
[2020-08-24] MEDS ORDERED: METHOCARBAMOL 500 MG TABLET ONE (09:16)
[2020-08-24] MEDS ORDERED: morphine SULFATE 4 MG/ML VIAL IM ONE (09:38)
[2020-08-24] MEDS ORDERED: morphine SULFATE 4 MG/ML VIAL ONE (09:40)
[2020-08-24] MEDS ORDERED: LIDOCAINE PATCH REMOVAL MC SCH (22:00)
== END 2020-08-24 12:13 | disposition home or self-care (01) ==
LOC: JER 05:59
PROC: 3E023NZ Introduction of Analgesics, Hypnotics, Sedatives into Muscle, Percutaneous Approach (ICD-10-PCS; principal; 2020-08-24)
DX: M54.2 Cervicalgia (principal)
CPT/HCPCS: 96372; 99284-25

== ENCOUNTER 2022-05-30 13:09 | Inpatient (IN) | payer OTHER ==
[2022-05-30] MEDS ORDERED: methylPREDNISolone NA SUCC 125 MG/2 ML VIAL IVPUSH ONE (14:14)
[2022-05-30] MEDS ORDERED: ALBUTEROL SO4 2.5/IPRATROPIUM 0.5 INH SOL 3 ML VIAL.NEB. NEB ONE ×2 (14:33→14:37)
[2022-05-30] MEDS ORDERED: methylPREDNISolone NA SUCC 125 MG/2 ML VIAL ONE (14:33)
[2022-05-30] MEDS: ALBUTEROL SO4 2.5/IPRATROPIUM 0.5 INH SOL 3 ML VIAL.NEB. NEB SCH ×3 (14:34→15:32)
[2022-05-30 14:47] LABS: VENOUS BASE EXCESS 2.6 mmol/L (-2-2); VENOUS PCO2 52.1 mmHg (38-52); VENOUS PH 7.366 (7.310-7.410)
[2022-05-30 14:52] LABS: BASO % 0.3 % (0-2.0); EOS % 0.5 % (0-4.5); HEMATOCRIT 37.5 % (35.4-49); HEMOGLOBIN 12.9 GM/dL (11.7-16.9); LYMPH % 14.4 % (8-40); MCH 31.7 pg (25.7-33.7); MCHC 34.4 g/dl (32.0-35.9); MEAN CELL VOLUME 92.2 fl (80-96); MEAN PLT VOLUME 12.2 fl (7.5-11.1); NEUT % 71.8 % (42.8-82.8); PLATELET COUNT 175 10^3/uL (134-434); RBC 4.07 M/mm3 (4.00-5.60); RDW 14.2 % (11.9-15.9); WHITE BLOOD COUNT 10.2 K/mm3 (4.0-10.0)
[2022-05-30 14:57] LABS: INR 1.86 (0.83-1.09); PROTHROMBIN TIME (PATIENT) 21.4 SEC (9.7-13.0)
[2022-05-30 15:00] LABS: ACTIVATED PTT 32.4 SECONDS (25.2-36.5)
[2022-05-30 15:16] LABS: CALCIUM 8.3 mg/dL (8.5-10.1)
[2022-05-30 15:17] LABS: ALBUMIN 2.7 g/dl (3.4-5.0); BLOOD UREA NITROGEN 14.1 mg/dL (7-18)
[2022-05-30 15:21] LABS: BILIRUBIN,TOTAL 0.6 mg/dL (0.2-1)
[2022-05-30] MEDS ORDERED: CEFTRIAXONE 1,000 MG in DEXTROSE 5%-WATER - 50 ML IVPB ONE (15:25)
[2022-05-30] MEDS ORDERED: DOXYCYCLINE INJECTION 100 MG in DEXTROSE 5%-WATER 100 ML IVPB ONE (15:26)
[2022-05-30 15:27] LABS: LACTIC ACID 3.3 mmol/L (0.4-2.0)
[2022-05-30] MEDS ORDERED: DOXYCYCLINE HYCLATE 100 MG VIAL ONE (15:36)
[2022-05-30] MEDS ORDERED: CEFTRIAXONE 1 GM/50 ML BAG ONE (15:36)
[2022-05-30] MEDS ORDERED: SODIUM CHLORIDE 0.9% 1000 ML INFUS.BAG IV ONE (15:45)
[2022-05-30 17:33] VITALS: BMI 33.3
[2022-05-30] MEDS ORDERED: ALBUTEROL SO4 2.5/IPRATROPIUM 0.5 INH SOL 3 ML VIAL.NEB. NEB PRN (21:31)
[2022-05-30] MEDS ORDERED: ACETAMINOPHEN 325 MG TABLET (FP) PO PRN (21:31)
[2022-05-30] MEDS: APIXABAN 5 MG TABLET PO SCH ×2 (23:15→23:17)
[2022-05-30] MEDS: TAMSULOSIN HCL 0.4 MG CAP PO SCH ×2 (23:15→23:17)
[2022-05-31] MEDS: TAMSULOSIN HCL 0.4 MG CAP PO SCH ×2 (09:11→21:19)
[2022-05-31] MEDS: CEFTRIAXONE 1 GM in DEXTROSE 5%-WATER - 50 ML IVPB SCH (09:11)
[2022-05-31] MEDS: APIXABAN 5 MG TABLET PO SCH ×2 (09:11→21:19)
[2022-05-31] MEDS: FLUTICASONE/UMECLIDIN/VILANTER(100-62.5-25 TRELEGY ELLIPTA) INAHLER IH SCH (09:12)
[2022-05-31 11:09] LABS: HEMATOCRIT 38.5 % (35.4-49); HEMOGLOBIN 13.4 GM/dL (11.7-16.9); MCH 32.1 pg (25.7-33.7); MCHC 34.8 g/dl (32.0-35.9); MEAN CELL VOLUME 92.3 fl (80-96); MEAN PLT VOLUME 12.1 fl (7.5-11.1); PLATELET COUNT 207 10^3/uL (134-434); RBC 4.18 M/mm3 (4.00-5.60); RDW 14.4 % (11.9-15.9); WHITE BLOOD COUNT 11.7 K/mm3 (4.0-10.0)
[2022-05-31 11:30] LABS: BLOOD UREA NITROGEN 17.9 mg/dL (7-18); CALCIUM 8.5 mg/dL (8.5-10.1)
[2022-05-31 11:31] LABS: ALBUMIN 2.6 g/dl (3.4-5.0)
[2022-05-31 11:33] LABS: LACTIC ACID 3.3 mmol/L (0.4-2.0)
[2022-05-31 11:34] LABS: BILIRUBIN,TOTAL 0.4 mg/dL (0.2-1); TOT PROT 7.1 g/dl (6.4-8.2)
[2022-05-31 12:41] LABS: ANISOCYTOSIS 0; HELMET CELLS 0; HOWELL-JOLLY BODIES 0; MACROCYTOSIS 0; OVALOCYTE 0; ROULEAU 0; SICKELED CELLS 0; TARGET CELLS 0; TEAR DROP CELLS 0; TOXIC GRANULATION 0
[2022-05-31] MEDS: LACTATED RINGERS SOLUTION 1,000 ML/1,000 ML INFUS.BAG IV SCH (17:25)
[2022-06-01] MEDS: LACTATED RINGERS SOLUTION 1,000 ML/1,000 ML INFUS.BAG IV SCH (05:09)
[2022-06-01] MEDS: APIXABAN 5 MG TABLET PO SCH ×2 (09:16→21:32)
[2022-06-01] MEDS: TAMSULOSIN HCL 0.4 MG CAP PO SCH ×2 (09:17→21:32)
[2022-06-01] MEDS: POLYETHYLENE GLYCOL (HEALTHYLAX) 3350 17 GM PACKET PO SCH (09:17)
[2022-06-01] MEDS: FLUTICASONE/UMECLIDIN/VILANTER(100-62.5-25 TRELEGY ELLIPTA) INAHLER IH SCH (09:17)
[2022-06-01] MEDS: CEFTRIAXONE 1 GM in DEXTROSE 5%-WATER - 50 ML IVPB SCH (09:17)
[2022-06-02] MEDS: LACTATED RINGERS SOLUTION 1,000 ML/1,000 ML INFUS.BAG IV SCH ×2 (05:15→17:28)
[2022-06-02] MEDS: APIXABAN 5 MG TABLET PO SCH ×2 (09:53→21:10)
[2022-06-02] MEDS: TAMSULOSIN HCL 0.4 MG CAP PO SCH ×2 (09:53→21:10)
[2022-06-02] MEDS: CEFTRIAXONE 1 GM in DEXTROSE 5%-WATER - 50 ML IVPB SCH (09:54)
[2022-06-02] MEDS: POLYETHYLENE GLYCOL (HEALTHYLAX) 3350 17 GM PACKET PO SCH ×2 (09:54→10:02)
[2022-06-02] MEDS: FLUTICASONE/UMECLIDIN/VILANTER(100-62.5-25 TRELEGY ELLIPTA) INAHLER IH SCH (09:54)
[2022-06-03 08:31] LABS: HEMATOCRIT 40.7 % (35.4-49); HEMOGLOBIN 14.2 GM/dL (11.7-16.9); MEAN CELL VOLUME 91.6 fl (80-96); MEAN PLT VOLUME 11.5 fl (7.5-11.1); PLATELET COUNT 231 10^3/uL (134-434); RBC 4.44 M/mm3 (4.00-5.60); RDW 14.4 % (11.9-15.9); WHITE BLOOD COUNT 8.6 K/mm3 (4.0-10.0)
[2022-06-03 08:53] LABS: CALCIUM 8.6 mg/dL (8.5-10.1)
[2022-06-03 08:54] LABS: ALBUMIN 2.8 g/dl (3.4-5.0); BLOOD UREA NITROGEN 16.1 mg/dL (7-18)
[2022-06-03 08:57] LABS: CREATININE 0.9 mg/dL (0.55-1.3)
[2022-06-03 08:59] LABS: BILIRUBIN,TOTAL 0.6 mg/dL (0.2-1); TOT PROT 6.7 g/dl (6.4-8.2)
[2022-06-03] MEDS: TAMSULOSIN HCL 0.4 MG CAP PO SCH ×2 (09:13→21:34)
[2022-06-03] MEDS: POLYETHYLENE GLYCOL (HEALTHYLAX) 3350 17 GM PACKET PO SCH ×2 (09:14→09:23)
[2022-06-03] MEDS: FLUTICASONE/UMECLIDIN/VILANTER(100-62.5-25 TRELEGY ELLIPTA) INAHLER IH SCH (09:14)
[2022-06-03] MEDS: CEFTRIAXONE 1 GM in DEXTROSE 5%-WATER - 50 ML IVPB SCH (09:14)
[2022-06-03] MEDS: APIXABAN 5 MG TABLET PO SCH ×2 (09:14→21:34)
[2022-06-04] MEDS: POLYETHYLENE GLYCOL (HEALTHYLAX) 3350 17 GM PACKET PO SCH (09:13)
[2022-06-04] MEDS: CEFTRIAXONE 1 GM in DEXTROSE 5%-WATER - 50 ML IVPB SCH (09:13)
[2022-06-04] MEDS: TAMSULOSIN HCL 0.4 MG CAP PO SCH (09:13)
[2022-06-04] MEDS: APIXABAN 5 MG TABLET PO SCH (09:13)
[2022-06-04] MEDS: FLUTICASONE/UMECLIDIN/VILANTER(100-62.5-25 TRELEGY ELLIPTA) INAHLER IH SCH (09:15)
[2022-06-04 15:17] VITALS: BP 123/63; PULSE 67; RESP 20; TEMP 97.6
== END 2022-06-04 15:54 | disposition home health service (06) | DRG 193 ==
LOC: JER 13:09 → JERBED 15:26 → J5S 18:03
PROVIDERS: ADMIT Family Medicine; ATTEND Family Medicine
DX: J18.9 Pneumonia, unspecified organism (principal); J96.21 Acute and chronic respiratory failure with hypoxia; I50.32 Chronic diastolic (congestive) heart failure; E87.20 Acidosis, unspecified; I73.9 Peripheral vascular disease, unspecified; J43.9 Emphysema, unspecified; I48.91 Unspecified atrial fibrillation; I11.0 Hypertensive heart disease with heart failure; Z99.81 Dependence on supplemental oxygen; F03.90 Unspecified dementia, unspecified severity, without behavioral disturbance, psychotic disturbance, mood disturbance, and anxiety; G40.909 Epilepsy, unspecified, not intractable, without status epilepticus; E66.9 Obesity, unspecified; Z68.33 Body mass index [BMI] 33.0-33.9, adult
CPT/HCPCS: 0241U-QW; 36415; 71045-TC-FY; 71046-TC-FY; 71250-TC; 80053; 82803; 83605; 83690; 83880; 84484; 85025; 85027; 85610; 85730; 87040; 87899; 93005; 93010; 93306-TC; 97116-GP; 97161-GP; 99285-25

== ENCOUNTER 2023-05-31 20:47 | Emergency (ER) | payer OTHER ==
[2023-05-31 21:01] VITALS: BP 115/58; PULSE 81; RESP 18; TEMP 98.8; BMI 29.6
[2023-05-31] MEDS ORDERED: ALBUTEROL SO4 2.5/IPRATROPIUM 0.5 INH SOL 3 ML VIAL.NEB. NEB ONE (21:35)
[2023-05-31] MEDS ORDERED: DEXAMETHASONE SOD PHOSPHATE 10 MG/1 ML VIAL ONE (21:36)
[2023-05-31] MEDS ORDERED: ACETAMINOPHEN INJECTION 100 ML IVPB ONE (21:36)
[2023-05-31] MEDS: ACETAMINOPHEN 1000 MG/100 ML BAG IVPB ONE (21:57)
[2023-05-31] MEDS: DEXAMETHASONE SOD PHOSPHATE 10 MG/1 ML VIAL IVPUSH ONE (21:57)
[2023-05-31] MEDS: ALBUTEROL SO4 2.5/IPRATROPIUM 0.5 INH SOL 3 ML VIAL.NEB. NEB ONE (21:57)
[2023-05-31 22:01] LABS: VENOUS BASE EXCESS 2.7 mmol/L (-2-2); VENOUS O2 SATURATION 94.5 % (70-80); VENOUS PCO2 41.9 mmHg (38-52); VENOUS PH 7.431 (7.310-7.410)
[2023-05-31 22:03] LABS: HEMATOCRIT 39.6 % (35.4-49); HEMOGLOBIN 13.7 GM/dL (11.7-16.9); MCH 32.3 pg (25.7-33.7); MCHC 34.6 g/dl (32.0-35.9); MEAN CELL VOLUME 93.3 fl (80-96); RBC 4.25 M/mm3 (4.00-5.60); WHITE BLOOD COUNT 7.3 K/mm3 (4.0-10.0)
[2023-05-31 22:04] LABS: BASO % 0.6 % (0-2.0); EOS % 1.2 % (0-4.5); LYMPH % 22.4 % (8-40); NEUT % 64.8 % (42.8-82.8); PLATELET COUNT 177 10^3/uL (134-434)
[2023-05-31 22:18] LABS: ACTIVATED PTT 29.9 SECONDS (25.2-36.5); INR 1.3 (0.83-1.09)
[2023-05-31 22:21] LABS: POTASSIUM 4.3 mmol/L (3.5-5.1)
[2023-05-31 22:23] LABS: CALCIUM 8.9 mg/dL (8.5-10.1)
[2023-05-31 22:24] LABS: ALBUMIN 3.5 g/dl (3.4-5.0); MAGNESIUM 1.8 mg/dL (1.8-2.4)
[2023-05-31 22:27] LABS: CREATININE 1.1 mg/dL (0.55-1.3)
[2023-05-31 22:29] LABS: BILIRUBIN,TOTAL 0.6 mg/dL (0.2-1); TOT PROT 7.1 g/dl (6.4-8.2)
[2023-05-31 22:32] LABS: N-TERMINAL BNP 380.4 pg/ml (5-450)
[2023-05-31] MEDS ORDERED: METOCLOPRAMIDE HCL INJECTION 10 MG/2 ML VIAL ONE (22:49)
[2023-05-31] MEDS: SODIUM CHLORIDE 0.9% 500 ML INFUS.BAG IV ONE (22:54)
[2023-05-31] MEDS: METOCLOPRAMIDE HCL INJECTION 10 MG/2 ML VIAL IVPB ONE (22:55)
== END 2023-05-31 23:58 | disposition home or self-care (01) ==
LOC: JER 20:47
PROC: 3E033GC Introduction of Other Therapeutic Substance into Peripheral Vein, Percutaneous Approach (ICD-10-PCS; principal; 2023-05-31)
PROC: 3E033GC Introduction of Other Therapeutic Substance into Peripheral Vein, Percutaneous Approach (ICD-10-PCS; 2023-05-31)
PROC: 3E033NZ Introduction of Analgesics, Hypnotics, Sedatives into Peripheral Vein, Percutaneous Approach (ICD-10-PCS; 2023-05-31)
PROC: 3E0F7GC Introduction of Other Therapeutic Substance into Respiratory Tract, Via Natural or Artificial Opening (ICD-10-PCS; 2023-05-31)
DX: R51.9 Headache, unspecified (principal); R09.89 Other specified symptoms and signs involving the circulatory and respiratory systems; R06.02 Shortness of breath; R05.9 Cough, unspecified; B34.9 Viral infection, unspecified; Z20.822 Contact with and (suspected) exposure to COVID-19
CPT/HCPCS: 0241U-QW; 36415; 71046-TC-FY; 80053; 82803; 83735; 83880; 84484; 85025; 85610; 85730; 99284-25; J0131; J1100

== ENCOUNTER 2023-07-20 13:49 | Inpatient (IN) | payer OTHER ==
[2023-07-20 15:16] LABS: BASO % 0.4 % (0-2.0); EOS % 0.8 % (0-4.5); HEMATOCRIT 41.6 % (35.4-49); HEMOGLOBIN 14.1 GM/dL (11.7-16.9); LYMPH % 22.7 % (8-40); MCH 31.7 pg (25.7-33.7); MCHC 33.9 g/dl (32.0-35.9); MEAN CELL VOLUME 93.7 fl (80-96); MEAN PLT VOLUME 10.6 fl (7.5-11.1); MONO % 12.4 % (3.8-10.2); NEUT % 63.7 % (42.8-82.8); PLATELET COUNT 194 10^3/uL (134-434); RBC 4.44 M/mm3 (4.00-5.60); RDW 14.5 % (11.9-15.9); WHITE BLOOD COUNT 7.4 K/mm3 (4.0-10.0)
[2023-07-20 15:24] LABS: INR 1.25 (0.83-1.09)
[2023-07-20 15:27] LABS: ACTIVATED PTT 33.2 SECONDS (25.2-36.5)
[2023-07-20 15:41] LABS: POTASSIUM 4.4 mmol/L (3.5-5.1)
[2023-07-20 15:43] LABS: CALCIUM 9.1 mg/dL (8.5-10.1)
[2023-07-20 15:44] LABS: ALBUMIN 3.6 g/dl (3.4-5.0); BLOOD UREA NITROGEN 16.6 mg/dL (7-18); MAGNESIUM 2.3 mg/dL (1.8-2.4)
[2023-07-20 15:47] LABS: CREATININE 0.9 mg/dL (0.55-1.3)
[2023-07-20 15:49] LABS: BILIRUBIN,TOTAL 0.7 mg/dL (0.2-1); TOT PROT 7.4 g/dl (6.4-8.2)
[2023-07-20] MEDS: ACETAMINOPHEN 1000 MG/100 ML BAG IVPB PRN (23:13)
[2023-07-20] MEDS: DEXTROSE 5%-0.45% SALINE 1,000 ML IV SCH (23:13)
[2023-07-20 23:40] VITALS: BMI 30.1
[2023-07-21 07:10] LABS: BASO % 0.6 % (0-2.0); HEMATOCRIT 41.8 % (35.4-49); HEMOGLOBIN 14.1 GM/dL (11.7-16.9); LYMPH % 26.6 % (8-40); MCH 31.8 pg (25.7-33.7); MCHC 33.7 g/dl (32.0-35.9); MEAN CELL VOLUME 94.5 fl (80-96); MEAN PLT VOLUME 11.5 fl (7.5-11.1); MONO % 13.4 % (3.8-10.2); NEUT % 58.4 % (42.8-82.8); PLATELET COUNT 180 10^3/uL (134-434); RBC 4.42 M/mm3 (4.00-5.60); RDW 14.4 % (11.9-15.9); WHITE BLOOD COUNT 6.3 K/mm3 (4.0-10.0)
[2023-07-21 07:33] LABS: CALCIUM 8.8 mg/dL (8.5-10.1)
[2023-07-21 07:34] LABS: BLOOD UREA NITROGEN 13.2 mg/dL (7-18)
[2023-07-21] MEDS: TAMSULOSIN HCL 0.4 MG CAP PO SCH (09:48)
[2023-07-21] MEDS: FLUTICASONE/UMECLIDIN/VILANTER(100-62.5-25 TRELEGY ELLIPTA) INAHLER IH SCH (12:28)
[2023-07-22] MEDS: ACETAMINOPHEN 1000 MG/100 ML BAG IVPB PRN (14:28)
[2023-07-23] MEDS: ACETAMINOPHEN 1000 MG/100 ML BAG IVPB ONE (19:42)
[2023-07-24 08:01] LABS: MAGNESIUM 2.3 mg/dL (1.8-2.4)
[2023-07-24] MEDS: metoPROLOL SUCCINATE 25 MG TAB.SR.24H (FP) PO SCH (12:36)
[2023-07-24] MEDS: LIDOCAINE 5% TOPICAL PATCH TP ONE (18:41)
[2023-07-24] MEDS: ACETAMINOPHEN 325 MG TABLET (FP) PO PRN (18:42)
[2023-07-24] MEDS: LIDOCAINE PATCH REMOVAL MC SCH (21:14)
[2023-07-25 13:55] VITALS: BP 129/70; PULSE 79; RESP 18; TEMP 97.8
== END 2023-07-25 18:04 | disposition home or self-care (01) | DRG 83 ==
LOC: JER 13:49 → JERBED 16:43 → J4S 22:52 → OBSVTOIN 07-21 13:43
PROVIDERS: ADMIT Internal Medicine; ATTEND Internal Medicine
DX: S06.5XAA Traumatic subdural hemorrhage with loss of consciousness status unknown, initial encounter (principal); D68.32 Hemorrhagic disorder due to extrinsic circulating anticoagulants; D68.9 Coagulation defect, unspecified; E78.5 Hyperlipidemia, unspecified; I48.91 Unspecified atrial fibrillation; I73.9 Peripheral vascular disease, unspecified; J44.9 Chronic obstructive pulmonary disease, unspecified; I11.0 Hypertensive heart disease with heart failure; I50.9 Heart failure, unspecified; N40.0 Benign prostatic hyperplasia without lower urinary tract symptoms; M25.551 Pain in right hip; T45.515A Adverse effect of anticoagulants, initial encounter; W18.30XA Fall on same level, unspecified, initial encounter; Y93.9 Activity, unspecified; Y92.099 Unspecified place in other non-institutional residence as the place of occurrence of the external cause; Y99.9 Unspecified external cause status
CPT/HCPCS: 36415; 70450-TC; 72170-TC-FY; 73502-TC-RT-FY; 80048; 80053; 80061; 83036; 83735; 83880; 84100; 84132; 84439; 84443; 84484; 85025; 85610; 85730; 93005; 93010; 93306-TC; 97116-GP; 97161-GP; 99285-25; G0378; J0131

== ENCOUNTER 2023-11-29 15:50 | Inpatient (IN) | payer OTHER ==
[2023-11-29 16:00] VITALS: BMI 30.4
[2023-11-29 17:52] LABS: BASO % 0.4 % (0-2.0); EOS % 0.6 % (0-4.5); LYMPH % 25.7 % (8-40); MCH 31.6 pg (25.7-33.7); MCHC 34.2 g/dl (32.0-35.9); MEAN CELL VOLUME 92.5 fl (80-96); MEAN PLT VOLUME 10.8 fl (7.5-11.1); MONO % 12.3 % (3.8-10.2); PLATELET COUNT 111 10^3/uL (134-434); RBC 4.44 M/mm3 (4.00-5.60); RDW 16.1 % (11.9-15.9); WHITE BLOOD COUNT 7.6 K/mm3 (4.0-10.0)
[2023-11-29 17:57] LABS: INR 1.13 (0.83-1.09); PROTHROMBIN TIME (PATIENT) 12.9 SEC (9.7-13.0)
[2023-11-29 18:00] LABS: ACTIVATED PTT 32.2 SECONDS (25.2-36.5)
[2023-11-29 18:23] LABS: POTASSIUM 4.6 mmol/L (3.5-5.1)
[2023-11-29 18:24] LABS: ALBUMIN 3.6 g/dl (3.4-5.0)
[2023-11-29 18:28] LABS: CREATININE 1.5 mg/dL (0.55-1.3); PHOSPHOROUS 3.7 mg/dL (2.5-4.9)
[2023-11-29 18:29] LABS: BILIRUBIN,TOTAL 0.5 mg/dL (0.2-1); TOT PROT 6.9 g/dl (6.4-8.2)
[2023-11-29] MEDS: SODIUM CHLORIDE 0.9% 500 ML INFUS.BAG IV ONE (18:42)
[2023-11-29] MEDS ORDERED: ACETAMINOPHEN 1000 MG/100 ML BAG IVPB PRN (22:02)
[2023-11-30] MEDS: SODIUM CHLORIDE 1,000 ML IV SCH (01:10)
[2023-11-30 08:18] LABS: BASO % 0.4 % (0-2.0); EOS % 0.7 % (0-4.5); HEMATOCRIT 43.3 % (35.4-49); HEMOGLOBIN 14.4 GM/dL (11.7-16.9); LYMPH % 26.4 % (8-40); MCH 31.2 pg (25.7-33.7); MCHC 33.2 g/dl (32.0-35.9); MEAN CELL VOLUME 93.9 fl (80-96); MEAN PLT VOLUME 10.6 fl (7.5-11.1); MONO % 12.5 % (3.8-10.2); PLATELET COUNT 111 10^3/uL (134-434); RBC 4.61 M/mm3 (4.00-5.60); WHITE BLOOD COUNT 6.8 K/mm3 (4.0-10.0)
[2023-11-30 08:26] LABS: POTASSIUM 4.6 mmol/L (3.5-5.1)
[2023-11-30] MEDS ORDERED: ALBUTEROL SO4 0.083% IH SOL 2.5 MG/3 ML VIAL.NEB. NEB PRN (08:26)
[2023-11-30] MEDS ORDERED: ALBUTEROL SO4 HFA INHALER IH PRN (08:26)
[2023-11-30] MEDS ORDERED: POLYETHYLENE GLYCOL (HEALTHYLAX) 3350 17 GM PACKET PO PRN (08:26)
[2023-11-30 08:29] LABS: CALCIUM 8.9 mg/dL (8.5-10.1)
[2023-11-30 08:30] LABS: BLOOD UREA NITROGEN 20.5 mg/dL (7-18); MAGNESIUM 1.9 mg/dL (1.8-2.4)
[2023-11-30 08:33] LABS: CREATININE 1.2 mg/dL (0.55-1.3)
[2023-11-30] MEDS ORDERED: HYDROCHLOROTHIAZIDE 25 MG TABLET (FP) ONE (09:30)
[2023-11-30] MEDS ORDERED: LISINOPRIL 20 MG TABLET ONE (09:31)
[2023-11-30] MEDS ORDERED: TAMSULOSIN HCL 0.4 MG CAP ONE (09:31)
[2023-11-30] MEDS: HYDROCHLOROTHIAZIDE 25 MG TABLET (FP) PO SCH (09:36)
[2023-11-30] MEDS: LISINOPRIL 20 MG TABLET PO SCH (09:36)
[2023-11-30] MEDS: TAMSULOSIN HCL 0.4 MG CAP PO SCH (09:36)
[2023-11-30] MEDS ORDERED: FLUTICASONE/UMECLIDIN/VILANTER(100-62.5-25 TRELEGY ELLIPTA) INAHLER IH SCH (10:00)
[2023-11-30 10:11] VITALS: BP 136/53; PULSE 81; RESP 20; TEMP 97.4
[2023-11-30] MEDS ORDERED: ACETAMINOPHEN 325 MG TABLET (FP) PO PRN (21:56)
== END 2023-11-30 11:30 | disposition left against medical advice (07) | DRG 65 ==
LOC: JER 15:50 → JERBED 21:28
PROVIDERS: ADMIT Internal Medicine; ATTEND Internal Medicine
DX: I62.00 Nontraumatic subdural hemorrhage, unspecified (principal); I47.20 Ventricular tachycardia, unspecified; N17.9 Acute kidney failure, unspecified; I48.91 Unspecified atrial fibrillation; J44.9 Chronic obstructive pulmonary disease, unspecified; N40.0 Benign prostatic hyperplasia without lower urinary tract symptoms; E78.5 Hyperlipidemia, unspecified; E11.9 Type 2 diabetes mellitus without complications; I11.0 Hypertensive heart disease with heart failure; I50.9 Heart failure, unspecified; I73.9 Peripheral vascular disease, unspecified
CPT/HCPCS: 36415; 70450-TC; 80048; 80053; 83735; 84100; 85025; 85610; 85730; 86850; 86900; 86901; 93005; 93010; 99285-25